=== PATIENT | male | born 1960 | race African-American/Black ===

== ENCOUNTER 2019-08-28 08:37 | Outpatient (CLI) | payer OTHER, SELFPAY ==
[2019-08-28 09:05] LABS: Hematocrit 42.8 % (42.0-52.0); Hemoglobin 14.3 g/dL (14.0-18.0); Mean Corpuscular HGB Conc 33.4 g/dl (32-36); Mean Corpuscular Hemoglobin 29.5 pg (26-34); Mean Corpuscular Volume 88.4 fl (80-100); Mean Platelet Volume 11.3 fl (7.4-10.4); Platelet Count Result 164 k/mm3 (150-375); Red Blood Count 4.84 M/mm3 (4.6-6.20); Red Cell Distribution Width 12.9 % (11.5-14.5); White Blood Count 4.5 K/mm3 (4.5-10.0)
[2019-08-28 09:19] LABS: Hemoglobin A1C 6.3 % (<5.7)
[2019-08-28 09:22] LABS: Alanine Aminotransferase 26 U/L (4-50); Albumin Level 4.2 g/dL (3.5-5.1); Alkaline Phosphatase 52 U/L (38-126); Aspartate Amino Transferase 31 U/L (17-59); Bilirubin,Total 0.5 mg/dL (0.2-1.3); Blood Urea Nitrogen 14 mg/dL (9-20); Carbon Dioxide 26 mmol/L (22-30); Chloride 102 mmol/L (98-107); Cholesterol 209 mg/dL (0-200); Estimated Glomerular Filt Rate > 60; Glucose 110 mg/dL (75-110); HDL Direct 44 mg/dL; Sodium 138 mmol/L (137-145); Triglycerides 158 mg/dL (<150)
[2019-08-28 09:32] LABS: LDL Cholesterol Direct 129 mg/dL
[2019-08-28 09:52] LABS: Prostate Specific Antigen 0.7 ng/mL (< OR = 4.0)
[2019-08-28 14:06] LABS: Creatinine Urine 133.8 mg/dL
[2019-08-28 14:10] LABS: MALB Creatinine Ratio 5.4 mg/g (0-30); Microalbumin Urine Random 7.2 mg/L (0-16.7)
== END 2019-08-28 08:38 | disposition home or self-care (01) ==
PROVIDERS: PCP Internal Medicine; Visit Provider Internal Medicine
DX: I10 Essential (primary) hypertension (principal); R73.01 Impaired fasting glucose; E78.5 Hyperlipidemia, unspecified; Z12.5 Encounter for screening for malignant neoplasm of prostate; Z79.899 Other long term (current) drug therapy
CPT/HCPCS: 36415; 80053; 80061; 82043; 83036; 84153; 84443; 85027; G0103

== ENCOUNTER 2019-09-23 11:06 | Outpatient (CLI) | payer OTHER, SELFPAY ==
--- NOTE | 2019-09-23 11:21 | ECHO_ITS ---
Patient Info Name: Lukas Monzon Age: 59 years : 1960 Gender: Male Ht: 72 in Wt: 225 lbs BSA: 2.30 m2 HR: 131 bpm BP: 88 / 85 mmHg Heart Rhythm: Sinus Rhythm Exam Date: 09/23/2019 11:46 AM Exam Location: [facility] Pulmonary Patient Status: Outpatient Admit Date: 09/23/2019 Staff Ordering Physician: Alfonso Mcfarlane MD Bulb Sorter: Chloé Jacobs RDCS Attending Provider: Alfonso Mcfarlane MD Exam Type: CA echo doppler color flow Study Info Indications R00.2 - Palpitations Complete two-dimensional, color flow and Doppler transthoracic echocardiogram is performed. Summary 1. Left ventricular chamber dimension is mildly enlarged. 2. Left ventricular systolic function is normal, estimated at 60-65%. 3. The left ventricular diastolic function is grade I diastolic dysfunction. 4. There is mild mitral valve regurgitation. 5. There is trace pulmonic regurgitation. Left Ventricle Tissue doppler is not performed. Left ventricular chamber dimension is mildly enlarged. Left ventricular systolic function is normal, estimated at 60-65%. The left ventricular diastolic function is grade I diastolic dysfunction. Right Ventricle Right ventricular chamber dimension is normal. Right ventricular systolic function is normal. Left Atria Left atrial chamber dimension is normal. Right Atria Right atrial chamber dimension is normal. Aortic Valve The aortic valve is trileaflet. There is no aortic valve stenosis. There is no aortic valve regurgitation. Pulmonic Valve There is trace pulmonic regurgitation. Mitral Valve There is no mitral valve stenosis. There is mild mitral valve regurgitation. Tricuspid Valve There is no tricuspid valve regurgitation. Pericardium/Pleural There is no pericardial effusion. Inferior Vena Cava Normal inferior vena cava with >50% collapse upon inspiration consistent with normal right atrial pressure, 5 mmHg. Aorta The aortic root size at the sinus of Valsalva is normal. Left Ventricular Outflow Tract Name Value Normal LVOT 2D LVOT Diameter 2.1 cm Pulmonic Valve Name Value Normal PV Doppler PV Peak Velocity 104 cm/s PV Peak Gradient 4 mmHg Mitral Valve Name Value Normal MV Doppler MV Decel [place] 324 cm/s2 MV PHT 61 ms MV Area (PHT) 3.6 cm2 4.0-5.0 MV Diastolic Function MV E Peak Velocity 69 cm/s MV A Peak Velocity 90 cm/s MV E/A 0.8 M
--- NOTE | 2019-09-23 11:22 | ECG_ITS ---
Measurements Intervals [place] Rate: 77 P: 24 GA: 192 QRS: -24 QRSD: 101 T: 16 QT: 380 QTc: 432 Interpretive Statements SINUS RHYTHM DELAYED PRECORDIAL R/S TRANSITION BORDERLINE ECG Electronically Signed On 09-23-2019 11:40:21 CDT by Julio Caldera D.O.
== END 2019-09-23 11:07 | disposition home or self-care (01) ==
LOC: ANHCARD 11:09
PROVIDERS: PCP Internal Medicine; Visit Provider Internal Medicine
DX: R00.1 Bradycardia, unspecified (principal); R00.2 Palpitations; R94.31 Abnormal electrocardiogram [ECG] [EKG]
CPT/HCPCS: 93005; 93306

== ENCOUNTER 2019-10-08 12:48 | Outpatient (CLI) | payer OTHER, SELFPAY ==
--- NOTE | 2019-10-11 12:23 | WPDHOLTEREM ---
Holter/Event Monitor Holter/Event Monitor Date of procedure: 10/08/19 Procedure Type: 48 hour holter monitor Indications: Palpitations Conclusion: 1. 48 hour holter monitor on 10/08/19. 2. Predominant rhythm is sinus rhythm. HR range 49-136 bpm; average HR 84 bpm. 3. There are 10,405 premature supraventricular complexes, 423 supraventricular couplets, 2,634 supraventricular bigeminy, and 6 supraventricular trigeminy. There are 2 short runs of atrial tachycardia, fastest at 146 bpm and longest lasting 5 beats. 4. There are 302 premature ventricular complexes and 9 ventricular bigeminy. No ventricular tachycardia. 5. Underlying first degree AV block. No significant pauses greater than 2 seconds. 6. Patient reports several episodes of skipping beats which demonstrate sinus rhythm, HR range 75-100 bpm with 3 PAC's.
== END 2019-10-08 12:49 | disposition home or self-care (01) ==
LOC: ANHCARD 12:51
PROVIDERS: PCP Internal Medicine; Visit Provider Internal Medicine
DX: R00.2 Palpitations (principal); I44.0 Atrioventricular block, first degree; I49.3 Ventricular premature depolarization; R00.8 Other abnormalities of heart beat
CPT/HCPCS: 93225; 93226

== ENCOUNTER 2020-08-26 08:29 | Outpatient (CLI) | payer OTHER, SELFPAY ==
[2020-08-26 09:06] LABS: Alanine Aminotransferase 32 U/L (4-50); Albumin Level 4.3 g/dL (3.5-5.1); Alkaline Phosphatase 53 U/L (38-126); Anion Gap 5 mmol/L (8-16); Aspartate Amino Transferase 37 U/L (17-59); Bilirubin,Total 0.6 mg/dL (0.2-1.3); Blood Urea Nitrogen 19 mg/dL (9-20); Calcium 9.2 mg/dL (8.4-10.2); Carbon Dioxide 29 mmol/L (22-30); Chloride 105 mmol/L (98-107); Cholesterol 175 mg/dL (0-200); Estimated Glomerular Filt Rate > 60; Glucose 110 mg/dL (75-110); HDL Direct 47 mg/dL; Sodium 139 mmol/L (137-145); Triglycerides 105 mg/dL (<150)
[2020-08-26 09:17] LABS: LDL Cholesterol Direct 98 mg/dL
[2020-08-26 09:25] LABS: Hemoglobin A1C 6.1 % (<5.7)
[2020-08-26 09:47] LABS: MALB Creatinine Ratio 8.1 mg/g (0-30); Microalbumin Urine Random 14.7 mg/L (0-16.7)
[2020-08-26 11:06] LABS: Creatinine Urine 180.7 mg/dL
== END 2020-08-26 08:30 | disposition home or self-care (01) ==
PROVIDERS: PCP Internal Medicine; Visit Provider Internal Medicine
DX: R73.01 Impaired fasting glucose (principal); I10 Essential (primary) hypertension
CPT/HCPCS: 36415; 80053; 80061; 82043; 83036

== ENCOUNTER 2020-10-27 07:58 | Outpatient (CLI) | payer OTHER, SELFPAY ==
--- NOTE | 2020-11-01 12:12 | WPDHOMESLEEP ---
Sleep Study - Home Unattended Date of Study: 10/27/20 Ordering Provider: Alfonso Mcfarlane MD Interpreting Provider: Loreta Moreno MD Home Sleep Study Type: Watch PAT Height: 1.83 m Weight: 106.594 kg Body Mass Index: 31.8 Neck Circumference (inches): 17 [place]: 5 Reason for Sleep Study Snoring, irregular heart beats Sleep History Lukas Monzon is a 60 year old man who snores occasionally, and it is always loud enough that others complain about it. He does not wake from sleep feeling short of breath. He occasionally wakes at night with heartburn belching or coughing. He occasionally has trouble sleeping with a cold. He kimmie not wake at night gasping for breath. He rarely has trouble breathing at night witnessed by others. He occasionally sweats excessively at night. He frequently notices his heart pounding or beating irregularly at night. He rarely falls asleep in the day,, never involuntarily, and he never falls asleep while driving. He does not have loss of muscle tone with strong emotion. He does not have daytime difficulty due to excessive sleepiness. He occasionally feels paralyzed on waking or falling asleep. He occasionally has vivid dreamlike scenes on waking or falling asleep. He is not afraid to go to sleep. He occasionally has nightmares. He rarely remembers his dreams. He occasionally has racing thoughts. He never feels sad or depressed. He occasionally has anxiety, and on occasion has muscular tension. He never notices parts of his body jerking, and he does not kick at night. He does not have crawling or aching feelings in his legs. He occasionally has leg pain at night. He does not have morning jaw pain, does not grind his teeth at night, is not bothered by pain in the day, and is not awakened by pain at night. He frequently wakes up feeling stiff in the morning with sore or achy muscles and pain in the neck and spine. Normal bedtime is 9:00 p.m. falling asleep shortly, waking twice at night to urinate, returning to sleep shortly. He wakes at 3:30 am. His weekend schedule is different with a bedtime of 11;00 p.m. and he wakes at 7:00 a.m. He sometimes takes naps in the afternoon or evening, and sometimes a short nap is refreshing. He is drowsy in the morning for 1 hour or longer. He feels better in the afternoon compared to other times of day. Habits: Former smoker. Caffeine: one cup of coffee and 1 soda a day. Alcohol: 1 beer and a shot daily. No recreational drugs. [facility] Past Medical History Medical History (Updated 11/01/20 @ 12:26 by Loreta Moreno MD) Dyslipidemia Essential hypertension GERD (gastroesophageal reflux disease) IFG (impaired fasting glucose) Family History Family History Grandparent Diabetes mellitus Mother Diabetes mellitus Family history of obesity Hypertension Family history of kidney disease Other Family history of malignant neoplasm Social History Social History (Updated 09/05/20 @ 14:08 by Mita May MA) Smoking status: Former smoker Second hand tobacco smoke exposure: No Smoking end date: 06/16/00 Alcohol intake: current Drinks per week: 24 Substance use type: marijuana Medications Home Medications Medication Instructions Recorded Confirmed Type aspirin 81 mg tablet,delayed 81 mg PO DAILY 07/12/19 09/05/20 History release cholecalciferol (vitamin D3) 125 5,000 unit PO DAILY 07/12/19 09/05/20 History mcg (5,000 unit) capsule coenzyme Q10 10 mg capsule 10 mg PO ONCE 07/12/19 09/05/20 History multivitamin 1 tablet PO DAILY 07/12/19 09/05/20 History niacin 500 mg capsule,extended 500 mg PO .QHS cap 07/12/19 09/05/20 History release turmeric root extract 500 mg 500 mg PO DAILY 07/12/19 09/05/20 History capsule rosuvastatin 5 mg tablet 5 mg PO DAILY #90 tablet 03/21/20 09/05/20 Rx sildenafil 50 mg tablet 50 mg PO DAILY PRN #10 tablet 03/21/20 09/05/20 Rx diltiazem HCl 60 mg See Rx Ins
[2020-11-01 12:22] VITALS: BMI 31.8
== END 2020-10-27 07:59 | disposition home or self-care (01) ==
LOC: ANHCSM 07:58
PROVIDERS: PCP Internal Medicine; Visit Provider Internal Medicine
DX: G47.10 Hypersomnia, unspecified (principal); G47.33 Obstructive sleep apnea (adult) (pediatric)
CPT/HCPCS: 95800

== ENCOUNTER → 2020-11-21 02:45 | Outpatient (CLI) | payer OTHER, SELFPAY ==
[2020-11-21 23:32] LABS: SARS-CoV-2 RNA PCR Negative
== END ==
PROVIDERS: PCP Internal Medicine; Visit Provider Internal Medicine Critical Care Medicine
DX: R68.89 Other general symptoms and signs (principal); Z20.822 Contact with and (suspected) exposure to COVID-19
CPT/HCPCS: C9803; U0003; U0005

== ENCOUNTER 2020-11-24 16:00 | Outpatient (CLI) | payer OTHER, SELFPAY ==
--- NOTE | 2020-11-29 18:22 | WPDSLEEPSTUD ---
Sleep Study Date of Study: 11/24/20 Ordering Provider: Alfonso Mcfarlane MD Interpreting Physician: Loreta Moreno MD Sleep Study Type: CPAP Titration Height: 1.83 m Weight: 108.862 kg Body Mass Index: 32.5 Neck Circumference (inches): 17 [place]: 11 Reason for Sleep Study 10/27/2020 Home sleep test with WatchPat showing moderate obstructive sleep apnea, AHI 15.3, central AHI 5.9, desaturation to 75%, 5.7 minutes spent below 88% which is 1.3% of the total sleep time; he presents for a CPAP titration. Sleep History Lukas Monzon is a 60 year old man who snores occasionally, and it is always loud enough that others complain about it. He does not wake from sleep feeling short of breath. He occasionally wakes at night with heartburn belching or coughing. He occasionally has trouble sleeping with a cold. He kimmie not wake at night gasping for breath. He rarely has trouble breathing at night witnessed by others. He occasionally sweats excessively at night. He frequently notices his heart pounding or beating irregularly at night. He rarely falls asleep in the day,, never involuntarily, and he never falls asleep while driving. He does not have loss of muscle tone with strong emotion. He does not have daytime difficulty due to excessive sleepiness. He occasionally feels paralyzed on waking or falling asleep. He occasionally has vivid dreamlike scenes on waking or falling asleep. He is not afraid to go to sleep. He occasionally has nightmares. He rarely remembers his dreams. He occasionally has racing thoughts. He never feels sad or depressed. He occasionally has anxiety, and on occasion has muscular tension. He never notices parts of his body jerking, and he does not kick at night. He does not have crawling or aching feelings in his legs. He occasionally has leg pain at night. He does not have morning jaw pain, does not grind his teeth at night, is not bothered by pain in the day, and is not awakened by pain at night. He frequently wakes up feeling stiff in the morning with sore or achy muscles and pain in the neck and spine. Normal bedtime is 9:00 p.m. falling asleep shortly, waking twice at night to urinate, returning to sleep shortly. He wakes at 3:30 am. His weekend schedule is different with a bedtime of 11;00 p.m. and he wakes at 7:00 a.m. He sometimes takes naps in the afternoon or evening, and sometimes a short nap is refreshing. He is drowsy in the morning for 1 hour or longer. He feels better in the afternoon compared to other times of day. Habits: Former smoker. Caffeine: one cup of coffee and 1 soda a day. Alcohol: 1 beer and a shot daily. No recreational drugs COUNTS INCLUDE 234 BEDS AT THE [facility] Past Medical History Medical History (Updated 11/29/20 @ 19:22 by Lortea Moreno MD) Dyslipidemia Essential hypertension GERD (gastroesophageal reflux disease) IFG (impaired fasting glucose) Obstructive sleep apnea (~10/2020) Family History Family History Grandparent Diabetes mellitus Mother Diabetes mellitus Family history of obesity Hypertension Family history of kidney disease Other Family history of malignant neoplasm Social History Social History (Updated 09/05/20 @ 14:08 by Mita May MA) Smoking status: Former smoker Second hand tobacco smoke exposure: No Smoking end date: 06/16/00 Alcohol intake: current Drinks per week: 24 Substance use type: marijuana Medications Home Medications Medication Instructions Recorded Confirmed Type aspirin 81 mg tablet,delayed 81 mg PO DAILY 07/12/19 09/05/20 History release cholecalciferol (vitamin D3) 125 5,000 unit PO DAILY 07/12/19 09/05/20 History mcg (5,000 unit) capsule coenzyme Q10 10 mg capsule 10 mg PO ONCE 07/12/19 09/05/20 History multivitamin 1 tablet PO DAILY 07/12/19 09/05/20 History niacin 500 mg capsule,extended 500 mg PO .QHS cap 07/12/19 09/05/20 History release turmeric root extract 500 mg 500 mg PO DAILY
[2020-11-29 18:23] VITALS: BMI 32.5
== END 2020-11-25 07:18 | disposition home or self-care (01) ==
LOC: ANHCSM 11-27 10:14
PROVIDERS: PCP Internal Medicine; Visit Provider Internal Medicine
DX: G47.33 Obstructive sleep apnea (adult) (pediatric) (principal); Z68.32 Body mass index [BMI] 32.0-32.9, adult
CPT/HCPCS: 95811

== ENCOUNTER 2021-03-12 09:27 | Outpatient (CLI) | payer OTHER, SELFPAY ==
[2021-03-12 09:57] LABS: Basophils Percent Auto 0.7 % (0.2-1.2); Eosinophils Percent Auto 0.7 % (0-4.4); Hemoglobin 13.9 g/dL (14.0-18.0); Immature Granulocyte Absolute 0.03 K/mm3 (0.00-0.031); Immature Granulocyte Percent A 0.5 % (0-0.5); Lymphocytes Absolute Auto 1.62 K/mm3 (0.9-3.2); Lymphocytes Percent Auto 28.6 % (18.3-44.2); Mean Corpuscular HGB Conc 33.9 g/dl (32-36); Mean Corpuscular Hemoglobin 29.9 pg (26-34); Mean Corpuscular Volume 88.2 fl (80-100); Mean Platelet Volume 11.1 fl (7.4-10.4); Monocytes Absolute Auto 0.7 K/mm3 (0.1-0.6); Monocytes Percent Auto 11.8 % (2.6-8.5); Neutrophils Absolute Auto 3.3 K/mm3 (1.3-6.7); Neutrophils Percent Auto 57.7 % (45.5-73.1); Platelet Count Result 167 k/mm3 (150-375); Red Blood Count 4.65 M/mm3 (4.6-6.20); Red Cell Distribution Width 13.6 % (11.5-14.5); White Blood Count 5.7 K/mm3 (4.5-10.0)
[2021-03-12 10:41] LABS: Prostate Specific Antigen 0.9 ng/mL (< OR = 4.0)
[2021-03-12 11:19] LABS: Hemoglobin A1C 6.3 % (<5.7)
[2021-03-12 11:29] LABS: Vitamin D 25 Hydroxy 46.9 ng/mL
[2021-03-12 11:36] LABS: Creatinine Urine 243.1 mg/dL
[2021-03-12 11:37] LABS: Alanine Aminotransferase 42 U/L (4-50); Albumin Level 4.5 g/dL (3.5-5.1); Alkaline Phosphatase 57 U/L (38-126); Anion Gap 11 mmol/L (8-16); Aspartate Amino Transferase 38 U/L (17-59); Bilirubin,Total 0.7 mg/dL (0.2-1.3); Blood Urea Nitrogen 17 mg/dL (9-20); Calcium 9.3 mg/dL (8.4-10.2); Carbon Dioxide 26 mmol/L (22-30); Chloride 102 mmol/L (98-107); Estimated Glomerular Filt Rate > 60; Glucose 109 mg/dL (65-110); Potassium 4.1 mmol/L (3.4-5.0); Sodium 139 mmol/L (137-145)
[2021-03-12 11:40] LABS: MALB Creatinine Ratio 9.8 mg/g (0-30); Microalbumin Urine Random 23.9 mg/L (0-16.7)
== END 2021-03-12 09:28 | disposition home or self-care (01) ==
PROVIDERS: PCP Internal Medicine; Visit Provider Internal Medicine
DX: R73.01 Impaired fasting glucose (principal); E78.5 Hyperlipidemia, unspecified; I10 Essential (primary) hypertension; K21.9 Gastro-esophageal reflux disease without esophagitis; E55.9 Vitamin D deficiency, unspecified; Z12.5 Encounter for screening for malignant neoplasm of prostate
CPT/HCPCS: 36415; 80053; 82043; 82306; 83036; 84153; 84443; 85025; G0103

== ENCOUNTER → 2021-05-26 00:49 | Outpatient (CLI) | payer OTHER, SELFPAY ==
[2021-05-26 12:25] LABS: Influenza Control Positive
[2021-05-26 20:10] LABS: SARS-CoV-2 RNA PCR Negative
== END ==
PROVIDERS: PCP Internal Medicine; Visit Provider Internal Medicine
DX: R68.89 Other general symptoms and signs (principal); Z20.822 Contact with and (suspected) exposure to COVID-19
CPT/HCPCS: 87804; C9803; U0003; U0005

== ENCOUNTER 2021-06-15 09:30 | Outpatient (CLI) | payer OTHER, SELFPAY ==
[2021-06-15 10:26] LABS: Creatinine Urine 281.9 mg/dL
[2021-06-15 10:31] LABS: MALB Creatinine Ratio 4.1 mg/g (0-30); Microalbumin Urine Random 11.5 mg/L (0-16.7)
[2021-06-15 10:32] LABS: Hemoglobin A1C 6.1 % (<5.7)
== END 2021-06-15 09:31 | disposition home or self-care (01) ==
LOC: ANHLAB 09:32
PROVIDERS: PCP Internal Medicine; Visit Provider Internal Medicine
DX: R73.01 Impaired fasting glucose (principal)
CPT/HCPCS: 36415; 82043; 83036

== ENCOUNTER 2021-12-22 09:40 | Emergency (ER) | payer OTHER, SELFPAY ==
[2021-12-22 10:10] VITALS: BP 135/76; PULSE 97; RESP 20; TEMP 36.4; O2SAT 100
--- NOTE | 2021-12-22 10:26 | ED.GENADULT ---
HPI - General Adult General Chief complaint: Ear Stated complaint: ear problems Time Seen by Provider: 12/22/21 10:45 Source: patient Mode of arrival: ambulatory Limitations: no limitations History of Present Illness HPI narrative: 61-year-old male patient presents to the [facility] with complaints of the right ear feeling clogged and somewhat painful and states he has not been able to hear out of it. Patient states its been clogged for about a month however is gotten worse over the Past couple of days now he cannot hear out of it at all. Patient states he tried some [id number] wax removal kit from [employer] but thinks that it just got shoved deeper down and did not really get anything out. Denies fevers, body aches or chills. Related Data Home Medications Medication Instructions Recorded Confirmed aspirin 81 mg tablet,delayed 81 mg PO DAILY 07/12/19 10/05/21 release (Adult Low Dose Aspirin) cholecalciferol (vitamin D3) 125 5,000 unit PO DAILY 07/12/19 10/05/21 mcg (5,000 unit) capsule coenzyme Q10 10 mg capsule (Co 10 mg PO ONCE 07/12/19 10/05/21 Q-10) multivitamin 1 tablet PO DAILY 07/12/19 10/05/21 niacin 500 mg capsule,extended 500 mg PO .QHS 07/12/19 10/05/21 release turmeric root extract 500 mg 500 mg PO DAILY 07/12/19 10/05/21 capsule Allergies Allergy/AdvReac Type Severity Reaction Status Date / Time No Known Allergies Allergy Verified 10/05/21 13:21 Review of Systems Review of Systems: CONSTITUTIONAL: Denies fever, chills, or sweats. EYES: Denies visual changes, redness, or discharge. ENT: Denies rhinorrhea, congestion, sore throat, positive right ear pain and decreased hearing CARDIOVASCULAR: Denies chest pain, palpitations, or edema. RESPIRATORY: Denies cough or dyspnea. GASTROINTESTINAL: Denies abdominal pain, nausea, vomiting, or diarrhea. GENITOURINARY: Denies dysuria or hematuria. SKIN: Denies rash or itching. MUSCULOSKELETAL: Denies back pain, joint pain, or myalgia. NEUROLOGIC: Denies headache, numbness, or weakness. PSYCHIATRIC: Denies anxiety or depression. [facility] Past Medical History Medical History Dyslipidemia Essential hypertension GERD (gastroesophageal reflux disease) IFG (impaired fasting glucose) Obstructive sleep apnea (~10/2020) Family History Family History Grandparent Diabetes mellitus Mother Diabetes mellitus Family history of obesity Hypertension Family history of kidney disease Other Family history of malignant neoplasm Social History Social History Second hand tobacco smoke exposure: No Smoking end date: 06/16/00 Alcohol intake: current Drinks per week: 24 Substance use: former Substance use type: marijuana Comments At the time of my signature I agree with nursing past medical history, surgical, social, and family history. There is no relevant family history pertinent to the presenting complaint. Exam Narrative: GENERAL: Well-appearing, well-nourished, and in no acute distress. HEAD: Normocephalic, atraumatic. EYES: PERRLA and EOMI. ENT: Nares clear, no rhinorrhea or epistaxis. Mucous membranes moist. Unable to visualize tympanic membranes in bilateral ears due to cerumen impaction. NECK: Supple. No lymphadenopathy CHEST: Clear to auscultation. No respiratory distress. HEART: Regular rate and rhythm. No murmur heard. Normal peripheral pulses. ABDOMEN: Soft, nontender, nondistended, normal active bowel sounds. EXTREMITIES: Normal range of motion. No edema. SKIN: Warm, dry, no rash. NEURO: No focal deficits. Alert and oriented x3. Course Course Level of Care: Express Care Visit Vital Signs Vital signs: Vital Signs Temperature 36.4 C L 12/22/21 10:10 Pulse Rate 97 12/22/21 10:10 Respiratory Rate 20 12/22/21 10:10 Blood Pressure 135/76
[2021-12-22] MEDS: CARBAMIDE PEROXIDE 6.5% OT SOLN 15 ML BTL 5 DROP EACH EAR (10:53)
== END 2021-12-22 11:37 | disposition home or self-care (01) ==
PROVIDERS: Emergency Provider Nurse Practitioner Family; PCP Internal Medicine
DX: H61.23 Impacted cerumen, bilateral (principal); Z87.891 Personal history of nicotine dependence; E78.5 Hyperlipidemia, unspecified; I10 Essential (primary) hypertension; K21.9 Gastro-esophageal reflux disease without esophagitis; G47.33 Obstructive sleep apnea (adult) (pediatric); R73.01 Impaired fasting glucose; Z79.82 Long term (current) use of aspirin
CPT/HCPCS: 69210; 99212; A9270; G0463

== ENCOUNTER 2022-02-04 08:04 | Emergency (ER) | payer OTHER, SELFPAY ==
[2022-02-04 08:11] VITALS: BP 149/97; PULSE 91; RESP 16; TEMP 37.7; O2SAT 99
--- NOTE | 2022-02-04 08:12 | ED.URI ---
HPI - URI/Sore Throat General Chief Complaint: Upper Respiratory Infection Stated Complaint: uri Time Seen by Provider: 02/04/22 08:12 Source: patient, RN notes reviewed and old records reviewed Mode of arrival: ambulatory Limitations: no limitations History of Present Illness HPI Narrative: 62-year-old male presents to the [facility] with concerns that he might have COVID. Patient states for the last couple months he has had some congestion, lots of phlegm. For the last 2 days has developed a fever increased fatigue and increased congestion. Reports a fever of 101 last night. Has been taking acid reflux medication and Mucinex to help with symptoms. Denies any chest pain or abdominal pain. Denies any shortness of breath, nausea, vomiting. MD elicited complaint: fever Related Data Home Medications Medication Instructions Recorded Confirmed aspirin 81 mg tablet,delayed 81 mg PO DAILY 07/12/19 02/04/22 release (Adult Low Dose Aspirin) cholecalciferol (vitamin D3) 125 5,000 unit PO DAILY 07/12/19 02/04/22 mcg (5,000 unit) capsule coenzyme Q10 10 mg capsule (Co 10 mg PO ONCE 07/12/19 02/04/22 Q-10) multivitamin 1 tablet PO DAILY 07/12/19 02/04/22 niacin 500 mg capsule,extended 500 mg PO .QHS 07/12/19 02/04/22 release turmeric root extract 500 mg 500 mg PO DAILY 07/12/19 02/04/22 capsule Allergies Allergy/AdvReac Type Severity Reaction Status Date / Time No Known Allergies Allergy Verified 10/05/21 13:21 Review of Systems Review of Systems: All systems reviewed & are unremarkable except as noted in HPI and below Constitutional: Constitutional: Reports as per HPI, Denies chills, Reports fatigue and Reports fever(s) Eyes: Eyes: Reports no additional eye complaints ENT: Reports as per HPI and Reports nasal congestion Cardiovascular: Cardiovascular: Reports no additional cardiovascular complaints Respiratory: Respiratory: Reports as per HPI, Reports chest congestion, Denies cough, Denies dyspnea and Denies wheezing Gastrointestinal: Gastrointestinal: Reports no additional gastrointestinal complaints Musculoskeletal: Musculoskeletal: Reports no additional musculoskeletal complaints Integumentary/Breasts: Skin/Breast: Reports system reviewed and no additional complaints, except as docu Neurologic: Reports system reviewed and no additional complaints, except as documented Psychiatric: Psychiatric: Reports no additional psychiatric complaints Allergic/Immunologic: Allergic/Immunologic: Reports no additional allergic/immunologic complaints PMFSH Past Medical History Medical History Dyslipidemia Essential hypertension GERD (gastroesophageal reflux disease) IFG (impaired fasting glucose) Obstructive sleep apnea (~10/2020) Family History Family History Grandparent Diabetes mellitus Mother Diabetes mellitus Family history of obesity Hypertension Family history of kidney disease Other Family history of malignant neoplasm Social History Social History Second hand tobacco smoke exposure: No Smoking end date: 06/16/00 Alcohol intake: current Drinks per week: 24 Substance use: former Substance use type: marijuana Comments At the time of my signature, I reviewed and agree with the nursing past medical, surgical, social, and family history. There is no relevant family history pertinent to the patient complaint. Exam Const: General: no acute distress, alert and ill appearing (Acute on chronic) acutely and chronically Nutritional Appearance: well nourished Orientation/consciousness: patient oriented x3 Limitations: no limitations HENMT: Head: normal to inspection Ears: external ears normal and Abnormal EAC present excessive cerumen bilateral; no erythema and no edema General nose exam: Normal external nose present
== END 2022-02-04 08:50 | disposition home or self-care (01) ==
PROVIDERS: Emergency Provider Nurse Practitioner
DX: U07.1 COVID-19 (principal); H61.23 Impacted cerumen, bilateral; E78.5 Hyperlipidemia, unspecified; I10 Essential (primary) hypertension; K21.9 Gastro-esophageal reflux disease without esophagitis; R73.01 Impaired fasting glucose; G47.33 Obstructive sleep apnea (adult) (pediatric); Z87.891 Personal history of nicotine dependence
CPT/HCPCS: 69210; 87426; 99213; C9803; G0463

== ENCOUNTER 2022-04-06 08:18 | Outpatient (CLI) | payer OTHER, SELFPAY ==
[2022-04-06 09:26] LABS: Vitamin D 25 Hydroxy 63.5 ng/mL
[2022-04-06 09:44] LABS: Alanine Aminotransferase 37 U/L (6-50); Albumin Level 4.3 g/dL (3.5-5.1); Alkaline Phosphatase 53 U/L (38-126); Anion Gap 11 mmol/L (8-16); Aspartate Amino Transferase 41 U/L (17-59); Bilirubin,Total 0.4 mg/dL (0.2-1.3); Blood Urea Nitrogen 21 mg/dL (9-20); Calcium 8.9 mg/dL (8.4-10.2); Carbon Dioxide 25 mmol/L (22-30); Chloride 104 mmol/L (98-107); Cholesterol 168 mg/dL (0-200); Estimated Glomerular Filt Rate > 60; Glucose 110 mg/dL (65-110); HDL Direct 42 mg/dL; Sodium 140 mmol/L (137-145); Triglycerides 95 mg/dL (<150)
[2022-04-06 09:54] LABS: Hemoglobin A1C 6.6 % (<5.7); LDL Cholesterol Direct 98 mg/dL
[2022-04-06 10:10] LABS: Prostate Specific Antigen 1.1 ng/mL (< OR = 4.0)
== END 2022-04-06 08:19 | disposition home or self-care (01) ==
PROVIDERS: PCP Internal Medicine; Visit Provider Internal Medicine
DX: R73.01 Impaired fasting glucose (principal); I10 Essential (primary) hypertension; E78.5 Hyperlipidemia, unspecified; Z12.5 Encounter for screening for malignant neoplasm of prostate; E55.9 Vitamin D deficiency, unspecified
CPT/HCPCS: 36415; 80053; 80061; 82306; 83036; 84153; G0103

== ENCOUNTER 2022-05-31 09:48 | Emergency (ER) | payer OTHER, SELFPAY ==
[2022-05-31 09:57] VITALS: BP 138/118; PULSE 68; RESP 18; TEMP 36.4; O2SAT 99
--- NOTE | 2022-05-31 10:03 | ED.URI ---
HPI - URI/Sore Throat General Chief Complaint: Upper Respiratory Infection Stated Complaint: Sore Throat Time Seen by Provider: 05/31/22 10:00 Source: patient Mode of arrival: ambulatory Limitations: no limitations History of Present Illness HPI Narrative: Mr. Monzon is a 62-year-old male patient presenting to the clinic today with complaints of possible salivary gland stone obstruction. He reports that he has had this in the past. Reports 4 days ago his right lower jaw began to swell and now it is tender and painful. He reports he has been sucking on some sour candy however this is not improved. States that when he is swallowing the saliva does have a foul taste. He denies any fever or chills. Related Data Home Medications Medication Instructions Recorded Confirmed aspirin 81 mg tablet,delayed 81 mg PO DAILY 07/12/19 05/31/22 release (Adult Low Dose Aspirin) cholecalciferol (vitamin D3) 125 5,000 unit PO DAILY 07/12/19 05/31/22 mcg (5,000 unit) capsule multivitamin 1 tablet PO DAILY 07/12/19 05/31/22 niacin 500 mg capsule,extended 500 mg PO .QHS 07/12/19 05/31/22 release turmeric root extract 500 mg 500 mg PO DAILY 07/12/19 05/31/22 capsule Allergies Allergy/AdvReac Type Severity Reaction Status Date / Time No Known Allergies Allergy Verified 05/31/22 11:12 Review of Systems Review of Systems: Pertinent positives per HPI. Patient denies any fever, chills, rash, headache, visual changes, dizziness, cough, shortness of breath, chest pain, palpitations, nausea, vomiting, diarrhea, constipation, abdominal pain, or any urinary issues. [facility] Past Medical History Medical History Dyslipidemia Essential hypertension GERD (gastroesophageal reflux disease) IFG (impaired fasting glucose) Obstructive sleep apnea (~10/2020) Family History Family History Grandparent Diabetes mellitus Mother Diabetes mellitus Family history of obesity Hypertension Family history of kidney disease Other Family history of malignant neoplasm Social History Social History Smoking status: Unknown if ever smoked Second hand tobacco smoke exposure: No Smoking end date: 06/16/00 Alcohol intake: current Drinks per week: 24 Substance use: former Substance use type: marijuana Lack of Transportation: No Lack of Food: Never True Current Housing: I Have Housing Concerned About Future Housing: No Difficulty Paying Gas/Electric Bills: No Difficulty Paying for Meds: No 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on: High School Diploma/GED Difficulty w/ Childcare or Family Care: No Comments At the time of my signature, I reviewed and agree with the nursing past medical, surgical, social, and family history. There is no relevant family history pertinent to the patient complaint. Exam Narrative: General: Well-developed, well nourished, in no apparent distress Head: Normocephalic, atraumatic Eyes: Pupils equally round and reactive to light bilaterally, EOM intact, sclera and conjunctive clear, no discharge, lids normal Ears: TMs intact and clear, ear canals clear, no drainage, grossly hearing normal. Nose: Nares patent, no discharge, no inflammation, no sinus tenderness. Mouth: Oral pharynx without lesions or masses, good dentition, MMM. Swelling of the submandibular jaw on the right side with induration and fluctuance. Area measuring 4-1/2 x 3 cm. Neck: Supple, trachea midline, no enlargement of anterior or posterior cervical nodes, no thyroid masses or goiter palpable. Cardio: Regular rate and rhythm, s1 and s2 normal, no murmur appreciated. Resp: Clear to auscultation bilaterally, no rhonchi, rales, wheezing or rubs Course Course Emergency Course: Portions of this record may have been created with voice recogni
== END 2022-05-31 10:12 | disposition short-term general hospital (02) ==
LOC: EXPCOLL 09:52
PROVIDERS: Emergency Provider Nurse Practitioner Family; PCP Internal Medicine
DX: K11.20 Sialoadenitis, unspecified (principal); R59.0 Localized enlarged lymph nodes; E78.5 Hyperlipidemia, unspecified; I10 Essential (primary) hypertension; K21.9 Gastro-esophageal reflux disease without esophagitis; R73.01 Impaired fasting glucose; Z79.82 Long term (current) use of aspirin
CPT/HCPCS: 99211; 99212; G0463

== ENCOUNTER 2022-05-31 10:26 | Emergency (ER) | payer OTHER, SELFPAY ==
--- NOTE | ~2022-05-31 | CT_ITS ---
EXAMINATION: CT soft tissue neck w con DATE: 05/31/2022 12:35 INDICATION: Right jaw swelling. TECHNIQUE: Computed tomography (CT) of the neck was performed with 75 mL Omnipaque-350 intravenous co ntrast. Automated exposure control and iterative reconstruction technique were employed. The dose-javier gth product was 550.15 mGy-cm. COMPARISON: None FINDINGS: There is mild emphysema. There are 14 mm and 11 mm stones in the duct for right submandibul ar gland. There is enlargement of right submandibular gland, consistent with inflammation. There is s oft tissue swelling involving the floor of mouth, base of tongue, and right aryepiglottic fold. There is mild right submandibular lymphadenopathy, likely reactive. The paranasal sinuses are clear. The m astoid air cells are normal. There is a carious lesion of tooth #2. There is moderate cervical spondy losis. IMPRESSION: 1. Stones in the duct for right submandibular gland with inflammation of the adjacent soft tissues an d right submandibular gland. 2. Mild right submandibular lymphadenopathy, likely reactive. 3. Carious lesion of tooth #2. Reviewed, dictated and finalized at location A. [facility]MIST IMPRESSION: 1. Stones in the duct for right submandibular gland with inflammation of the ad jacent soft tissues and right submandibular gland. 2. Mild right submandibular lymphadenopathy, likely reactive. 3. Carious lesion of tooth #2.
[2022-05-31 10:47] VITALS: BP 146/95; PULSE 86; RESP 16; TEMP 36.3; O2SAT 99
--- NOTE | 2022-05-31 11:32 | ED.GENADULT ---
HPI - General Adult General Chief complaint: Unspecified Stated complaint: R. sided jaw pain Time Seen by Provider: 05/31/22 11:27 History of Present Illness HPI narrative: Patient is a 62-year-old male here for evaluation of right-sided jaw pain over the past 4 days. He has a history of sialoliths and has passed several large stones but states that his jaw has remained swollen and painful. He has been unable to tolerate his secretions and has been spitting them out. No fevers, chills, difficulty breathing. Related Data Home Medications Medication Instructions Recorded Confirmed aspirin 81 mg tablet,delayed 81 mg PO DAILY 07/12/19 05/31/22 release (Adult Low Dose Aspirin) cholecalciferol (vitamin D3) 125 5,000 unit PO DAILY 07/12/19 05/31/22 mcg (5,000 unit) capsule multivitamin 1 tablet PO DAILY 07/12/19 05/31/22 niacin 500 mg capsule,extended 500 mg PO .QHS 07/12/19 05/31/22 release turmeric root extract 500 mg 500 mg PO DAILY 07/12/19 05/31/22 capsule Allergies Allergy/AdvReac Type Severity Reaction Status Date / Time No Known Allergies Allergy Verified 05/31/22 11:12 Review of Systems Review of Systems: Gen: Denies fevers or chills Eyes: Denies eye pain or visual change ENT: Reports right-sided jaw swelling Respiratory: Denies shortness of breath or cough CV: Denies chest pain or palpitations GI: Denies abdominal pain nausea, emesis or diarrhea denies burning, urgency, frequency or hematuria Musculoskeletal: Denies back pain or muscle pain Neuro: Denies numbness, tingling, weakness or focal weakness Skin: Denies rash Except as documented, all other systems reviewed and negative [facility] Past Medical History Medical History Dyslipidemia Essential hypertension GERD (gastroesophageal reflux disease) IFG (impaired fasting glucose) Obstructive sleep apnea (~10/2020) Family History Family History Grandparent Diabetes mellitus Mother Diabetes mellitus Family history of obesity Hypertension Family history of kidney disease Other Family history of malignant neoplasm Social History Social History Smoking status: Unknown if ever smoked Second hand tobacco smoke exposure: No Smoking end date: 06/16/00 Alcohol intake: current Drinks per week: 24 Substance use: former Substance use type: marijuana Lack of Transportation: No Lack of Food: Never True Current Housing: I Have Housing Concerned About Future Housing: No Difficulty Paying Gas/Electric Bills: No Difficulty Paying for Meds: No 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on: High School Diploma/GED Difficulty w/ Childcare or Family Care: No Exam Narrative: APPEARANCE: Well appearing, no pain in distress, well-nourished. Head: Normocephalic and atraumatic. EYES: PERRLA/EOMI, conjunctivae clear NOSE: No nasal drainage EARS: External ear normal in appearance THROAT: Marked swelling and exudates overlying right Stensen's duct; submandibular swelling on the right, patient is spitting his secretions into an emesis bag and has a muffled voice. Right side of tongue is slightly swollen as well. NECK: Supple. No adenopathy, no masses. RESPIRATORY: Airway patent, respirations nonlabored. Clear to auscultation bilaterally, no rales, rhonchi, wheezing. CARDIOVASCULAR: Regular rate and rhythm without murmurs, rubs, or gallops. ABDOMINAL: Normoactive bowel sounds. Soft, nontender, nondistended. No rebound tenderness or guarding. MUSCULOSKELETAL: Extremities are warm and well-perfused. Moves all extremities well. No edema. NEURO: Normal speech. No focal neurologic deficits. SKIN: Skin is warm and dry. No rashes. PSYCHIATRIC: Normal affect/mood. Course Vital Signs Vital signs: Vital Signs Temperature 97.4 F L 05/31/22 10:47 Pulse Rate
[2022-05-31] MEDS: methylPREDNISolone SOD SUCC 125 MG VIAL IV PUSH (11:54)
[2022-05-31] MEDS: AMPICILLIN SULB 1.5 GM/NS 50ML 1.5 GM/50 ML VIAL IVPB (11:54)
[2022-05-31 12:09] LABS: Basophils Absolute Auto 0.1 K/mm3 (0.0-0.1); Basophils Percent Auto 0.5 % (0.2-1.2); Eosinophils Absolute Auto 0.1 K/mm3 (0-0.3); Eosinophils Percent Auto 0.7 % (0-4.4); Hematocrit 42.1 % (42.0-52.0); Hemoglobin 13.8 g/dL (14.0-18.0); Immature Granulocyte Absolute 0.04 K/mm3 (0.00-0.031); Immature Granulocyte Percent A 0.4 % (0-0.5); Lymphocytes Absolute Auto 1.74 K/mm3 (0.9-3.2); Lymphocytes Percent Auto 15.8 % (18.3-44.2); Mean Corpuscular HGB Conc 32.8 g/dl (32-36); Mean Corpuscular Hemoglobin 29.7 pg (26-34); Mean Corpuscular Volume 90.7 fl (80-100); Mean Platelet Volume 10.6 fl (7.4-10.4); Monocytes Absolute Auto 1.4 K/mm3 (0.1-0.6); Monocytes Percent Auto 12.3 % (2.6-8.5); Neutrophils Absolute Auto 7.8 K/mm3 (1.3-6.7); Neutrophils Percent Auto 70.3 % (45.5-73.1); Platelet Count Result 206 k/mm3 (150-375); Red Blood Count 4.64 M/mm3 (4.6-6.20); Red Cell Distribution Width 13.2 % (11.5-14.5)
[2022-05-31] MEDS: SODIUM CHLORIDE 0.9% IV 1,000 ML 999 ML IV CONT (13:08)
[2022-05-31 13:20] LABS: Alanine Aminotransferase 37 U/L (6-50); Albumin Level 4.3 g/dL (3.5-5.1); Alkaline Phosphatase 87 U/L (38-126); Anion Gap 9 mmol/L (8-16); Aspartate Amino Transferase 43 U/L (17-59); Bilirubin,Total 0.8 mg/dL (0.2-1.3); Blood Urea Nitrogen 12 mg/dL (9-20); Calcium 8.9 mg/dL (8.4-10.2); Carbon Dioxide 27 mmol/L (22-30); Chloride 103 mmol/L (98-107); Estimated CRCL calculation 80 ml/min; Estimated Glomerular Filt Rate > 60; Glucose 112 mg/dL (65-110); Potassium 4.2 mmol/L (3.4-5.0); Sodium 139 mmol/L (137-145)
--- NOTE | 2022-05-31 14:44 | WPDCN ---
Assessment and Plan Assessment and plan (1) Sialadenitis: Code(s): K11.20 - Sialoadenitis, unspecified Status: Acute Assessment and Plan: Discussed patient with Dr. Tomi Luna at [facility], will need follow up there. Dc on clindamycin tid to qid, medrol dose timbo, patient must milk/massage, U ER with any worsening symptoms. Voiced understanding of plan. If the stones become visible in the oral cavity, follow up with me for excision. Would still refer to U. HPI Data of Consult Date/Time: 05/31/22 14:44 Requesting Physician: ER Primary Care Provider: Obed Mendoza DO Consult Narrative Narrative: Lukas Monzon is a 62 year old male with a hx of recurrent sialadenitis. CT personally reviewed demonstrates two stones 11 and 14mm. Review of Systems Review of Systems: All systems reviewed & are unremarkable except as noted in HPI and below Constitutional: Constitutional: Reports as per HPI [facility] Past Medical History Medical History Dyslipidemia Essential hypertension GERD (gastroesophageal reflux disease) IFG (impaired fasting glucose) Obstructive sleep apnea (~10/2020) Family History Family History Grandparent Diabetes mellitus Mother Diabetes mellitus Family history of obesity Hypertension Family history of kidney disease Other Family history of malignant neoplasm Social History Social History Smoking status: Unknown if ever smoked Second hand tobacco smoke exposure: No Smoking end date: 06/16/00 Alcohol intake: current Drinks per week: 24 Substance use: former Substance use type: marijuana Lack of Transportation: No Lack of Food: Never True Current Housing: I Have Housing Concerned About Future Housing: No Difficulty Paying Gas/Electric Bills: No Difficulty Paying for Meds: No 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on: High School Diploma/GED Difficulty w/ Childcare or Family Care: No Meds Home Medications and Allergies Home Medications Medication Instructions Recorded Confirmed Type aspirin 81 mg tablet,delayed 81 mg PO DAILY 07/12/19 05/31/22 History release (Adult Low Dose Aspirin) cholecalciferol (vitamin D3) 125 5,000 unit PO DAILY 07/12/19 05/31/22 History mcg (5,000 unit) capsule multivitamin 1 tablet PO DAILY 07/12/19 05/31/22 History niacin 500 mg capsule,extended 500 mg PO .QHS 07/12/19 05/31/22 History release turmeric root extract 500 mg 500 mg PO DAILY 07/12/19 05/31/22 History capsule losartan 100 1 tablet PO DAILY #90 tabs 01/14/22 05/31/22 Rx mg-hydrochlorothiazide 25 mg tablet diltiazem HCl 90 mg 90 mg PO BID #180 caps 02/12/22 05/31/22 Rx capsule,extended release 12 hr rosuvastatin 5 mg tablet (Crestor) 5 mg PO DAILY #90 tabs 02/20/22 05/31/22 Rx omeprazole 40 mg capsule,delayed 40 mg PO DAILY #30 caps 05/28/22 05/31/22 Rx release clindamycin HCl 300 mg capsule 300 mg PO Q6H 7 days #28 caps 05/31/22 Rx methylprednisolone 4 mg tablets in See Rx Instructions PO .COMPLEX 05/31/22 Rx a dose pack (Medrol (Timbo)) #21 ea Allergies Allergy/AdvReac Type Severity Reaction Status Date / Time No Known Allergies Allergy Verified 05/31/22 11:12 Vital Signs Vital Signs - 24 hr 05/31/22 10:47 Temperature 36.3 C L Pulse Rate 86 Respiratory Rate 16 Blood Pressure 146/95 H Pulse Oximetry 99 Oxygen Delivery Room Air Exam Narrative: Right side sub mandibular gland edema. Purulence expressed no visible stones. Results Labs 05/31/22 11:56 05/31/22 11:56 Labs: Short CBC 05/31/22 Range/Units 11:56 WBC 11.0 H (4.5-10.0) K/mm3 Hgb 13.8 L (14.0-18.0) g/dL Hct 42.1 (42.0-52.0) % Plt Count 206 (150-375) k/mm3 [facility] 05/31/22 11:56 Sodium 139 Potas
[2022-05-31 15:06] VITALS: BP 145/102; PULSE 91; RESP 18; O2SAT 99
== END 2022-05-31 15:08 | disposition home or self-care (01) ==
PROVIDERS: Emergency Provider Physician Assistant; PCP Internal Medicine
DX: K11.20 Sialoadenitis, unspecified (principal); E78.5 Hyperlipidemia, unspecified; I10 Essential (primary) hypertension; K21.9 Gastro-esophageal reflux disease without esophagitis; G47.33 Obstructive sleep apnea (adult) (pediatric); Z79.82 Long term (current) use of aspirin
CPT/HCPCS: 36415; 70491; 80053; 85025; 96361; 96365; 96375; 99284; J0131; J0295; J2930; J7030; Q9967

== ENCOUNTER 2022-09-02 08:04 | Emergency (ER) | payer OTHER, SELFPAY ==
--- NOTE | ~2022-09-02 | XR_ITS ---
XR knee LT min 4V DATE: 09/02/2022 08:33 INDICATION: Left medial burning knee pain for one month. No injury. 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 No recent fracture or dislocation or joint effusion. No periosteal reaction or bone destruction. No radiopaque intra-articular loose body or chondrocalcinosis. Probable old healed fracture of the proximal fibular shaft IMPRESSION: Moderate coronary osteoarthritis; little interval change since August 01, 2017 Reviewed, dictated and finalized at location B. IMPRESSION: Moderate coronary osteoarthritis; little interval change since 2017
[2022-09-02 08:10] VITALS: BP 134/88; PULSE 76; RESP 16; TEMP 36.3; O2SAT 99
--- NOTE | 2022-09-02 08:10 | ED.LOWEXIN ---
HPI - Extremity Injury (Lower) General Chief Complaint: Extremity Injury, Lower Stated Complaint: Left Knee Pain Time Seen by Provider: 09/02/22 08:10 Source: patient Mode of arrival: ambulatory Limitations: no limitations History of Present Illness HPI Narrative: Patient is a 62-year-old male that presents with left knee pain for a month. States the swelling has improved but there is a constant burning to the inner side of his knee. Patient has used Tylenol, creams and ice intermittently, but states he just tries to deal with the pain. Patient had injury to knee 40 years ago but no surgeries. Denies any injury to it a month ago. Still able to ambulate unassisted. Related Data Home Medications Medication Instructions Recorded Confirmed aspirin 81 mg tablet,delayed 81 mg PO DAILY 07/12/19 09/02/22 release (Adult Low Dose Aspirin) cholecalciferol (vitamin D3) 125 5,000 unit PO DAILY 07/12/19 09/02/22 mcg (5,000 unit) capsule multivitamin 1 tablet PO DAILY 07/12/19 09/02/22 niacin 500 mg capsule,extended 500 mg PO .QHS 07/12/19 09/02/22 release turmeric root extract 500 mg 500 mg PO DAILY 07/12/19 09/02/22 capsule Allergies Allergy/AdvReac Type Severity Reaction Status Date / Time No Known Allergies Allergy Verified 09/02/22 08:08 Review of Systems Review of Systems: All systems reviewed & are unremarkable except as noted in HPI and below Constitutional: Constitutional: Denies body ache(s), Denies fever(s), Denies headache(s), Denies malaise and Denies weakness Eyes: Eyes: Denies loss of vision ENT: Denies otalgia, Denies headache(s), Denies nasal discharge, Denies sinus pain and Denies sore throat Cardiovascular: Cardiovascular: Denies chest pain, Denies irregular heart rhythm and Denies dyspnea Respiratory: Respiratory: Denies dyspnea Gastrointestinal: Gastrointestinal: Denies abdominal pain, Denies melena, Denies hematochezia, Denies diarrhea, Denies nausea and Denies vomiting Musculoskeletal: Musculoskeletal: Denies back pain, Denies myalgias and Reports arthralgias (left knee) Integumentary/Breasts: Skin/Breast: Denies pruritus and Denies rash Neurologic: Denies headache(s), Denies loss of vision and Denies weakness Psychiatric: Psychiatric: Reports no additional psychiatric complaints PMFSH Past Medical History Medical History Dyslipidemia Essential hypertension GERD (gastroesophageal reflux disease) IFG (impaired fasting glucose) Obstructive sleep apnea (~10/2020) Family History Family History Grandparent Diabetes mellitus Mother Diabetes mellitus Family history of obesity Hypertension Family history of kidney disease Other Family history of malignant neoplasm Social History Social History Smoking status: Unknown if ever smoked Second hand tobacco smoke exposure: No Smoking end date: 06/16/00 Alcohol intake: current Drinks per week: 24 Substance use: former Substance use type: marijuana Lack of Transportation: No Lack of Food: Never True Current Housing: I Have Housing Concerned About Future Housing: No Difficulty Paying Gas/Electric Bills: No Difficulty Paying for Meds: No 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on: High School Diploma/GED Difficulty w/ Childcare or Family Care: No Comments At time of signature, agree with nursing past medical, surgical, social and family history. There is no relevant family history pertinent to the presenting complaint. Exam Const: General: cooperative, healthy appearing, comfortable, no acute distress and well nourished Nutritional Appearance: well nourished Orientation/consciousness: patient oriented x3 Limitations: no limitations HENMT: Head: normal to inspection, normocephalic and atraumatic Ears: external ears normal
== END 2022-09-02 09:02 | disposition home or self-care (01) ==
PROVIDERS: Emergency Provider Nurse Practitioner Family; PCP Internal Medicine
DX: M17.12 Unilateral primary osteoarthritis, left knee (principal); I10 Essential (primary) hypertension; E78.5 Hyperlipidemia, unspecified; Z79.82 Long term (current) use of aspirin
CPT/HCPCS: 73564; 99213; G0463

== ENCOUNTER 2022-10-05 08:04 | Emergency (ER) | payer OTHER, SELFPAY ==
--- NOTE | ~2022-10-05 | XR_ITS ---
EXAMINATION: XR knee LT 3V DATE: 10/05/2022 08:37 INDICATION: Left knee pain TECHNIQUE: Three views of the left knee were obtained. COMPARISON: 09/02/2022 FINDINGS: No acute fracture or osteochondral lesion. There is moderate tricompartmental osteoarthriti s. There is mild bilateral subluxation of the tibia relative to the distal femur. No joint effusion/s ynovitis. Soft tissues are unremarkable. IMPRESSION: 1. Moderate osteoarthritis without acute osseous abnormality. Reviewed, dictated and finalized at location A.
[2022-10-05 08:15] VITALS: BP 146/97; PULSE 69; RESP 16; TEMP 36.3; O2SAT 99
[2022-10-05] MEDS: HYDROcodone/acetaminophen (*CRX) 5-325 MG TABLET 1 TAB PO (10:24)
--- NOTE | 2022-10-05 10:58 | ED.LOWEXIN ---
HPI - Extremity Injury (Lower) General Chief Complaint: Extremity Injury, Lower Stated Complaint: Left knee pain Time Seen by Provider: 10/05/22 09:31 History of Present Illness HPI Narrative: Patient is a 62-year-old male who presents ER with left knee pain. He was sleeping in bed when he felt a twinge of pain and went back to sleep. When he woke up he had increased discomfort. He has pain with standing and cannot walk. No fevers or chills or sweats. No redness. No numbness or tingling. Related Data Home Medications Medication Instructions Recorded Confirmed aspirin 81 mg tablet,delayed 81 mg PO DAILY 07/12/19 09/02/22 release (Adult Low Dose Aspirin) cholecalciferol (vitamin D3) 125 5,000 unit PO DAILY 07/12/19 09/02/22 mcg (5,000 unit) capsule multivitamin 1 tablet PO DAILY 07/12/19 09/02/22 niacin 500 mg capsule,extended 500 mg PO .QHS 07/12/19 09/02/22 release turmeric root extract 500 mg 500 mg PO DAILY 07/12/19 09/02/22 capsule Allergies Allergy/AdvReac Type Severity Reaction Status Date / Time No Known Allergies Allergy Verified 10/05/22 10:04 Review of Systems Constitutional: Constitutional: Denies chills and Denies fever(s) Musculoskeletal: Musculoskeletal: Denies back pain, Reports arthralgias and Reports joint swelling (Chronic knee effusion left side) Integumentary/Breasts: Skin/Breast: Denies rash Neurologic: Denies focal weakness and Denies numbness [facility] Past Medical History Medical History Dyslipidemia Essential hypertension GERD (gastroesophageal reflux disease) IFG (impaired fasting glucose) Obstructive sleep apnea (~10/2020) Family History Family History Grandparent Diabetes mellitus Mother Diabetes mellitus Family history of obesity Hypertension Family history of kidney disease Other Family history of malignant neoplasm Social History Social History Smoking status: Unknown if ever smoked Second hand tobacco smoke exposure: No Smoking end date: 06/16/00 Alcohol intake: current Drinks per week: 24 Substance use: former Substance use type: marijuana Lack of Transportation: No Lack of Food: Never True Current Housing: I Have Housing Concerned About Future Housing: No Difficulty Paying Gas/Electric Bills: No Difficulty Paying for Meds: No 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on: High School Diploma/GED Difficulty w/ Childcare or Family Care: No Exam Narrative: GENERAL: Well-appearing, well-nourished, and in no acute distress. HEAD: Normocephalic, atraumatic. ENT: Mucous membranes moist. CHEST: Clear to auscultation. No respiratory distress. HEART: Regular rate and rhythm. Normal peripheral pulses. EXTREMITIES: Normal range of motion. No edema. No tenderness across the left knee anterior joint line or patella. Mild left knee effusion noted. SKIN: Warm, dry, no rash. NEURO: Alert and oriented x3. PSYCH: Normal mood and affect. Course Course Emergency Course: Normal range of motion and normal. The outside which she did. Baring warmth or erythema. Discussed conservative therapy and doing weight as tolerated. Discussed need for follow-up with PCP and orthopedic surgery as he may require physical therapy if he has an improvement in his case, I may also do a steroid injection due to arthritis in the joint. Vital Signs Vital signs: Vital Signs Temperature 97.4 F L 10/05/22 08:15 Pulse Rate 69 10/05/22 08:15 Respiratory Rate 16 10/05/22 08:15 Blood Pressure 146/97 H 10/05/22 08:15 Pulse Oximetry 99 10/05/22 08:15 Temperature 97.4 F L 10/05/22 08:15 Pulse Rate 69 10/05/22 08:15 Respiratory Rate 16 10/05/22 08:15 Blood Pressure 146/97 H 10/05/22 08:15 Pulse Oximetry 99 10/05/22 08:15 MDM - Extremity
== END 2022-10-05 11:23 | disposition home or self-care (01) ==
PROVIDERS: Emergency Provider Emergency Medicine; PCP Internal Medicine
DX: M25.562 Pain in left knee (principal); M17.12 Unilateral primary osteoarthritis, left knee; E78.5 Hyperlipidemia, unspecified; I10 Essential (primary) hypertension; K21.9 Gastro-esophageal reflux disease without esophagitis; G47.33 Obstructive sleep apnea (adult) (pediatric); Z79.82 Long term (current) use of aspirin
CPT/HCPCS: 73562; 99283; A9270

== ENCOUNTER 2022-10-21 06:57 | Outpatient (CLI) | payer OTHER, SELFPAY ==
[2022-10-21 07:26] LABS: Alanine Aminotransferase 41 U/L (6-50); Albumin Level 4.4 g/dL (3.5-5.1); Alkaline Phosphatase 57 U/L (38-126); Anion Gap 7 mmol/L (8-16); Aspartate Amino Transferase 38 U/L (17-59); Bilirubin,Total 0.6 mg/dL (0.2-1.3); Blood Urea Nitrogen 19 mg/dL (9-20); Calcium 9.2 mg/dL (8.4-10.2); Carbon Dioxide 27 mmol/L (22-30); Chloride 104 mmol/L (98-107); Cholesterol 183 mg/dL (0-200); Estimated Glomerular Filt Rate > 60; Glucose 110 mg/dL (65-110); HDL Direct 42 mg/dL; Potassium 3.9 mmol/L (3.4-5.0); Sodium 138 mmol/L (137-145); Triglycerides 166 mg/dL (<150)
[2022-10-21 07:37] LABS: LDL Cholesterol Direct 107 mg/dL
[2022-10-21 07:56] LABS: Hemoglobin A1C 6.2 % (<5.7)
== END 2022-10-21 06:58 | disposition home or self-care (01) ==
LOC: ANHLAB 06:57
PROVIDERS: PCP Family Medicine; Visit Provider Family Medicine
DX: E11.9 Type 2 diabetes mellitus without complications (principal); I10 Essential (primary) hypertension; E78.5 Hyperlipidemia, unspecified
CPT/HCPCS: 36415; 80053; 80061; 83036

== ENCOUNTER 2023-06-07 08:31 | Outpatient (CLI) | payer OTHER, SELFPAY ==
[2023-06-07 09:10] LABS: Hematocrit 43.3 % (42.0-52.0); Hemoglobin 13.8 g/dL (14.0-18.0)
[2023-06-11 06:34] LABS: LH 2.1 mIU/mL (1.6-15.2); Prolactin 7.6 ng/mL (***)
[2023-06-13 00:22] LABS: Estradiol, Ultrasensitive 24 pg/mL (< OR = 29)
[2023-06-13 14:33] LABS: Testosterone Free 75.8 pg/mL (35.0-155.0); Testosterone Total 317 ng/dL (250-1100)
== END 2023-06-07 08:32 | disposition home or self-care (01) ==
LOC: ANHLAB 08:33
PROVIDERS: PCP Family Medicine; Visit Provider Urology
DX: E29.1 Testicular hypofunction (principal)
CPT/HCPCS: 36415; 82670; 83001; 83002; 84146; 84402; 84403; 85014; 85018

== ENCOUNTER 2023-07-12 09:16 | Outpatient (CLI) | payer OTHER, SELFPAY ==
[2023-07-12 11:13] LABS: Hemoglobin A1C 6.6 % (<5.7)
[2023-07-12 11:19] LABS: Alanine Aminotransferase 30 U/L (6-50); Albumin Level 4.2 g/dL (3.5-5.1); Alkaline Phosphatase 63 U/L (38-126); Anion Gap 9 mmol/L (8-16); Aspartate Amino Transferase 37 U/L (17-59); Bilirubin,Total 0.6 mg/dL (0.2-1.3); Blood Urea Nitrogen 15 mg/dL (9-20); Calcium 9.2 mg/dL (8.4-10.2); Carbon Dioxide 27 mmol/L (22-30); Chloride 103 mmol/L (98-107); Estimated Glomerular Filt Rate > 60; Glucose 115 mg/dL (65-110); Potassium 3.9 mmol/L (3.4-5.0); Sodium 139 mmol/L (137-145)
[2023-07-12 12:01] LABS: Creatinine Urine 249.5 mg/dL
[2023-07-12 12:04] LABS: MALB Creatinine Ratio 2.6 mg/g (0-30); Microalbumin Urine Random 6.5 mg/L (0-16.7)
== END 2023-07-12 09:17 | disposition home or self-care (01) ==
LOC: ANHLAB 09:17
PROVIDERS: PCP Family Medicine; Visit Provider Nurse Practitioner Family
DX: E11.9 Type 2 diabetes mellitus without complications (principal)
CPT/HCPCS: 36415; 80053; 82043; 83036

== ENCOUNTER 2023-07-14 08:44 | Outpatient (CLI) | payer OTHER, SELFPAY ==
[2023-07-14 09:26] LABS: Basophils Absolute Auto 0.1 K/mm3 (0.0-0.1); Eosinophils Absolute Auto 0.1 K/mm3 (0-0.3); Eosinophils Percent Auto 1.2 % (0-4.4); Hematocrit 43.9 % (42.0-52.0); Immature Granulocyte Absolute 0.02 K/mm3 (0.00-0.031); Immature Granulocyte Percent A 0.3 % (0-0.5); Lymphocytes Absolute Auto 2.21 K/mm3 (0.9-3.2); Lymphocytes Percent Auto 38.1 % (18.3-44.2); Mean Corpuscular HGB Conc 31.9 g/dl (32-36); Mean Corpuscular Hemoglobin 28.8 pg (26-34); Mean Corpuscular Volume 90.3 fl (80-100); Mean Platelet Volume 11.2 fl (7.4-10.4); Monocytes Absolute Auto 0.9 K/mm3 (0.1-0.6); Monocytes Percent Auto 15.3 % (2.6-8.5); Neutrophils Absolute Auto 2.6 K/mm3 (1.3-6.7); Neutrophils Percent Auto 44.1 % (45.5-73.1); Platelet Count Result 190 k/mm3 (150-375); Red Blood Count 4.86 M/mm3 (4.6-6.20); Red Cell Distribution Width 13.5 % (11.5-14.5); White Blood Count 5.8 K/mm3 (4.5-10.0)
[2023-07-14 09:38] LABS: Alanine Aminotransferase 47 U/L (6-50); Albumin Level 4.4 g/dL (3.5-5.1); Alkaline Phosphatase 62 U/L (38-126); Anion Gap 9 mmol/L (8-16); Aspartate Amino Transferase 43 U/L (17-59); Bilirubin,Total 0.6 mg/dL (0.2-1.3); Blood Urea Nitrogen 14 mg/dL (9-20); Calcium 9.4 mg/dL (8.4-10.2); Carbon Dioxide 26 mmol/L (22-30); Chloride 102 mmol/L (98-107); Cholesterol 187 mg/dL (0-200); Estimated Glomerular Filt Rate > 60; Glucose 108 mg/dL (65-110); HDL Direct 46 mg/dL; Sodium 137 mmol/L (137-145); Triglycerides 152 mg/dL (<150)
[2023-07-14 09:39] LABS: D Dimer < 0.27 ug/mL (<0.48)
[2023-07-14 09:49] LABS: LDL Cholesterol Direct 107 mg/dL
[2023-07-14 10:39] LABS: Hemoglobin A1C 6.7 % (<5.7)
== END 2023-07-14 08:45 | disposition home or self-care (01) ==
PROVIDERS: PCP Family Medicine; Visit Provider Nurse Practitioner Family
DX: R07.9 Chest pain, unspecified (principal); E78.5 Hyperlipidemia, unspecified; Z13.0 Encounter for screening for diseases of the blood and blood-forming organs and certain disorders involving the immune mechanism; E11.9 Type 2 diabetes mellitus without complications; I10 Essential (primary) hypertension
CPT/HCPCS: 36415; 80053; 80061; 83036; 85025; 85380

== ENCOUNTER 2023-10-11 08:03 | Outpatient (CLI) | payer OTHER, SELFPAY ==
--- NOTE | 2023-10-11 08:37 | ECG_ITS ---
SEE SCANNED COPY FOR CONFIRMED REPORT MTDD
[2023-10-11 08:47] LABS: Appearance Urine Clear (Clear); Bilirubin Urine Negative (Negative); Blood Urine Negative (Negative); Color Urine Yellow (Yellow); Glucose Urine UA Negative (Negative); Ketones Urine Trace mg/dL (Negative); Leukocyte Esterase Ur Negative LEU/UL (Negative); Nitrate Urine Negative (Negative); Protein Urine Negative (Negative); Specific Grav Ur 1.022 (1.001-1.035)
[2023-10-11 08:59] LABS: Add Urine Microscopic? NO
[2023-10-11 09:11] LABS: Basophils Percent Auto 0.8 % (0.2-1.2); Eosinophils Percent Auto 0.6 % (0-4.4); Hemoglobin 14.3 g/dL (14.0-18.0); Immature Granulocyte Absolute 0.03 K/mm3 (0.00-0.031); Immature Granulocyte Percent A 0.6 % (0-0.5); Lymphocytes Absolute Auto 1.96 K/mm3 (0.9-3.2); Lymphocytes Percent Auto 39.1 % (18.3-44.2); Mean Corpuscular HGB Conc 32.5 g/dl (32-36); Mean Corpuscular Hemoglobin 29.4 pg (26-34); Mean Corpuscular Volume 90.5 fl (80-100); Mean Platelet Volume 11.4 fl (7.4-10.4); Monocytes Absolute Auto 0.7 K/mm3 (0.1-0.6); Monocytes Percent Auto 14.4 % (2.6-8.5); Neutrophils Absolute Auto 2.2 K/mm3 (1.3-6.7); Neutrophils Percent Auto 44.5 % (45.5-73.1); Platelet Count Result 178 k/mm3 (150-375); Red Blood Count 4.86 M/mm3 (4.6-6.20); Red Cell Distribution Width 13.3 % (11.5-14.5)
[2023-10-11 09:24] LABS: Anion Gap 9 mmol/L (4-12); Blood Urea Nitrogen 16 mg/dL (9-20); Calcium 9.3 mg/dL (8.4-10.2); Carbon Dioxide 25 mmol/L (22-30); Chloride 106 mmol/L (98-107); Estimated Glomerular Filt Rate > 60; Glucose 108 mg/dL (65-110); Sodium 140 mmol/L (137-145)
[2023-10-11 10:03] LABS: Hemoglobin A1C 6.2 % (<5.7)
== END 2023-10-11 08:04 | disposition home or self-care (01) ==
LOC: ANHLAB 08:06
PROVIDERS: PCP Family Medicine; Visit Provider Nurse Practitioner Family
DX: R53.83 Other fatigue (principal); E11.9 Type 2 diabetes mellitus without complications; I10 Essential (primary) hypertension; I49.1 Atrial premature depolarization; R00.2 Palpitations
CPT/HCPCS: 36415; 80048; 81003; 83036; 85025; 93005

== ENCOUNTER 2023-10-31 09:59 | Outpatient (CLI) | payer OTHER, SELFPAY ==
[2023-10-31 10:45] LABS: Hemoglobin 14.7 g/dL (14.0-18.0)
[2023-11-02 19:14] LABS: Testosterone Total 202 ng/dL (250-1100)
[2023-11-07 22:00] LABS: Estriol <0.10 ng/mL
== END 2023-10-31 10:00 | disposition home or self-care (01) ==
LOC: ANHLAB 10:00
PROVIDERS: PCP Family Medicine; Visit Provider Urology
DX: E29.1 Testicular hypofunction (principal)
CPT/HCPCS: 36415; 82677; 84403; 85014; 85018

== ENCOUNTER 2023-12-12 07:57 | Outpatient (CLI) | payer OTHER, SELFPAY ==
[2023-12-12 09:18] LABS: Basophils Percent Auto 0.7 % (0.2-1.2); Eosinophils Absolute Auto 0.1 K/mm3 (0-0.3); Eosinophils Percent Auto 0.9 % (0-4.4); Hematocrit 40.8 % (42.0-52.0); Hemoglobin 13.5 g/dL (14.0-18.0); Immature Granulocyte Absolute 0.02 K/mm3 (0.00-0.031); Immature Granulocyte Percent A 0.3 % (0-0.5); Lymphocytes Absolute Auto 2.16 K/mm3 (0.9-3.2); Lymphocytes Percent Auto 37.3 % (18.3-44.2); Mean Corpuscular HGB Conc 33.1 g/dl (32-36); Mean Corpuscular Hemoglobin 29.8 pg (26-34); Mean Corpuscular Volume 90.1 fl (80-100); Mean Platelet Volume 10.7 fl (7.4-10.4); Monocytes Absolute Auto 0.7 K/mm3 (0.1-0.6); Monocytes Percent Auto 12.8 % (2.6-8.5); Neutrophils Absolute Auto 2.8 K/mm3 (1.3-6.7); Platelet Count Result 164 k/mm3 (150-375); Red Blood Count 4.53 M/mm3 (4.6-6.20); Red Cell Distribution Width 13.3 % (11.5-14.5); White Blood Count 5.8 K/mm3 (4.5-10.0)
[2023-12-12 09:23] LABS: Appearance Urine Clear (Clear); Bacteria Urine None Seen /hpf; Bilirubin Urine Negative (Negative); Blood Urine Negative (Negative); Color Urine Yellow (Yellow); Glucose Urine UA Negative (Negative); Ketones Urine Trace mg/dL (Negative); Leukocyte Esterase Ur Negative LEU/UL (Negative); Nitrate Urine Negative (Negative); Non Pathogenic Casts 0-2; Protein Urine Trace mg/dL (Negative); Specific Grav Ur 1.029 (1.001-1.035); Squamous Epithelial Cell Urine None Seen /hpf (Few); WBC Urine 0-5 /hpf (0-3)
[2023-12-12 09:30] LABS: INR 1.1; Prothrombin Time 14.3 Seconds (11.1-14.7)
[2023-12-12 09:31] LABS: Partial Thromboplastin Time 28.5 Seconds (22.3-36.8)
[2023-12-12 09:33] LABS: Albumin Level 4.3 g/dL (3.5-5.1); Anion Gap 7 mmol/L (4-12); Blood Urea Nitrogen 19 mg/dL (9-20); Calcium 8.7 mg/dL (8.4-10.2); Carbon Dioxide 25 mmol/L (22-30); Chloride 106 mmol/L (98-107); Estimated Glomerular Filt Rate > 60; Glucose 104 mg/dL (65-110); Potassium 3.7 mmol/L (3.4-5.0); Sodium 138 mmol/L (137-145)
[2023-12-12 09:37] LABS: Add Urine Microscopic? YES
[2023-12-12 09:39] LABS: Urine Cotinine NEGATIVE
[2023-12-12 10:29] LABS: MRSA (PCR) NOT DETECTED (NOT DETECTE)
== END 2023-12-12 07:58 | disposition home or self-care (01) ==
PROVIDERS: PCP Family Medicine; Visit Provider Orthopaedic Surgery
DX: M17.12 Unilateral primary osteoarthritis, left knee (principal); Z01.818 Encounter for other preprocedural examination
CPT/HCPCS: 80048; 80307; 81001; 82040; 85025; 85610; 85730; 87641

== ENCOUNTER 2023-12-30 02:45 | Day surgery (SDC) | payer OTHER, SELFPAY ==
[2023-12-12 08:08] VITALS: BMI 32.8
--- NOTE | 2023-12-12 08:46 | PC.NURSE ---
Report to the Outpatient Waiting Room, entrance under the green pavilion located off [facility], at time __1000 AM on date __12/30/23 . Planned Procedure Time: _1200 NOON . Time changes happen often and if your time is changed the preop area will call you the afternoon before. - You and your visitor will be asked to self-screen and do not enter if you have any COVID symptoms. - A mask is optional within the hospital at this time. Patients may have clear liquids (water, carbonated beverages, clear teas, apple juice) until 3 hours prior to surgery ( 9:00 AM)with a maximum of 20 ounces. - No food from midnight until time of surgery - Infants may have breast milk until 4 hours before surgery, formula 6 hours prior to surgery. - Children will be allowed to drink immediately following surgery. If applicable, please bring a bottle or sippy cup to assist with drinking. Juice, water, soda, and popsicles are readily available. For infants on formula, please bring formula the day of surgery. Pacifiers are allowed. Take the following medications with a SIP of water the morning of surgery: ____DILTIAZEM, DO NOT STOP ANY OF YOUR OTHER PRESCRIPTION MEDICATIONS PRIOR TO SURGERY ?EXCEPT THE FOLLOWING Medications to discontinue per physician ___HOLD ALL VITAMINS AND SUPPLEMENTS 3 DAYS PRE OP .LAST DOSE 12/26/23___HOLD ASPIRIN AND ALEVE PER DR CAMPBELL. MAY TAKE TYLENOL IF NEEDED FOR PAIN TOTAL JOINT CLASS 12/17/23 AT 10 AM Please no make-up, nail maltese, hairspray, perfume, deodorant, or body powder the day of surgery. No jewelry (including any body piercings) or valuables the day of surgery, leave them at home. Please take a shower or bath the night before, or the morning of, surgery with an antibacterial soap. Wear comfortable, loose fitting clothing. Children are encouraged to wear pajamas. - Jewelry must be removed prior to entering the operating room. Rings and piercings that are not removed may be cut off. - The hospital will not accept responsibility for valuables. - Please leave all valuables, including medications, at home the day of surgery. If you are going home after surgery, a licensed catering driver must drive you home. - NO public transportation without another adult if you receive anesthesia. - We recommend that an adult stay with you for 24 hours following discharge. - We also recommend that you do not drive, make important decision, drink alcoholic beverages, or take any drugs that were not prescribed by your health care provider for at least 24 hours after your discharge time. Follow any additional instructions given to you from your surgeon. If you or anyone in your household have experienced Covid symptoms in the past week, please notify your surgeon or the nurse liaison at the phone number below for possible testing. VERBAL AND WRITTEN instructions given to ___PATIENT and asked if any additional questions and then verbalized understanding. Patient advised to call surgeon office or pre surgery nurse liaison [phone] if any additional questions.
[2023-12-12 09:02] VITALS: BP 138/94; PULSE 67; RESP 18; TEMP 36.9; O2SAT 98
[2023-12-30] VITALS (15 sets, daily range): BP systolic 92–123; BP diastolic 66–84; PULSE 66–84; RESP 12–20; TEMP 36.2–36.7; O2SAT 94–99
--- NOTE | ~2023-12-30 | XR_ITS ---
EXAMINATION: [id number] DATE: 12/30/2023 14:48 INDICATION: Postoperative evaluation following left total knee arthroplasty. TECHNIQUE: Anteroposterior and lateral views of the left knee were obtained. COMPARISON: None. FINDINGS: Left total knee arthroplasty without patellar resurfacing appears well seated and in near anatomic al ignment. No fractures identified. Anterior skin dedra and expected postoperative subcutaneous, int ramedullary and intra-articular gas. IMPRESSION: 1. Left total knee arthroplasty, negative for postoperative purposes. Reviewed, dictated and finalized at location A.
[2023-12-30] MEDS: LACTATED RINGERS 1,000 ML 30 ML IV CONT ×2 (10:34→14:29)
[2023-12-30] MEDS: ACETAMINOPHEN 500 MG TABLET 1000 MG PO (11:07)
[2023-12-30] MEDS: TRANEXAMIC ACID 1,000MG/ISO100 1,000 MG/100 ML BAG 200 MG IVPB (11:08)
--- NOTE | 2023-12-30 11:21 | WPDANESEPPF ---
Anes - Initial Pre Proc Eval Procedure: Operation Date: 12/30/23 12:00 Proposed Procedures p Left Total Knee Arthroplasty - Charlie Staton MD Date/Time: 12/30/23 11:21 Surgeon: Charlie Staton MD Pre Op Diagnosis: left knee OA Patient Data Age: 63 Gender: M Height: 1.83 m Weight: 109 kg Last Vital Signs Temp 36.7 C 12/30/23 10:07 Pulse 70 12/30/23 10:07 Resp 18 12/30/23 10:07 BP 123/84 12/30/23 10:07 Pulse Ox 99 12/30/23 10:07 O2 Del Method Room Air 12/30/23 10:07 Allergies Allergy/AdvReac Type Severity Reaction Status Date / Time No Known Allergies Allergy Verified 12/30/23 10:09 Home Medications Medication Instructions Recorded Confirmed Type aspirin 81 mg tablet,delayed 81 mg PO DAILY 07/12/19 12/30/23 History release (Adult Low Dose Aspirin) cholecalciferol (vitamin D3) 125 5,000 unit PO DAILY 07/12/19 12/30/23 History mcg (5,000 unit) capsule multivitamin 1 tablet PO DAILY 07/12/19 12/30/23 History niacin 500 mg capsule,extended 500 mg PO .QHS 07/12/19 12/30/23 History release turmeric root extract 500 mg 500 mg PO DAILY 07/12/19 12/30/23 History capsule sildenafil 50 mg tablet (Viagra) 50 mg PO DAILY PRN sexual activity 10/28/22 12/30/23 Rx #10 tabs lidocaine 5 % topical patch 1 patch topical DAILY #15 ea 11/25/22 12/30/23 Rx losartan 100 1 tablet PO DAILY #90 tabs 07/14/23 12/30/23 Rx mg-hydrochlorothiazide 25 mg tablet diltiazem HCl 90 mg 90 mg PO BID #180 caps 08/11/23 12/30/23 Rx capsule,extended release 12 hr testosterone 50 mg/5 gram (1 %) 50 mg topical DAILY 10/20/23 12/30/23 History transdermal gel (Testim) rosuvastatin 5 mg tablet (Crestor) 5 mg PO DAILY #90 tabs 11/24/23 12/30/23 Rx acetaminophen 650 mg 1,300 mg PO Q12H PRN Pain 12/12/23 12/30/23 History tablet,extended release (Tylenol Arthritis Pain) coQ10 (ubiquinol) 100 mg capsule 100 mg PO HS 12/12/23 12/30/23 History naproxen sodium 220 mg capsule 440 mg PO Q12H PRN Pain 12/12/23 12/30/23 History (Aleve) omeprazole 40 mg capsule,delayed 20 mg PO DAILY 12/12/23 12/30/23 History release testosterone undecanoate 237 mg 237 mg PO DAILY 12/12/23 12/30/23 History capsule (Jatenzo) chlorhexidine gluconate 4 % 1 applic topical ONCE #237 mL 12/17/23 Rx topical liquid (Hibiclens) Patient hx anesthesia problems: none Family hx anesthesia problems: none Results Review: All pre-operative results and documents have been reviewed as part of the pre-operative evaluation. [facility] Past Medical History Medical History Bilateral shoulder region arthritis Degenerative arthritis of left knee Dyslipidemia Essential hypertension GERD (gastroesophageal reflux disease) IFG (impaired fasting glucose) Left knee injury Obstructive sleep apnea (~10/2020) Other fatigue Shoulder impingement syndrome Family History Family History Grandparent Diabetes mellitus Mother Diabetes mellitus Family history of obesity Hypertension Family history of kidney disease Other Family history of malignant neoplasm Social History Social History Smoking status: Former smoker Second hand tobacco smoke exposure: No Smoking end date: 06/16/00 Additional smoking assessment comments: DENIES ANY FORM OF TOBACCO USE Alcohol intake: current Drinks per week: 10 Substance use: former Substance use type: marijuana Last use: 15 YRS AGO Lack of Transportation: No Lack of Food: Never True Current Housing: I Have Housing Concerned About Future Housing: No Difficulty Paying Gas/Electric Bills: No Difficulty Paying for Meds: No 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on: High School Diploma/GED Difficulty w/ Childcare or Family Care: No Living arrangements: with family 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
[2023-12-30] MEDS: ceFAZolin 2 GM/D5W 50 ML 2 GM/50 ML BAG IVPB ×2 (12:00→20:11)
--- NOTE | 2023-12-30 12:08 | WPDHPUPDATE1 ---
History and Physical Update Update Date/Time: 12/30/23 12:08 History and Physical has been reviewed, including an updated exam of the patient. There are NO changes in the patient's condition. Risks, benefits, and alternatives have been discussed and questions answered. Patient agrees to proceed with procedure.
--- NOTE | 2023-12-30 12:08 | WPDANESPNB ---
Anes - Peripheral Nerve Block Date/Time: 12/30/23 12:08 I have discussed with the patient/family/POA the placement of a peripheral nerve block for post-operative pain management, including associated risks, benefits, complications, and side effects. Alternative methods of post-operative analgesia were detailed. Questions were solicited and answers provided to the satisfaction of the patient/family/POA. Time-Out: A pre-procedural Time-Out was completed immediately before starting the procedure and confirmed: Patient Identification, Site, Procedure, Patient Position and the Availability of Requisite Equipment. Clinical Indications: Acute post-operative pain management requested by the operative surgeon. Nerve Block Insertion Note Anes-nerve block: adductor canal left Patient position: supine Skin prep: chlorhexidine Needle: 22 gauge, stimulating, insulated echogenic needle. Needle length: 80 mm Technique: ultrasound Injectate: other (Bupiv 0.5%, 15 mls. ) Observations: tolerated well Complications: none Procedure start time:: 115 Procedure end time:: 1156
[2023-12-30] MEDS: SODIUM CHLORIDE 0.9% IV 37.7 ML, MORPHINE SULFATE INJ (*CRX) 2 MG, ROPivacaine HCL 1% 2... INFILTRATE (12:29)
[2023-12-30] MEDS: TRANEXAMIC ACID 1,000 MG/10 ML AMPUL 1000 MG IV PUSH (13:43)
--- NOTE | 2023-12-30 14:13 | W.PM.PROC2 ---
Procedure Note - Detailed Date of Procedure 12/30/23 Pre-op Diagnosis left knee OA Post-op Diagnosis Same Procedure Performed L TKA Surgeon Charlie Staton MD Anesthesia General Description of Procedure THE LEFT KNEE WAS PREPPED AND DRAPED IN THE STERILE FASHION. THE KNEE WAS IN RECURVATUM OF ABOUT 10 DEG.. A MIDLINE SKIN INCISION WAS MADE. A MEDIAL PARAPATELLAR ARTHROTOMY WAS MADE. THE PATELLA WAS EVERTED. THERE WAS TRICOMPARTMENT DJD. THERE WAS MINIMAL PATELLA DJD. AN INTRAMEDULLARY TRAM WAS PLACED IN THE FEMUR. A DISTAL FEMORAL CUT WAS MADE IN 5 DEGREES OF VALGUS REMOVING APPROXIMATELY 9 MM OF BONE FROM THE DISTAL FEMUR. THE FEMUR WAS SIZED TO 65. A 65 FEMORAL CUTTING BLOCK WAS PLACED IN 3 DEGREES OF EXTERNAL ROTATION AND IN ALIGNMENT WITH RIGO'S LINE AND THE TRANSEPICONDYLAR AXIS. ANTERIOR POSTERIOR AND CHAMFER CUTS WERE MADE. THE CUTS WERE EXCELLENT. NEXT AN INTRAMEDULLARY CUTTING GUIDE WAS PLACED IN THE TIBIA. A TRANS TIBIAL CUT WAS MADE ALONG THE LONG AXIS OF THE TIBIA. APPROXIMATELY 10 MM OF BONE WAS REMOVED FROM THE HIGH SIDE OF THE TIBIA. THE TIBIA WAS THEN PLANED TO A SMOOTH SURFACE. POSTERIOR FEMORAL OSTEOPHYTES WERE REMOVED FROM THE FEMORAL CONDYLES. A 75 TIBIAL TRIAL WAS PLACED IN ALIGNMENT WITH THE 1/3 MEDIAL ASPECT OF THE TIBIAL TUBERCLE. THEN A 65 FEMORAL TRIAL COMPONENT WAS PLACED. BOTH HAD EXCELLENT FITS. EVENTUALLY A 12 MM POLYETHYLENE TRIAL COMPONENT WAS PLACED. THE KNEE WAS TAKEN THROUGH A RANGE OF MOTION. THE KNEE CAME OUT TO FULL EXTENSION. THERE WAS NO ABNORMAL TILT TO THE PATELLA. THERE WAS GOOD A/P AND VARUS/VALGUS STABILITY. THERE WAS NO EXCESSIVE ROLL BACK WITH FLEXION. THE TRIAL COMPONENTS WERE REMOVED. THEN A 65 FEMORAL COMPONENT AND 75 TIBIAL COMPONENT WITH A 12 POLYETHYLENE COMPONENT WERE CEMENTED INTO PLACE. ONCE THE CEMENT WAS HARD THE KNEE WAS TAKEN THROUGH A ROM AGAIN AND FOUND TO BE STABLE WITH NO PATELLA TILT NO EXCESSIVE ROLL BACK WITH FLEXION AND GOOD STABILITY WITH COMPLETE AND FULL EXTENSION. THE KNEE WAS IRRIGATED WITH STERILE BETADINE AND WATER FOR ABOUT 3 MINUTES. THE BLEEDERS WERE CAUTERIZED. THE ARTHROTOMY WAS REPAIRED WITH NUMBER 1 VICRYL AND No 2 QUIL. THE SUB CUTANEOUS LAYER WITH 2-0 VICRYL AND THE SKIN WITH ESTEBAN. THE WOUND WAS WASHED AND A STERILE DRESSING WAS APPLIED. PATIENT WAS EXTUBATED. Estimated Blood Loss -100 Pathology None sent Complications No immediate complications Condition Stable Disposition PACU
--- NOTE | 2023-12-30 16:38 | ADMGEN ---
This patient, Lukas Monzon, was admitted to Medical Room 247-. Patient/family oriented to hospital policies and general routines including ID bracelet, bed and alarms, visiting hours, pain management, procedures, bathroom and other care routines, personal items, smoking policy, room service/diet, and visiting hours. Information on how to activate the Rapid Response Team has been discussed. Patient/Family are encouraged to report perceived risks to care and to ask questions if they do not understand what they are told or what they should do.
[2023-12-30] MEDS: KETOROLAC 15 MG/ML VIAL (*BKC) IV PUSH ×2 (17:28→23:46)
[2023-12-30] MEDS: SENNA/DOCUSATE SODIUM TABLET 2 TAB PO (17:35)
[2023-12-30] MEDS: ASPIRIN 325 MG ENTERIC TABLET PO (20:12)
[2023-12-30] MEDS: ROSUVASTATIN 5 MG TABLET PO (20:12)
[2023-12-30] MEDS: NIACIN SA 500 MG TABLET PO (20:13)
[2023-12-30] MEDS: oxyCODONE/ACETAMINOPHEN (*CRX) 5-325 MG TABLET 1 TABLET PO (21:11)
[2023-12-31 00:03] VITALS: BP 132/81; PULSE 82; RESP 20; TEMP 36.5; O2SAT 98
[2023-12-31] MEDS: ceFAZolin 2 GM/D5W 50 ML 2 GM/50 ML BAG IVPB (03:54)
[2023-12-31 04:02] VITALS: BP 115/76; PULSE 80; RESP 20; TEMP 36.5; O2SAT 97
[2023-12-31 05:14] LABS: Basophils Percent Auto 0.2 % (0.2-1.2); Hematocrit 36.4 % (42.0-52.0); Hemoglobin 11.9 g/dL (14.0-18.0); Immature Granulocyte Absolute 0.08 K/mm3 (0.00-0.031); Immature Granulocyte Percent A 0.6 % (0-0.5); Lymphocytes Absolute Auto 1.07 K/mm3 (0.9-3.2); Lymphocytes Percent Auto 8.5 % (18.3-44.2); Mean Corpuscular HGB Conc 32.7 g/dl (32-36); Mean Corpuscular Hemoglobin 29.9 pg (26-34); Mean Corpuscular Volume 91.5 fl (80-100); Mean Platelet Volume 11.6 fl (7.4-10.4); Monocytes Absolute Auto 1.7 K/mm3 (0.1-0.6); Monocytes Percent Auto 13.1 % (2.6-8.5); Neutrophils Absolute Auto 9.8 K/mm3 (1.3-6.7); Neutrophils Percent Auto 77.6 % (45.5-73.1); Platelet Count Result 160 k/mm3 (150-375); Red Blood Count 3.98 M/mm3 (4.6-6.20); Red Cell Distribution Width 13.6 % (11.5-14.5); White Blood Count 12.6 K/mm3 (4.5-10.0)
[2023-12-31 05:26] LABS: Anion Gap 9 mmol/L (4-12); Blood Urea Nitrogen 22 mg/dL (9-20); Calcium 8.6 mg/dL (8.4-10.2); Carbon Dioxide 27 mmol/L (22-30); Chloride 100 mmol/L (98-107); Estimated CRCL calculation 73 ml/min; Estimated Glomerular Filt Rate > 60; Glucose 116 mg/dL (65-110); Potassium 4.2 mmol/L (3.4-5.0); Sodium 136 mmol/L (137-145)
[2023-12-31] MEDS: KETOROLAC 15 MG/ML VIAL (*BKC) IV PUSH (06:14)
[2023-12-31 07:45] VITALS: BP 130/83; PULSE 79; RESP 16; TEMP 36.2; O2SAT 100
[2023-12-31] MEDS: oxyCODONE/ACETAMINOPHEN (*CRX) 10-325 MG TABLET 1 TAB PO (07:55)
[2023-12-31 08:29] VITALS: O2SAT 95
[2023-12-31] MEDS: CHOLECALCIFEROL 5,000 UNITS TABLET 5000 UNITS PO (08:34)
[2023-12-31] MEDS: SENNA/DOCUSATE SODIUM TABLET 2 TAB PO (08:34)
[2023-12-31] MEDS: ASPIRIN 325 MG ENTERIC TABLET PO (08:34)
[2023-12-31] MEDS: hydroCHLOROthiazide 25 MG TABLET PO (08:34)
[2023-12-31] MEDS: LOSARTAN POTASSIUM 100 MG TABLET PO (08:35)
[2023-12-31] MEDS: polyethylene glycoL 3350 17 GM POWD.PACK PO (08:37)
[2023-12-31] MEDS: PANTOPRAZOLE 40 MG TABLET PO (08:37)
[2023-12-31 11:49] VITALS: BP 116/80; PULSE 72; RESP 16; TEMP 36.6; O2SAT 96
[2023-12-31] MEDS: CEPHALEXIN 500 MG CAPSULE PO (13:05)
[2023-12-31] MEDS: KETOROLAC 30 MG/ML VIAL (*BKC) 15 MG IM (13:32)
--- NOTE | 2023-12-31 14:19 | WPDPN ---
Progress Note: A&P Assessment and Plan (1) Degenerative arthritis of left knee: Qualifiers: Osteoarthritis type: primary Qualified Code(s): M17.12 - Unilateral primary osteoarthritis, left knee Code(s): M17.12 - Unilateral primary osteoarthritis, left knee Status: Acute Assessment and Plan: POD 1 DOING WELL. OK TO DC HOME F/U IN 3 WEEKS. Subjective Date/time seen: 12/31/23 14:19 Interval history: pod 1 DOING WELL. PAIN WELL CONTROLLED. GOOD PROGRESS WITH PT Exam Extrem: Other: VSS AFEBRILE DRESSING DRY NV INTACT NEG HOMANS SIGN CALF AND THIGH SOFT NON TENDER Objective Data Vital Signs Vital Signs: Vital Signs - 24 hr 12/30/23 14:29 12/30/23 14:45 12/30/23 14:32 Temperature 36.2 C L Pulse Rate 70 71 72 Respiratory Rate 18 14 17 Blood Pressure 103/70 106/73 Pulse Oximetry 96 97 95 Oxygen Delivery Simple Face Mask Simple Face Mask Simple Face Mask Oxygen Flow Rate 10 10 10 12/30/23 15:00 12/30/23 15:15 12/30/23 15:30 Temperature Pulse Rate 70 70 68 Respiratory Rate 14 14 14 Blood Pressure 114/78 101/75 105/73 Pulse Oximetry 98 94 95 Oxygen Delivery Simple Face Mask Nasal Cannula Room Air Oxygen Flow Rate 10 2 12/30/23 15:45 12/30/23 16:00 12/30/23 16:15 Temperature Pulse Rate 70 69 69 Respiratory Rate 12 13 12 Blood Pressure 102/71 98/68 L 92/67 L Pulse Oximetry 96 95 96 Oxygen Delivery Nasal Cannula Nasal Cannula Room Air Oxygen Flow Rate 2 2 12/30/23 16:10 12/30/23 16:55 12/30/23 17:25 Temperature 36.6 C Pulse Rate 69 66 69 Respiratory Rate 18 18 18 Blood Pressure 104/66 119/66 107/66 Pulse Oximetry 95 95 97 Oxygen Delivery Oxygen Flow Rate 12/30/23 19:27 12/30/23 20:00 12/31/23 00:03 Temperature 36.5 C 36.5 C Pulse Rate 84 82 Respiratory Rate 20 20 Blood Pressure 110/69 132/81 Pulse Oximetry 98 98 Oxygen Delivery Room Air Oxygen Flow Rate 12/31/23 04:02 12/30/23 23:05 12/31/23 07:44 Temperature 36.5 C Pulse Rate 80 83 Respiratory Rate 20 Blood Pressure 115/76 Pulse Oximetry 97 97 Oxygen Delivery CPAP Room Air Oxygen Flow Rate 12/31/23 07:45 12/31/23 08:29 12/31/23 08:35 Temperature 36.2 C L Pulse Rate 79 Respiratory Rate 16 Blood Pressure 130/83 Pulse Oximetry 100 95 Oxygen Delivery Room Air Room Air Oxygen Flow Rate 12/31/23 11:49 Temperature 36.6 C Pulse Rate 72 Respiratory Rate 16 Blood Pressure 116/80 Pulse Oximetry 96 Oxygen Delivery Oxygen Flow Rate Intake/Output Intake/Output: Intake & Output 12/28/23 12/29/23 12/30/23 12/31/23 23:59 23:59 23:59 23:59 Intake Total 340 920 Output Total 200 200 Balance 140 720 Meds/Results Medications: Active Medications Generic Name Dose Route Start Last Admin Trade Name Freq PRN Reason Stop Dose Admin Acetaminophen 500 mg 12/30/23 16:28 Acetaminophen 500 Mg Tablet PO Q6H PRN Pain Rated 1-3 Aspirin 325 mg 12/30/23 21:00 12/31/23 08:34 Aspirin 325 Mg Enteric Tablet PO 325 mg Q12HR SUDHEER Administration Diazepam 5 mg 12/30/23 16:28 Diazepam (*Crx) 5 Mg Tablet PO Q8H PRN Spasms Diphenhydramine HCl 25 mg 12/30/23 16:28 Diphenhydramine Hcl Inj 50 Mg/Ml Vial IV PUSH Q6H PRN Itching Hydrochlorothiazide 25 mg 12/31/23 09:00 12/31/23 08:34 Hydrochlorothiazide 25 Mg Tablet PO 25 mg QAM SUDHEER Administration Hydromorphone HCl 1 mg 12/30/23 16:28 Hydromorphone Hcl Inj (*Crx) 1 Mg/Ml Syr IV PUSH Q2H PRN Breakthrough Pain Rated 7-10 or NPO Hydromorphone HCl 0.5 mg 12/30/23 16:28 Hydromorphone Hcl Inj (*Crx) 1 Mg/Ml Syr IV PUSH Q2H PRN Breakthrough Pain Rated 4-6 or NPO Ibuprofen 800 mg in 200 mls @ 400 mls/hr 12/30/23 16:28 Caldolor 800 Mg/200 Ml IVPB Q6H PRN Breakthrough Pain Rated 1-3 or NPO Ketorolac Tromethamine 15 mg 12/30/23 18:00 12/31/23 13:20 Ketorolac 15 Mg/Ml
--- NOTE | 2023-12-31 14:22 | PM.DS ---
DS: Admitting Diagnosis Discharge Date 12/31/23 Admitting Diagnosis LEFT KNEE DJD DS: Discharge Diagnosis Discharge Diagnosis (1) Degenerative arthritis of left knee: Qualifiers: Osteoarthritis type: primary Qualified Code(s): M17.12 - Unilateral primary osteoarthritis, left knee Code(s): M17.12 - Unilateral primary osteoarthritis, left knee Status: Acute DS: Summary Hospital Course Reason for hospitalization: LEFT TKA Hospital Course: PATIENT WAS ADMITTED S/P TOTAL KNEE ARTHROPLASTY FOR POSTOPERATIVE MEDICAL MANAGEMENT, PAIN CONTROL AND MOBILIZATION WITH PHYSICAL AND OCCUPATIONAL THERAPY. THE PATIENT PROGRESSED WELL WITH PT/OT. LABS AND VITALS REMAINED STABLE AND PAIN WELL CONTROLLED. THE PATIENT HAS BEEN CLEARED TO BE DISCHARGED HOME. FOLLOW UP APPOINTMENT SCHEDULED. DISCHARGE INSTRUCTIONS DISCUSSED AT LENGTH WITH THE PATIENT. MEDICATIONS REVIEWED. Status at Discharge Cognitive/behavioral status at discharge: STABLE Time Spent with Patient Time attestation: Total time spent providing and/or coordinating discharge services: DS: Data Data Completed and Pending Labs on day of discharge: Labs from last 24 hours 12/31/23 04:47 WBC 12.6 H RBC 3.98 L Hgb 11.9 L Hct 36.4 L MCV 91.5 MCH 29.9 MCHC 32.7 RDW 13.6 Plt Count 160 MPV 11.6 H Immature Gran % (Auto) 0.6 H Neut % (Auto) 77.6 H Lymph % (Auto) 8.5 L [place] % (Auto) 13.1 H Eos % (Auto) 0.0 Baso % (Auto) 0.2 Lymph # (Auto) 1.07 [place] # (Auto) 1.7 H Eos # (Auto) 0.0 Baso # (Auto) 0.0 Abs Immat Gran (auto) 0.08 H Absolute Neuts (auto) 9.8 H Absolute Nucleated RBC 0.000 Nucleated RBC % 0.0 Sodium 136 L Potassium 4.2 Chloride 100 Carbon Dioxide 27 Anion Gap 9 BUN 22 H Creatinine 1.20 Estim Creat Clear Calc 73 Estimated GFR > 60 Glucose 116 H Calcium 8.6 Discharge Plan Discharge Patient Disposition: Home Health Service Discharge Instructions: Care Coordination: Patient to have [facility] for PT/OT eval and treat, and half-way. They can be reached at [phone] if you have any questions. They will contact you to schedule their first visit. LORENZO STATON M.D. [facility] [address] [place] [address] POST OPERATIVE DISCHARGE INSTRUCTIONS FOLLOWING TOTAL KNEE REPLACEMENT SURGERY ? Your dressing will be changed prior to your discharge. You will be sent home with one additional dressing to be changed on post op day 7 by the home health RN. Your dedra will be removed on the 14th day after surgery and steri-strips will be placed. Please practice good hand hygiene and do not touch your incision in order to prevent infection. ? You may shower with your dressing but do not submerge in a bath tub. ? Do not drive or operate machinery until you are released by Dr. Staton. ? Do not walk without a walker for any reason until you are released by Dr. Staton. ? Continue to use your ice machine. Please use a towel or pillow case to protect your skin before applying your ice machine. ? Do NOT place a pillow under your knee. You may use a pillow from the calf down if needed. This will prevent a flexion contracture postoperatively. ? You may begin use of your CPM machine at home if you have been given one pre-operatively. DO NOT USE WHILE YOU ARE SLEEPING. ? Your first post op appointment was sent to you via mail preoperatively. If you have any questions or are unable to make your appointment, please contact our office for scheduling questions. ? Your medications have been sent to your pharmacy. You have been sent home with pain medication. We have also sent you with a stool softener as narcotics can cause constipation. Please keep this in mind during your postoperative recovery. If you are not experiencing regular bowel movements, please contact our office for further instruction. ? Please contact our o
--- NOTE | 2023-12-31 14:43 | P.PNAN_ITS ---
Anes - Prog Note Post-Op Date/Time: 12/31/23 14:43 Cardiovascular status: normal Respiratory status: normal Airway patency: baseline Mental status: baseline Post-Op hydration status: normal Vital Signs: Last Vital Signs Temp 36.6 C 12/31/23 11:49 Pulse 72 12/31/23 11:49 Resp 16 12/31/23 11:49 BP 116/80 12/31/23 11:49 Pulse Ox 96 12/31/23 11:49 O2 Del Method Room Air 12/31/23 08:35 O2 Flow Rate 2 12/30/23 16:00 Pain Score (VAS): 07/26 I/O: Intake & Output 12/30/23 12/31/23 12/31/23 23:59 07:59 15:59 Intake Total 290 440 480 Output Total 200 200 Balance 90 240 480 Laboratory Tests 12/31/23 04:47 12/31/23 04:47 12/31/23 04:47 WBC 12.6 H RBC 3.98 L Hgb 11.9 L Hct 36.4 L MCV 91.5 MCH 29.9 MCHC 32.7 RDW 13.6 Plt Count 160 MPV 11.6 H Immature Gran % (Auto) 0.6 H Neut % (Auto) 77.6 H Lymph % (Auto) 8.5 L [place] % (Auto) 13.1 H Eos % (Auto) 0.0 Baso % (Auto) 0.2 Lymph # (Auto) 1.07 [place] # (Auto) 1.7 H Eos # (Auto) 0.0 Baso # (Auto) 0.0 Abs Immat Gran (auto) 0.08 H Absolute Neuts (auto) 9.8 H Absolute Nucleated RBC 0.000 Nucleated RBC % 0.0 Sodium 136 L Potassium 4.2 Chloride 100 Carbon Dioxide 27 Anion Gap 9 BUN 22 H Creatinine 1.20 Estim Creat Clear Calc 73 Estimated GFR > 60 Glucose 116 H Calcium 8.6 Post-procedural complaints: none Patient Feedback: Patient satisfied with anesthetic care.
== END 2023-12-31 16:10 | disposition home health service (06) ==
LOC: ANHSURGERY 13:57 → ANH2MED 16:32
PROVIDERS: PCP Family Medicine; Visit Provider Orthopaedic Surgery
PROC: (CPT 27447; principal; 2023-12-30 12:00)
DX: M17.12 Unilateral primary osteoarthritis, left knee (principal); M25.762 Osteophyte, left knee; I10 Essential (primary) hypertension; E78.5 Hyperlipidemia, unspecified; K21.9 Gastro-esophageal reflux disease without esophagitis; G47.33 Obstructive sleep apnea (adult) (pediatric); F12.90 Cannabis use, unspecified, uncomplicated; E66.9 Obesity, unspecified; Z68.32 Body mass index [BMI] 32.0-32.9, adult; Z79.82 Long term (current) use of aspirin; Z79.1 Long term (current) use of non-steroidal anti-inflammatories (NSAID); Z80.9 Family history of malignant neoplasm, unspecified; G89.18 Other acute postprocedural pain
CPT/HCPCS: 64447; 27447; 36415; 73560; 80048; 80307; 81001; 82040; 85025; 85610; 85730; 86850; 86900; 86901; 87641; 97110; 97116; 97161; 97165; 97530; A9270; C1713; C1776; J0171; J0690; J1170; J1885; J2250; J2270; J2795; J3010; J3370; J7120

== ENCOUNTER 2024-01-30 12:35 | Inpatient (IN) | payer OTHER, SELFPAY ==
--- NOTE | ~2024-01-30 | CT_ITS ---
CT soft tissue neck w con Ordering provider: Juvenal Robison MD History: 63 years Male with . neck swelling . Comparison: None. Technique: CT soft tissues neck was performed with contrast. . Automated exposure control and iterat jade reconstruction technique were employed. The dose-length product was 501.01 mGy-cm. 75 mL Omnipaqu e 350 was given IV. Findings: LOWER HEAD: The visualized brain parenchyma, optic globes/orbits and mastoids are normal. The visua lized paranasal sinuses are well aerated. SALIVARY GLANDS: Stones are seen in the right submandibular gland with the largest measures 1.2 x 1.5 cm. The other stone measures 1.2 x 1.2 cm. Enlargement of the right submandibular gland is seen right. Possibility of abscess or collection deep to the right mandibular bodies highly suggestive. submandibular lymph node is seen measuring 1.9 CNM. THYROID: Normal. SUPRAHYOID DEEP SPACES: lymph nodes seen in the parapharyngeal with the largest on the right side gareth sures 1.9 CNM. CAROTID ARTERIES: Atherosclerotic changes bilaterally. JUGULAR VEINS: Normal. TONSILS: Normal. ORAL CAVITY: Deviation of the tongue to the left side with deviation of the oropharynx. PHARYNX, LARYNX AND TRACHEA: Deviation of the soft tissues in the lower oropharynx is seen which may be due to inflammatory changes in the area of a mass cannot techniques. Clinical evaluation advised.. No prevertebral soft tissue swelling. SUPERFICIAL SOFT TISSUES: Normal. No lymphadenopathy or neck mass. THORACIC INLET/VISUALIZED UPPER CHEST: Normal. SKELETAL: Age appropriate degenerative changes. IMPRESSION: 1. Large right submandibular gland with the large stones. Edema surrounding the gland with deviation of the tongue base to the left side and narrowing of the oropharyngeal area. Evaluation of the tongu e base is advised to exclude malignancy in the area is advised. Possibility of abscess in the area is not excluded seen deep to the right mandibular body. Reviewed, dictated and finalized at location A. IMPRESSION: 1. Large right submandibular gland with the large stones. Edema surrounding th e gland with deviation of the tongue base to the left side and narrowing of the oropharyngeal area. Evaluation of the tongue base is advised to exclude malign dwaine in the area is advised. Possibility of abscess in the area is not excluded seen deep to the right mandibular body.
[2024-01-30 12:42] VITALS: BP 148/89; PULSE 109; RESP 18; TEMP 37.1; O2SAT 100
[2024-01-30 15:29] VITALS: BP 153/104; PULSE 80; RESP 16; TEMP 36.6; O2SAT 97
[2024-01-30] MEDS: dexAMETHasone SOD PHOS INJ 10 MG/ML 1 ML VIAL IV PUSH (15:39)
--- NOTE | 2024-01-30 15:57 | ED.DENTAL ---
HPI - Dental/Oral General Chief complaint: Dental/Oral <Juvenal Robison MD - Last Filed: 01/31/24 15:33> Stated complaint: salivary stones? <Juvenal Robison MD - Last Filed: 01/31/24 15:33> Time Seen by Provider: 01/30/24 15:21 <Juvenal Robison MD - Last Filed: 01/31/24 15:33> History of Present Illness HPI Narrative: 63-year-old male present to emergency department for evaluation for a suspected parotid stone. Patient had this happen previously and May 16, 2022. Patient states that these current symptoms started approximately 5 days ago. Patient does have follow-up with ENT on 02/02 <Juvenal Robison MD - Last Filed: 01/31/24 15:33> Related Data Home medications: Home Medications Medication Instructions Recorded Confirmed cholecalciferol (vitamin D3) 125 5,000 unit PO DAILY 07/12/19 01/31/24 mcg (5,000 unit) capsule multivitamin 1 tablet PO DAILY 07/12/19 01/31/24 niacin 500 mg capsule,extended 500 mg PO .QHS 07/12/19 01/31/24 release turmeric root extract 500 mg 500 mg PO DAILY 07/12/19 01/31/24 capsule testosterone 50 mg/5 gram (1 %) 50 mg topical DAILY 10/20/23 01/31/24 transdermal gel (Testim) acetaminophen 650 mg 1,300 mg PO Q12H PRN Pain 12/12/23 01/31/24 tablet,extended release (Tylenol Arthritis Pain) coQ10 (ubiquinol) 100 mg capsule 100 mg PO HS 12/12/23 01/31/24 naproxen sodium 220 mg capsule 440 mg PO Q12H PRN Pain 12/12/23 01/31/24 (Aleve) omeprazole 40 mg capsule,delayed 20 mg PO DAILY 12/12/23 01/31/24 release sildenafil 50 mg tablet (Viagra) 50 mg PO PRN PRN sexual activity 01/31/24 01/31/24 <Juvenal Robison MD - Last Filed: 01/31/24 15:33> Allergies/adverse reactions: Allergies Allergy/AdvReac Type Severity Reaction Status Date / Time No Known Allergies Allergy Verified 01/31/24 14:40 <Juvenal Robison MD - Last Filed: 01/31/24 15:33> [facility] Past Medical History Medical History: Medical History Bilateral shoulder region arthritis Degenerative arthritis of left knee Dyslipidemia Essential hypertension GERD (gastroesophageal reflux disease) IFG (impaired fasting glucose) Left knee injury Obstructive sleep apnea (~10/2020) Other fatigue Shoulder impingement syndrome <Juvenal Robison MD - Last Filed: 01/31/24 15:33> Family History Family History: Family History Grandparent Diabetes mellitus Mother Diabetes mellitus Family history of obesity Hypertension Family history of kidney disease Other Family history of malignant neoplasm <Juvenal Robison MD - Last Filed: 01/31/24 15:33> Social History Social History: Social History Smoking status: Never smoker Second hand tobacco smoke exposure: No Additional smoking assessment comments: DENIES ANY FORM OF TOBACCO USE Alcohol intake: current Drinks per week: 14 Substance use: former Substance use type: marijuana Last use: 15 YRS AGO Do You Feel Safe in your Home?: Yes Lack of Transportation: No Lack of Food: Never True Current Housing: I Have Housing Concerned About Future Housing: No Difficulty Paying Gas/Electric Bills: No Difficulty Paying for Meds: No 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on: High School Diploma/GED Difficulty w/ Childcare or Family Care: No Living arrangements: with family 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ation 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 Dr Robison had discussed with Dr Hutchinson who will try to reach out to [facility]. Dr Hutchinson did call and say that after discussion with a hospitalist Dr Irene at [facility], patient was admitted under him, pending bed ass
[2024-01-30 16:01] VITALS: BP 138/97; PULSE 78; RESP 16; TEMP 36.6; O2SAT 100
[2024-01-30 16:21] LABS: Estimated CRCL calculation 74 ml/min; Estimated Glomerular Filt Rate > 60
[2024-01-30 16:22] LABS: Basophils Percent Auto 0.3 % (0.2-1.2); Eosinophils Percent Auto 0.1 % (0-4.4); Hematocrit 36.8 % (42.0-52.0); Hemoglobin 12.2 g/dL (14.0-18.0); Immature Granulocyte Absolute 0.09 K/mm3 (0.00-0.031); Immature Granulocyte Percent A 0.7 % (0-0.5); Lymphocytes Absolute Auto 1.29 K/mm3 (0.9-3.2); Lymphocytes Percent Auto 9.9 % (18.3-44.2); Mean Corpuscular HGB Conc 33.2 g/dl (32-36); Mean Corpuscular Volume 90.4 fl (80-100); Mean Platelet Volume 10.9 fl (7.4-10.4); Monocytes Absolute Auto 1.5 K/mm3 (0.1-0.6); Monocytes Percent Auto 11.3 % (2.6-8.5); Neutrophils Absolute Auto 10.2 K/mm3 (1.3-6.7); Neutrophils Percent Auto 77.7 % (45.5-73.1); Platelet Count Result 216 k/mm3 (150-375); Red Blood Count 4.07 M/mm3 (4.6-6.20); Red Cell Distribution Width 13.8 % (11.5-14.5); White Blood Count 13.1 K/mm3 (4.5-10.0)
[2024-01-30 16:35] LABS: Lactic Acid Reflex 1.5 mmol/L (0.7-2.0)
[2024-01-30 16:36] LABS: Alanine Aminotransferase 20 U/L (6-50); Albumin Level 4.6 g/dL (3.5-5.1); Alkaline Phosphatase 101 U/L (38-126); Anion Gap 14 mmol/L (4-12); Aspartate Amino Transferase 24 U/L (17-59); Bilirubin,Total 1.2 mg/dL (0.2-1.3); Blood Urea Nitrogen 16 mg/dL (9-20); Calcium 9.7 mg/dL (8.4-10.2); Carbon Dioxide 27 mmol/L (22-30); Chloride 94 mmol/L (98-107); Estimated CRCL calculation 81 ml/min; Estimated Glomerular Filt Rate > 60; Glucose 107 mg/dL (65-110); Potassium 3.8 mmol/L (3.4-5.0); Sodium 135 mmol/L (137-145)
[2024-01-30 16:44] LABS: INR 1.1; Prothrombin Time 14.5 Seconds (11.1-14.7)
[2024-01-30 16:45] LABS: Partial Thromboplastin Time 32.4 Seconds (22.3-36.8)
[2024-01-30 17:00] VITALS: BP 156/98; PULSE 80; RESP 16; TEMP 36.5; O2SAT 99
[2024-01-30] MEDS: AMPICILLIN SULB 3 GM/NS 100 ML 3 GM/100 ML VIAL IVPB (17:52)
[2024-01-30 18:16] VITALS: BP 154/99; PULSE 78; RESP 16; TEMP 36.6; O2SAT 96
[2024-01-30] MEDS: SODIUM CHLORIDE 0.9% IV 1,000 ML 999 ML IV CONT (19:56)
[2024-01-30 23:10] VITALS: BP 131/92; PULSE 80; RESP 16; TEMP 36.6; O2SAT 98
--- NOTE | 2024-01-30 23:12 | PC.NURSE ---
Pt moved to hospital bed at this time.
[2024-01-31] MEDS: AMPICILLIN SULB 3 GM/NS 100 ML 3 GM/100 ML VIAL IVPB ×4 (00:30→18:35)
[2024-01-31 02:56] VITALS: BP 138/96; PULSE 82; RESP 19; TEMP 36.6; O2SAT 98
[2024-01-31 06:13] VITALS: BP 137/95; PULSE 86; RESP 19; O2SAT 100
[2024-01-31 07:22] VITALS: BP 134/85; PULSE 79; RESP 16; TEMP 36.4; O2SAT 98
--- NOTE | 2024-01-31 11:26 | PC.NURSE ---
Pt's and daughter here, has pt home medications including a pill planer. When nurse went into the room to give pt his medications, pt said I already took my medications . Pt did not want to wait for the nurse and took his home medications.
[2024-01-31 12:24] VITALS: BP 141/87; PULSE 94; RESP 19; TEMP 36.7; O2SAT 98
--- NOTE | 2024-01-31 13:05 | ADMGEN ---
This patient, Lukas Monzon, was admitted to Medical Room 261-01. Patient/family oriented to hospital policies and general routines including ID bracelet, bed and alarms, visiting hours, pain management, procedures, bathroom and other care routines, personal items, smoking policy, room service/diet, and visiting hours. Information on how to activate the Rapid Response Team has been discussed. Patient/Family are encouraged to report perceived risks to care and to ask questions if they do not understand what they are told or what they should do.
[2024-01-31 13:24] VITALS: BMI 32.1
--- NOTE | 2024-01-31 16:04 | PM.IMHP ---
H&P: HPI History of Present Illness Date/Time: 01/31/24 16:04 Chief Complaint: Salivary stone Narrative: Mr. Monzon is a 63-year-old male with a history of former smoker, alcohol use, dyslipidemia, GERD, essential hypertension, degenerative joint disease status post TKA on 12/30/2023, your history of salivary stones, most recent acute episode of sialadenitis in May 2022 evaluated in [place] [facility] and sent home after ENT referral antibiotics, he has been following with a doctor Dr. Tomi Luna at [facility] ENT as referred by Dr. Reyes. Patient has elected not to move forward with laser lithotripsy yet. The patient felt so calling of his right lower face about 5 days prior to admission. He contacted his ENT and has an appointment set up on 02/03/2024. He has been trying to massage it with a warm massage done and suck on candy. However, 2 days prior to admission he could no longer handle his secretions or eat food and had to put a sock in his mouth to absorb the secretions while he was sleeping. He never complained of chest pain or cough or shortness of breath or fever or vomiting or diarrhea. He presented to [place] [facility] on 01/30/2024 and there he was evaluated with a workup revealing white count 12.6, afebrile, hemodynamically stable, a CT of soft tissue neck with contrast demonstrated large right submandibular gland with large stones, edema surrounding the gland with deviation of the tongue base to the left-sided narrowing of the [place] pharyngeal area, undetermined presence of abscess. The patient was given Unasyn and Decadron 10 mg IV x1. There was report of mild improvement in symptoms. ENT at [facility] reported no surgical management and the patient was denied transfer about hospice. At that time the curriculum writer was contacted, having felt this was a high risk case without ENT backup the curriculum writer then again contacted [facility] and the hospitalist accepted. The patient has been on the wait list. The curriculum writer contacted again a day later on 01/30 and was told the patient's symptoms have greatly improved. Due to this ER physician felt it was safe for the patient to be admitted to [facility]. Evaluating the patient in room 254 he reports good improvement in the pain and swelling, he still has uncomfortableness in the right lower jaw. He feels it is slightly difficult to handle secretions but he can not swallow any food. He feels he has to be cautious at the moment. Again, denies any other symptoms. Review of Systems Review of Systems: All systems reviewed & are unremarkable except as noted in HPI and below (Subjective) [facility] Past Medical History Medical History Bilateral shoulder region arthritis Degenerative arthritis of left knee Dyslipidemia Essential hypertension GERD (gastroesophageal reflux disease) IFG (impaired fasting glucose) Left knee injury Obstructive sleep apnea (~10/2020) Other fatigue Shoulder impingement syndrome Family History Family History Grandparent Diabetes mellitus Mother Diabetes mellitus Family history of obesity Hypertension Family history of kidney disease Other Family history of malignant neoplasm Social History Social History Smoking status: Never smoker Second hand tobacco smoke exposure: No Additional smoking assessment comments: DENIES ANY FORM OF TOBACCO USE Alcohol intake: current Drinks per week: 14 Substance use: former Substance use type: marijuana Last use: 15 YRS AGO Do You Feel Safe in your Home?: Yes Lack of Transportation: No Lack of Food: Never True Current Housing: I Have Housing Concerned About Future Housing: No Difficulty Paying Gas/Electric Bills: No Difficulty Paying for Meds: No 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
[2024-01-31] MEDS: methylPREDNISolone SOD SUCC 125 MG VIAL IV PUSH (16:47)
[2024-01-31 19:55] VITALS: BP 160/85; PULSE 84; RESP 20; TEMP 35.8; O2SAT 99
[2024-01-31 20:00] VITALS: PULSE 84; RESP 20; O2SAT 99
--- NOTE | 2024-01-31 21:47 | PC.NURSE ---
When doing evening med pass at 2100, pt refused to take diltiazem and heparin. Pt states that he is already taking what is doctor prescribed and will not be taking anything extra, except for pain meds and antibiotics. Pt states that he also took his home dose of diltiazem at 1900 and states that he will take his own home dose while he is here. Pt was educated that he was not allowed to take his home medication while in the hospital and that we would provide him with his medication.
[2024-01-31] MEDS: ACETAMINOPHEN 325 MG TABLET 650 MG PO (21:56)
[2024-02-01] VITALS (7 sets, daily range): BP systolic 109–131; BP diastolic 63–87; PULSE 60–68; RESP 18–20; TEMP 36.3–36.6; O2SAT 97–100
[2024-02-01] MEDS: AMPICILLIN SULB 3 GM/NS 100 ML 3 GM/100 ML VIAL IVPB ×5 (00:24→23:57)
[2024-02-01 05:13] LABS: Basophils Percent Auto 0.2 % (0.2-1.2); Hematocrit 35.3 % (42.0-52.0); Hemoglobin 11.3 g/dL (14.0-18.0); Immature Granulocyte Percent A 1.6 % (0-0.5); Lymphocytes Absolute Auto 0.91 K/mm3 (0.9-3.2); Lymphocytes Percent Auto 7.2 % (18.3-44.2); Mean Corpuscular Hemoglobin 29.1 pg (26-34); Mean Platelet Volume 11.1 fl (7.4-10.4); Monocytes Absolute Auto 0.6 K/mm3 (0.1-0.6); Monocytes Percent Auto 4.8 % (2.6-8.5); Neutrophils Absolute Auto 10.9 K/mm3 (1.3-6.7); Neutrophils Percent Auto 86.2 % (45.5-73.1); Platelet Count Result 212 k/mm3 (150-375); Red Blood Count 3.88 M/mm3 (4.6-6.20); Red Cell Distribution Width 13.8 % (11.5-14.5); White Blood Count 12.6 K/mm3 (4.5-10.0)
[2024-02-01 05:40] LABS: Anion Gap 9 mmol/L (4-12); Blood Urea Nitrogen 23 mg/dL (9-20); Carbon Dioxide 27 mmol/L (22-30); Chloride 101 mmol/L (98-107); Estimated CRCL calculation 95 ml/min; Estimated Glomerular Filt Rate > 60; Glucose 156 mg/dL (65-110); Magnesium 2.3 mg/dL (1.6-2.3); Potassium 4.2 mmol/L (3.4-5.0); Sodium 137 mmol/L (137-145)
[2024-02-01 06:03] LABS: Procalcitonin 0.1 ng/mL
[2024-02-01] MEDS: dilTIAZem HCL 12 HR 60 MG CAP.12HR 180 MG PO ×2 (08:40→21:13)
[2024-02-01] MEDS: hydroCHLOROthiazide 25 MG TABLET PO (08:42)
[2024-02-01] MEDS: ACETAMINOPHEN 325 MG TABLET 650 MG PO ×3 (08:42→23:57)
[2024-02-01] MEDS: LOSARTAN POTASSIUM 100 MG TABLET PO (08:42)
--- NOTE | 2024-02-01 09:43 | PM.IMPN ---
Progress Note: A&P Assessment and Plan (1) Leukocytosis: Code(s): D72.829 - Elevated white blood cell count, unspecified Status: Acute (2) Sialadenitis: Code(s): K11.20 - Sialoadenitis, unspecified Status: Inactive Plan Mr. Monzon is a 63-year-old male with a history of former smoker, alcohol use, dyslipidemia, GERD, essential hypertension, degenerative joint disease status post TKA on 12/30/2023, your history of salivary stones, most recent acute episode of sialadenitis in May 2022 evaluated in [place] ER and sent home after ENT referral antibiotics, he has been following with a doctor Dr. Tomi Luna at [facility] ENT as referred by Dr. Reyes. Patient has elected not to move forward with laser lithotripsy yet. The patient felt so calling of his right lower face about 5 days prior to admission. He contacted his ENT and has an appointment set up on 02/03/2024. He has been trying to massage it with a warm massage done and suck on candy. However, 2 days prior to admission he could no longer handle his secretions or eat food and had to put a sock in his mouth to absorb the secretions while he was sleeping. He never complained of chest pain or cough or shortness of breath or fever or vomiting or diarrhea. He presented to [place] on 01/30/2024 and there he was evaluated with a workup revealing white count 12.6, afebrile, hemodynamically stable, a CT of soft tissue neck with contrast demonstrated large right submandibular gland with large stones, edema surrounding the gland with deviation of the tongue base to the left-sided narrowing of the [place] pharyngeal area, undetermined presence of abscess. The patient was given Unasyn and Decadron 10 mg IV x1. There was report of mild improvement in symptoms. ENT at [facility] reported no surgical management and the patient was denied transfer about hospice. At that time the abstract writer was contacted, having felt this was a high risk case without ENT backup the abstract writer then again contacted [facility] and the hospitalist accepted. The patient has been on the wait list. The abstract writer contacted again a day later on 01/30 and was told the patient's symptoms have greatly improved. Due to this ER physician felt it was safe for the patient to be admitted to [facility]. Evaluating the patient in room 254 he reports good improvement in the pain and swelling, he still has uncomfortableness in the right lower jaw. He feels it is slightly difficult to handle secretions but he can not swallow any food. He feels he has to be cautious at the moment. Again, denies any other symptoms. Leukocytosis is mild on admission at 12.6, and only mildly elevated at 13.1 on 2nd day 01/31/2024 after receiving Decadron. Continue to trend and check procalcitonin as well. The patient has no other signs or symptoms of sepsis. His pain and swelling have improved as he reports, is having mild difficulty handling secretions but is able to eat well. We will monitor him closely give another dose of steroid in the form Solu-Medrol 125 mg IV x1. Continue Unasyn 3 g q.6 hours as appears to be working. Have instructed nurses to check his airway and swelling function every 6 hours and report to the physician if there is any change. The patient feels he is going in the right direction. He does have an appointment with his usual ENT on 02/02. It would be prudent to have the patient stabilized and discharged before that day so we can follow-up. This is considering the usual undesired bed wait to get transferred to [facility]. The patient now reports he definitely wants to go through with laser lithotripsy with Dr. Luna. He is on the wait list for [facility] currently although in case he does deteriorate. We discussed his management, risks versus benefits of medications and he agreed to the plan above. Restart his SUIT ATTENDANT medications for hyp
[2024-02-01] MEDS: ROSUVASTATIN 5 MG TABLET PO (21:13)
[2024-02-02 04:51] VITALS: BP 115/71; PULSE 60; RESP 20; TEMP 36.4; O2SAT 97
[2024-02-02 05:36] LABS: Basophils Percent Auto 0.2 % (0.2-1.2); Eosinophils Percent Auto 0.1 % (0-4.4); Hematocrit 34.4 % (42.0-52.0); Hemoglobin 11.2 g/dL (14.0-18.0); Immature Granulocyte Absolute 0.12 K/mm3 (0.00-0.031); Lymphocytes Absolute Auto 2.29 K/mm3 (0.9-3.2); Lymphocytes Percent Auto 18.5 % (18.3-44.2); Mean Corpuscular HGB Conc 32.6 g/dl (32-36); Mean Corpuscular Hemoglobin 29.6 pg (26-34); Mean Corpuscular Volume 90.8 fl (80-100); Mean Platelet Volume 10.5 fl (7.4-10.4); Monocytes Absolute Auto 1.5 K/mm3 (0.1-0.6); Monocytes Percent Auto 11.8 % (2.6-8.5); Neutrophils Absolute Auto 8.5 K/mm3 (1.3-6.7); Neutrophils Percent Auto 68.4 % (45.5-73.1); Platelet Count Result 225 k/mm3 (150-375); Red Blood Count 3.79 M/mm3 (4.6-6.20); Red Cell Distribution Width 13.7 % (11.5-14.5); White Blood Count 12.4 K/mm3 (4.5-10.0)
[2024-02-02 05:55] LABS: Anion Gap 9 mmol/L (4-12); Blood Urea Nitrogen 24 mg/dL (9-20); Carbon Dioxide 26 mmol/L (22-30); Chloride 101 mmol/L (98-107); Estimated CRCL calculation 86 ml/min; Estimated Glomerular Filt Rate > 60; Glucose 114 mg/dL (65-110); Potassium 3.7 mmol/L (3.4-5.0); Sodium 136 mmol/L (137-145)
[2024-02-02 06:03] LABS: Procalcitonin 0.1 ng/mL
[2024-02-02] MEDS: ACETAMINOPHEN 325 MG TABLET 650 MG PO ×2 (06:04→12:36)
[2024-02-02] MEDS: AMPICILLIN SULB 3 GM/NS 100 ML 3 GM/100 ML VIAL IVPB ×2 (06:04→11:56)
--- NOTE | 2024-02-02 08:41 | PM.DS ---
DS: Admitting Diagnosis Discharge Date 02/02/24 Admitting Diagnosis Sialadenitis DS: Discharge Diagnosis Discharge Diagnosis (1) Sialadenitis: Code(s): K11.20 - Sialoadenitis, unspecified Status: Inactive DS: Summary Hospital Course Hospital Course: Mr. Monzon is a 63-year-old male with a history of former smoker, alcohol use, dyslipidemia, GERD, essential hypertension, degenerative joint disease status post TKA on 12/30/2023, your history of salivary stones, most recent acute episode of sialadenitis in May 2022 evaluated in [place] [facility] and sent home after ENT referral antibiotics, he has been following with a doctor Dr. Tomi Luna at [facility] ENT as referred by Dr. Reyes. Patient has elected not to move forward with laser lithotripsy yet. The patient felt so calling of his right lower face about 5 days prior to admission. He contacted his ENT and has an appointment set up on 02/03/2024. He has been trying to massage it with a warm massage done and suck on candy. However, 2 days prior to admission he could no longer handle his secretions or eat food and had to put a sock in his mouth to absorb the secretions while he was sleeping. He never complained of chest pain or cough or shortness of breath or fever or vomiting or diarrhea. He presented to [place] [facility] on 01/30/2024 and there he was evaluated with a workup revealing white count 12.6, afebrile, hemodynamically stable, a CT of soft tissue neck with contrast demonstrated large right submandibular gland with large stones, edema surrounding the gland with deviation of the tongue base to the left-sided narrowing of the [place] pharyngeal area, undetermined presence of abscess. The patient was given Unasyn and Decadron 10 mg IV x1. There was report of mild improvement in symptoms. ENT at [facility] reported no surgical management and the patient was denied transfer about hospice. At that time the press writer was contacted, having felt this was a high risk case without ENT backup the press writer then again contacted [facility] and the hospitalist accepted. The patient has been on the wait list. The press writer contacted again a day later on 01/30 and was told the patient's symptoms have greatly improved. Due to this ER physician felt it was safe for the patient to be admitted to [facility]. Evaluating the patient in room 254 he reports good improvement in the pain and swelling, he still has uncomfortableness in the right lower jaw. He feels it is slightly difficult to handle secretions but he can not swallow any food. He feels he has to be cautious at the moment. Again, denies any other symptoms. Leukocytosis is mild on admission at 12.6, and only mildly elevated at 13.1 on 2nd day 01/31/2024 after receiving Decadron. Continue to trend and check procalcitonin as well. The patient has no other signs or symptoms of sepsis. His pain and swelling have improved as he reports, is having mild difficulty handling secretions but is able to eat well. We will monitor him closely give another dose of steroid in the form Solu-Medrol 125 mg IV x1. Continue Unasyn 3 g q.6 hours as appears to be working. Have instructed nurses to check his airway and swelling function every 6 hours and report to the physician if there is any change. The patient feels he is going in the right direction. He does have an appointment with his usual ENT on 02/02. It would be prudent to have the patient stabilized and discharged before that day so we can follow-up. This is considering the usual undesired bed wait to get transferred to [facility]. The patient now reports he definitely wants to go through with laser lithotripsy with Dr. Luna. He is on the wait list for [facility] currently although in case he does deteriorate. We discussed his management, risks versus benefits of medications and he agreed to the plan above. Restart his P
[2024-02-02] MEDS: PANTOPRAZOLE 40 MG TABLET PO (09:22)
[2024-02-02 09:24] VITALS: BP 117/77; PULSE 63; RESP 20; O2SAT 98
[2024-02-02] MEDS: LOSARTAN POTASSIUM 100 MG TABLET PO (09:26)
[2024-02-02] MEDS: dilTIAZem HCL 12 HR 60 MG CAP.12HR 180 MG PO (09:26)
[2024-02-02 09:27] VITALS: PULSE 63; RESP 20; O2SAT 98
[2024-02-02] MEDS: hydroCHLOROthiazide 25 MG TABLET PO (09:27)
--- NOTE | 2024-02-02 09:42 | PC.NURSE ---
Dr Hutchinson aware pt took lower dose of Diltiazem based on BP on 02/02/24 for a BP of 117/77.
[2024-02-02 14:00] VITALS: BP 129/78; PULSE 78; RESP 12; TEMP 36.8; O2SAT 98
== END 2024-02-02 15:35 | disposition home or self-care (01) | DRG 156 ==
LOC: ANHED 15:33 → ANH2MED 01-31 12:35
PROVIDERS: Admitting Provider General Practice; Emergency Provider Emergency Medicine; PCP Nurse Practitioner Family; Visit Provider General Practice
DX: K11.5 Sialolithiasis (principal); K11.20 Sialoadenitis, unspecified; I10 Essential (primary) hypertension; K21.9 Gastro-esophageal reflux disease without esophagitis; E78.5 Hyperlipidemia, unspecified; M19.012 Primary osteoarthritis, left shoulder; M19.011 Primary osteoarthritis, right shoulder; M17.12 Unilateral primary osteoarthritis, left knee; G47.33 Obstructive sleep apnea (adult) (pediatric); Z96.659 Presence of unspecified artificial knee joint
CPT/HCPCS: 36415; 70491; 80048; 80053; 83605; 83735; 84145; 85025; 85610; 85730; 87040; 96365; 96366; 96375; 99285; A9270; G0378; J0295; J1100; J2919; J7030; Q9967

== ENCOUNTER 2024-03-19 10:45 | Outpatient (RCR) | payer OTHER, SELFPAY ==
--- NOTE | 2024-01-29 16:22 | OPREHPOC ---
Outpatient Therapy Plan of Care This is a Multidisciplinary Plan of Care that may contain components documented by all disciplines (PT, OT, and ST.) PT Problem 1 PT Problem #1 Knowledge Deficit PT Goal 1 Goal [place] with HEP Target Visit 4 PT Problem 2 PT Problem #2 Impaired Range of Motion PT Goal 1 Goal Achieve terminal knee extension Target Visit 5 PT Goal 2 Goal Achieve 125 degrees of L knee flexion for improved foot clearance Target Visit 10 PT Problem 3 PT Problem #3 Impaired Gait PT Goal 1 Goal Ambulate independent of AD with even stride length Target Visit 10 PT Goal 2 Goal Demonstrate ability to ascend and descend 4 steps with reciprocal pattern Target Visit 10
--- NOTE | 2024-01-29 16:22 | PTOPEVAL1 ---
Assessment and note entered by Brian Trujillo, PT Evaluation Information Assessment Status Evaluation Diagnosis History TKA L LE ICD-10 Condition Codes (PT) Pain in left knee M25.562 Onset 12/30/23 Subjective Information Reports that he is still having a lot of stiffness in the knee but when he is walking it feel loose as if he does not trust it. Reports a lot of swelling still in his left ankle with some soreness. Medial knee is still very tender to the touch and he is having trouble sleeping. Patient is following up after 3 weeks of home health therapy. Occasional pain in low back as well. HE has a cane, walker, and occasionally walks around the house with nothing. Reported Pain Level Pain Score 4: Self Report Assessment PT Clinical Summary Patient demonstrates minor loss in knee ROM improved through manual intervention and passive motion this date. Altered gait noted and improved through cueing to resume knee flexion ins wing phase. Patient will benefit from skilled therapy to address deficits for improved gait cycle and mobilization functionally. Plan of Care Interventions Aquatic Therapy,Gait Training,Intermittent Compression,Manual Therapy,Neuro Re-education, Therapeutic Activities,Therapeutic Exercise PT Services Indicated Yes Treatment Frequency and 2x/week for 10 visits Duration These treatments will address the objective and functional deficits as defined above. The patient will be advanced safely and appropriately in order for the patient to progress towards his/her prior level of function. Additional exercises will be introduced and as well as a comprehensive home exercise program upon discharge, if needed, ?to ensure carryover of functional gains achieved in the clinic. This treatment plan has been reviewed and agreement upon by the patient.
--- NOTE | 2024-03-17 14:31 | OPREHPOC ---
Outpatient Therapy Plan of Care This is a Multidisciplinary Plan of Care that may contain components documented by all disciplines (PT, OT, and ST.) PT Problem 1 PT Problem #1 Knowledge Deficit PT Goal 1 Goal / Goal Update [place] with HEP Target Visit 4 Progress Met PT Goal 2 Goal / Goal Update 03-17-24 progress met goal continue to progress HEP Target Visit 13 PT Problem 2 PT Problem #2 Impaired Range of Motion PT Goal 1 Goal / Goal Update Achieve terminal knee extension 03-17-24 progress goal not met (-5') continue towards goal Target Visit 5 PT Goal 2 Goal / Goal Update Achieve 125 degrees of L knee flexion for improved foot clearance 03-17-24 progress goal not met, 120' continue Target Visit 13 PT Problem 3 PT Problem #3 Impaired Gait PT Goal 1 Goal / Goal Update Ambulate independent of AD with even stride length 03-17-24 progress met goal NEW GOAL: 1* 2 minute walking test distance of 525' 2* pt report walking in the store with shopping, not using the motorized scooter Target Visit 10 PT Goal 2 Goal / Goal Update Demonstrate ability to ascend and descend 4 steps with reciprocal pattern 03-17-24 progress met goal discontinue goal Target Visit 10 PT Problem 4 PT Problem #4 Impaired Strength PT Goal 1 Goal / Goal Update 03-17-24 progress 1* single leg standing L LE x 10 seconds with good stability 2* single leg press L 80# x 10 reps Target Visit 13
--- NOTE | 2024-03-17 14:31 | PTOPPROG ---
Assessment and note entered by Itzel Tran, PT Progress Report Assessment Status Progress Diagnosis History TKA L LE ICD-10 Condition Codes (PT) Pain in left knee M25.562 Onset 12/30/23 Subjective Information on stairs, go slow and cautious on them; have not been walking much too much to let knee heal; saw 2 days ago--he drained fluid from knee and it is a little more loose now; use the cane when go out of the house; doing 10-20 reps of the exercises at home. 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 pain range in the past week -11/23 medial knee sore and tender to touch; decrease pain: elevate leg, use ice; increase pain: tender when lie on his side not taking any pain meds reported tolerance with walking- have not been doing much long distance walking, with shopping use the motorized scooter; standing 15- 20 minutes Assessment PT Clinical Summary Lukas has received 7 PT sessions. Compared to initial evaluation: pain rating is the same at -11/23; decreased edema with circumferential measurement at joint line by 5 cm; gait without assistive device or cane PRN and is using a knee velcro brace; has not been doing distance walking -- at the store is using a motorized scooter; decreased weight shift onto with stance phase; strength of knee increased, but single leg standing is 4 seconds; single leg press R 80#/ L 60#. active ROM in sitting: L knee (-10') to 120'; in supine knee extension (-5'). The goals were partially achieved. Continue PT to further increase extension ROM and knee/hip strength for return to work and activity level with walking and home tasks. Plan of Care Interventions Gait Training,Intermittent Compression,Manual Therapy,Neuro Re-education,Patient/Caregiver Education,Therapeutic Activities,Therapeutic Exercise,Other Other Interventions taping PT Services Indicated Yes Treatment Frequency and 1-2x/wk for 6 visits Duration These treatments will address the objective and functional deficits as defined above. The patient will be advanced safely and appropriately in order for the patient to progress towards his/her prior level of function. Additional exercises will be introduced and as well as a comprehensive home exercise program upon discharge, if needed, ?to ensure carryover of functional gains achieved in the clinic. This treatment plan has been reviewed and agreement upon by the patient.
--- NOTE | 2024-03-26 09:05 | PCPTNOTE ---
Called and canceled , reason unknown. AKS
--- NOTE | 2024-03-31 09:37 | PCPTNOTE ---
Called and canceled, reason unknown. AKS
--- NOTE | 2024-04-02 09:41 | PCPTNOTE ---
Called and canceled. OUTBOUND SALES ADVISOR called pt, he plans to return to work soon. OUTBOUND SALES ADVISOR called Dr. WATKINS 's office to notified of 4 cx appts. and work plan. AKS
== END 2024-04-28 23:59 | disposition home or self-care (01) ==
LOC: ANHPT 10:45
PROVIDERS: PCP Nurse Practitioner Family; Visit Provider Orthopaedic Surgery
DX: Z47.1 Aftercare following joint replacement surgery (principal); Z96.652 Presence of left artificial knee joint
CPT/HCPCS: 97016; 97110; 97113; 97116; 97140; 97161; 97530

== ENCOUNTER 2024-04-24 07:55 | Outpatient (CLI) | payer OTHER, SELFPAY ==
[2024-04-24 08:29] LABS: Hematocrit 46.1 % (42.0-52.0); Hemoglobin 14.9 g/dL (14.0-18.0); Mean Corpuscular HGB Conc 32.3 g/dl (32-36); Mean Corpuscular Hemoglobin 29.1 pg (26-34); Platelet Count Result 225 k/mm3 (150-375); Red Blood Count 5.12 M/mm3 (4.6-6.20); Red Cell Distribution Width 14.9 % (11.5-14.5); White Blood Count 5.9 K/mm3 (4.5-10.0)
[2024-04-24 08:43] LABS: Alanine Aminotransferase 18 U/L (6-50); Albumin Level 4.5 g/dL (3.5-5.1); Alkaline Phosphatase 48 U/L (38-126); Anion Gap 6 mmol/L (4-12); Aspartate Amino Transferase 26 U/L (17-59); Bilirubin,Total 0.4 mg/dL (0.2-1.3); Blood Urea Nitrogen 17 mg/dL (9-20); Calcium 9.7 mg/dL (8.4-10.2); Carbon Dioxide 31 mmol/L (22-30); Chloride 101 mmol/L (98-107); Cholesterol 168 mg/dL (0-200); Estimated Glomerular Filt Rate > 60; Glucose 105 mg/dL (65-110); HDL Direct 46 mg/dL; Sodium 138 mmol/L (137-145); Triglycerides 67 mg/dL (<150)
[2024-04-24 08:54] LABS: LDL Cholesterol Direct 86 mg/dL
[2024-04-24 09:10] LABS: Hemoglobin A1C 6.1 % (<5.7)
[2024-04-24 09:11] LABS: Prostate Specific Antigen 1.5 ng/mL (< OR = 4.0)
[2024-04-24 09:21] LABS: Creatinine Urine 275.4 mg/dL
[2024-04-24 09:25] LABS: MALB Creatinine Ratio 5.7 mg/g (0-30); Microalbumin Urine Random 15.6 mg/L (0-16.7)
[2024-04-24 09:37] LABS: Vitamin D 25 Hydroxy 51.2 ng/mL
== END 2024-04-24 07:56 | disposition home or self-care (01) ==
PROVIDERS: PCP Nurse Practitioner Family; Referring Provider Nurse Practitioner Family; Visit Provider Urology
DX: E29.1 Testicular hypofunction (principal); R79.89 Other specified abnormal findings of blood chemistry; M79.646 Pain in unspecified finger(s); M17.12 Unilateral primary osteoarthritis, left knee; N52.9 Male erectile dysfunction, unspecified; I10 Essential (primary) hypertension; I49.1 Atrial premature depolarization; E66.9 Obesity, unspecified; K21.9 Gastro-esophageal reflux disease without esophagitis; G47.33 Obstructive sleep apnea (adult) (pediatric); E55.9 Vitamin D deficiency, unspecified; J30.2 Other seasonal allergic rhinitis; E11.9 Type 2 diabetes mellitus without complications; Z12.5 Encounter for screening for malignant neoplasm of prostate
CPT/HCPCS: 36415; 80053; 80061; 82043; 82306; 82670; 83036; 84153; 85027; G0103

== ENCOUNTER 2024-04-30 13:39 | Outpatient (CLI) | payer OTHER, SELFPAY ==
[2024-04-30 14:15] LABS: Hematocrit 44.3 % (42.0-52.0); Hemoglobin 14.5 g/dL (14.0-18.0)
== END 2024-04-30 13:40 | disposition home or self-care (01) ==
LOC: ANHLAB 13:41
PROVIDERS: PCP Nurse Practitioner Family; Visit Provider Nurse Practitioner Family
DX: E29.1 Testicular hypofunction (principal)
CPT/HCPCS: 36415; 82670; 85014; 85018

== ENCOUNTER 2024-05-14 16:21 | Outpatient (CLI) | payer OTHER, SELFPAY ==
[2024-05-14 16:44] LABS: Hematocrit 43.7 % (42.0-52.0); Hemoglobin 14.6 g/dL (14.0-18.0)
[2024-05-18 09:04] LABS: Testosterone Total 344 ng/dL (250-1100)
== END 2024-05-14 16:22 | disposition home or self-care (01) ==
LOC: ANHLAB 16:24
PROVIDERS: PCP Nurse Practitioner Family; Visit Provider Nurse Practitioner Family
DX: E29.1 Testicular hypofunction (principal)
CPT/HCPCS: 36415; 82670; 84403; 85014; 85018

== ENCOUNTER 2024-08-26 16:46 | Emergency (ER) | payer OTHER, SELFPAY ==
--- NOTE | ~2024-08-26 | XR_ITS ---
HISTORY: right lateral rib pain, no injury COMPARISON: None TECHNIQUE: 3 views of the right ribs were performed FINDINGS: No acute displaced fracture is appreciated. The adjacent right lung is unremarkable. Bone mineralization is age-appropriate. IMPRESSION: No acute displaced right rib fracture, as detailed above. Reviewed, dictated and finalized at location A.
--- NOTE | 2024-08-26 16:50 | ED_ITS ---
HPI - URI/Sore Throat General Chief Complaint: Unspecified Stated Complaint: right rib pain Time Seen by Provider: 08/26/24 16:49 Source: patient Mode of arrival: ambulatory Limitations: no limitations History of Present Illness HPI Narrative: Mr. Monzon is a 64-year-old male patient presenting to the clinic today with complaints of right-sided lateral rib pain x2 weeks. He denies any known injury. Denies any URI symptoms or coughing. No chest pain. Denies any shortness of breath. States pain started 2 weeks ago cramping pain and has been constant. Pain does not radiate. MD elicited complaint: sore throat and nasal congestion Related Data Home Medications ?Medication ?Instructions ?Recorded ?Confirmed ?Last Taken ?Type cholecalciferol (vitamin D3) 125 5,000 unit PO DAILY 07/12/19 08/26/24 Unknown History mcg (5,000 unit) capsule multivitamin 1 tablet PO DAILY 07/12/19 08/26/24 Unknown History niacin 500 mg capsule,extended 500 mg PO .QHS 07/12/19 08/26/24 Unknown History release turmeric root extract 500 mg 500 mg PO DAILY 07/12/19 08/26/24 Unknown History capsule coQ10 (ubiquinol) 100 mg capsule 100 mg PO HS 12/12/23 08/26/24 Unknown History sildenafil 50 mg tablet (Viagra) 50 mg PO PRN PRN sexual activity 01/31/24 08/26/24 Unknown History Allergies Allergy/AdvReac Type Severity Reaction Status Date / Time No Known Allergies Allergy Verified 08/26/24 17:00 Review of Systems Review of Systems: Pertinent positives per HPI. Patient denies any fever, chills, rash, headache, visual changes, dizziness, cough, shortness of breath, chest pain, palpitations, nausea, vomiting, diarrhea, constipation, abdominal pain, or any urinary issues. [facility] Past Medical History Medical History Hypogonadism Other fatigue Thumb pain Shoulder impingement syndrome Bilateral shoulder region arthritis Degenerative arthritis of left knee Left knee injury Obstructive sleep apnea (~10/2020) GERD (gastroesophageal reflux disease) Essential hypertension Dyslipidemia IFG (impaired fasting glucose) Surgical History Surgical History Status post total left knee replacement DOS 12/30/23- Dr. Staton Family History Family History Grandparent Diabetes mellitus Mother Diabetes mellitus Family history of obesity Hypertension Family history of kidney disease Other Family history of malignant neoplasm Social History Social History Smoking status: Never smoker Second hand tobacco smoke exposure: No Additional smoking assessment comments: DENIES ANY FORM OF TOBACCO USE Alcohol intake: current Drinks per week: 14 Substance use: former Substance use type: marijuana Last use: 15 YRS AGO Do You Feel Safe in your Home?: Yes Lack of Transportation: No Lack of Food: Never True Current Housing: I Have Housing Concerned About Future Housing: No Difficulty Paying Gas/Electric Bills: No Difficulty Paying for Meds: No 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on: High School Diploma/GED Difficulty w/ Childcare or Family Care: No Living arrangements: with family 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ation 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 There is no relevant family history pertinent to the patient complaint. Exam Narrative: General: Well-developed, well nourished, in no apparent distress Head: Normocephalic, atraumatic Eyes: Pupils equally round and reactive to light bilaterally, EOM intact, sclera and conjunctive clear, no discharge, lids normal Ears: TMs intact and clear, ear canals clear, no drainage, grossly hearing normal. Nose: Nares patent, no discharge, no inflammation, no sinus tenderness. Mouth: Oral pharynx without lesions or masses, good dentition, MMM. Neck: Supple, trachea midline, no enlargement of anterior or posterior cervical nodes, no thyroid masses or goiter palpable. Chest wall: Tenderness to palpation over the right lateral ribs, even rise and fall of the chest wall, no bruising or swelling noted Cardio: Regular rate and rhythm, s1 and s2 normal, no murmur appreciated. Resp: Clear to auscultation bilaterally, no rhonchi, rales, wheezing or rubs Course Course Emergency Course: Portions of this record may have been created with voice recognition software. Level of Care: Express Care Visit Vital Signs Vital signs: Vital Signs Temperature 36.9 C 08/26/24 16:58 Pulse Rate 72 08/26/24 16:58 Respiratory Rate 16 08/26/24 16:58 Blood Pressure 123/81 08/26/24 16:58 Pulse Oximetry 99 08/26/24 16:58 Oxygen Delivery Room Air 08/26/24 16:58 Temperature 36.9 C 08/26/24 16:58 Pulse Rate 72 08/26/24 16:58 Respiratory Rate 16 08/26/24 16:58 Blood Pressure 123/81 08/26/24 16:58 Pulse Oximetry 99 08/26/24 16:58 Oxygen Delivery Room Air 08/26/24 16:58 Vital signs reviewed MDM - URI/Sore Throat MDM Narrative Medical decision making narrative: At the time of visit patient is resting comfortably on the exam table. Patient appears to be nontoxic. Diagnostics: Right ribs x-ray was performed and was negative for any sign of fracture or malalignment. Plan: I suspect patient has right rib pain. Prescription for baclofen was sent to the pharmacy. Patient is already taking NSAIDs. Recommend keeping patient's appointment with his primary care doctor if symptoms do not improve. Supportive measures were discussed with the patient and they voiced understanding discharge instructions and agrees to treatment plan. Return precautions reviewed Differential Diagnosis Differential diagnosis: Likely upper respiratory infection, otitis media, sinusitis, viral infection, bronchitis, influenza, pharyngitis and other (COVID) Discharge Plan Discharge Clinical Impression: Rib pain on right side Patient Disposition: Home, Self-Care Condition: Stable Instructions: Antibiotic Form, Rib Contusion (ED) Additional Instructions: X-rays negative for any fracture or malalignment of the right ribs Take any prescription medication only as prescribed-baclofen Be mindful of sedation precautions given to you if taking a muscle relaxer. May use heat or ice to the affected area May use blue emu, lidocaine patches, or asper cream to affected area- do not apply heat or ice directly over cream- can cause burn. Follow up with your PCP in 3-5 days if symptom persist. Patient Language: Korean Prescriptions: New baclofen 10 mg tablet 10 mg PO TID PRN (Reason: muscle spasm) 7 Days Qty: 21 0RF No Action diltiazem HCl 90 mg capsule,extended release 12 hr See Rx Instructions .ROUTE .COMPLEX Qty: 360 0RF Dose Instruction: Take 2 capsules by mouth twice daily Rx Instructions: Take 2 capsules by mouth twice daily coQ10 (ubiquinol) 100 mg Capsule 100 mg PO HS sildenafil [Viagra] 50 mg tablet 50 mg PO PRN PRN (Reason: sexual activity) Rx Instructions: administer 30 minutes to 4 hours before activity multivitamin Tablet 1 tablet PO DAILY niacin 500 mg capsule, extended release 500 mg PO .QHS turmeric root extract 500 mg capsule 500 mg PO DAILY cholecalciferol (vitamin D3) 125 mcg (5,000 unit) capsule 5,000 unit PO DAILY lidocaine 5 % adhesive patch,medicated 1 patch topical DAILY Qty: 15 0RF Rx Instructions: leave on most painful area for up to 12 hrs rosuvastatin [Crestor] 5 mg tablet 5 mg PO DAILY Qty: 90 1RF Patient Comments: AT HS losartan-hydrochlorothiazide 100-25 mg tablet 1 tablet PO DAILY Qty: 90 1RF acetaminophen [Tylenol Arthritis Pain] 650 mg tablet extended release 1,300 mg PO Q12H PRN (Reason: Pain) Qty: 60 2RF meloxicam 7.5 mg tablet 7.5 mg PO BID Qty: 60 2RF omeprazole 20 mg capsule,delayed release(DR/EC) 20 mg PO DAILY Qty: 90 1RF Follow-up/Referrals: Ynes Ocasio APRN [Primary Care Provider] - Time of Disposition: 17:49 Quality NIHSS Nursing Documentation ED NIHSS nursing documentation: reviewed/agree
[2024-08-26 16:58] VITALS: BP 123/81; PULSE 72; RESP 16; TEMP 36.9; O2SAT 99
== END 2024-08-26 17:59 | disposition home or self-care (01) ==
PROVIDERS: Emergency Provider Nurse Practitioner Family; PCP Nurse Practitioner Family
DX: R07.81 Pleurodynia (principal); I10 Essential (primary) hypertension; E78.5 Hyperlipidemia, unspecified; Z79.899 Other long term (current) drug therapy
CPT/HCPCS: 71100; 99213; G0463

== ENCOUNTER 2024-09-10 14:42 | Outpatient (CLI) | payer OTHER, SELFPAY ==
--- NOTE | ~2024-09-10 | XR_ITS ---
Thoracic spine: Clinical Indication: Radiculopathy AP and lateral views were performed. No fracture is seen. There is normal alignment of the vertebrae. There is mild degenerative disc leola rowing at the mid thoracic spine. Paravertebral soft tissues appear normal. Impression: Mild degenerative change, as above. Reviewed, dictated and finalized at location . Impression: Mild degenerative change, as above.
--- NOTE | ~2024-09-10 | XR_ITS ---
EXAMINATION: XR chest 2V 09/10/2024 15:03 INDICATION: Pleurodynia PROCEDURE: Two-view chest COMPARISON: 08/26/2024 FINDINGS: The lungs are clear. The cardiomediastinal silhouette is within normal limits. There are no pleural effusions. There is no pneumothorax suspected. IMPRESSION: 1: NO ACUTE CARDIOPULMONARY DISEASE. Reviewed, dictated and finalized at location A.
--- OUTSIDE RECORDS SUMMARY | 2024-09-10 14:48 | XMS_ITS | Clinical Summary ---
Author Organization [facility] Address [facility] [address] [place] [address] Care Team Providers Care Controlled Atmospheric Furnace Brazer Name Role Phone Paula Gonzalez MD Primary Care Provider Social History Tobacco Use Types Packs/Day Years Used Date Smoking Tobacco: Never Assessed Sex and Gender Information Value Date Recorded Sex Assigned at Not on file Legal Sex Male 8:28 PM CDT Gender Identity Not on file Sexual Orientation Not on file Plan of Treatment Health Maintenance Due Date Last Done Comments Colorectal Cancer Screening Colonoscopy (10 Years) 1961 Annual Physical 02/04/1964 Hepatitis C 1979 DTaP, Tdap and Td Vaccines ( 1 - Tdap) 02/04/1980 Zoster Vaccines (1 of 2) 2011 COVID-19 Vaccine (2023-2 5 season) 2024 Influenza Adult (#1) 2024 RSV Immunization or 60+ Years (1 - 1-dose 75+ series) 02/04/2036 Meningococcal B Vaccine Aged Out No l onger eligible based on patient's age to complete this topic Meningococcal Vaccine Aged Out No desiree karlie eligible based on patient's age to complete this topic Pneumococcal Vaccine: Pediat rics (0 to 5 Years) and At-Risk Patients (6 to 64 Years) Aged Out No longer eligible b ased on patient's age to complete this topic RSV Immunizations Under 20 Months Aged Out No longer eligible based on patient's age to complete this topic Care Teams Controlled Atmospheric Furnace Brazer Relationship Specialty Start Date End Date Paula Gonzalez MD PCP - General 06/25/14
--- OUTSIDE RECORDS SUMMARY | 2024-09-10 14:48 | XMS_ITS | Clinical Summary ---
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 Gender Identity Not on file Sexual Orientation Not on file Plan of Treatment Health Maintenance Due Date Last Done Comments Hepatitis C Virus (HCV) Screening 1961 TdaP Immunization 1961 Colonoscopy 2006 Colorectal Cancer Screening 2006 Cologuard 2011 Immunochemical Fecal Occult Blood 2011 Pneumococcal Immunization (5 0+ years) (1 of 1 - PCV) 2011 Zoster Immunization (1 of 2) 2011 PSA Discussion 02/04/2016 Influenza Immunization (#1) 2024 SARS-COV-2 Immunization ( - 2023-25 season) 2024 Respiratory Syncytial Virus (RSV) Immunization (Adult) (1 - 1-dose 75+ series) 02/04/2036 Hepatitis B Immunization Aged Out No longer eligible based on patient's age to complete this topic Meningococcal Immunization (ACWY) Aged Out No longer eligible based on patient's age to complete this topic Pneumococcal Immunization Combined Aged Out No longer eligible based on patient's age to complete this topic Rotavirus Immunization Aged Out No lo nger eligible based on patient's age to complete this topic
--- OUTSIDE RECORDS SUMMARY | 2024-09-10 14:48 | XMS_ITS | Clinical Summary ---
Author Organization [facility] Address [address] [place] [address] Care Team Providers Care Lining Vamper Name Role Phone Casimiro Davis MD Primary Care Provider [phone] Source Comments [facility],non-owned Affiliates and Associated Physician Practices is amultiple site organization consisting of ambulatory clinics and hospital sitesin [place], [place], [place] and [place]. This disclosure is being madepursuant to the Care Everywhere program and may not contain all information available regarding this patient. Last updated 18.[facility] Allergies Active Allergy Reactions Criticality Noted Date Comments Amoxicillin Vomiting 02/26/2024 Medications * Be aware that medications may not be up to date on this document. Alwaysverify current medications with the patient. Medication Sig Dispensed Refills Start Date End Date Status losartan-hydroCHLOR Othiazide (Hyzaar) 100-25 MG tablet Take 1 (one) tablet by mouth once daily 05/26/2022 Active dilTIAZem ER 12hr 90 MG capsule Take 1 (one) capsule by mouth 2 times daily 05/26/2022 Active rosuvastatin (Crestor) 5 MG tablet Take 1 (one) tablet by mouth once daily 05/26/2022 Active omeprazole (PriLOSEC) 40 MG capsule Take 1 (one) capsule by mouth once daily 05/28/2022 Active Multiple Vitamin (MULTIVITAMIN ADULT PO) Take 1 tablet by mouth once daily Active Turmeric 500 MG Take 1 tablet by mouth once daily Active niacin, Immediate Release, 500 MG tablet Take 1 (one) tablet by mouth at bedtime Active aspirin EC (Ecotrin) 81 MG tablet Take 1 (one) tablet by mouth once daily Active tadalafil (Cialis) 20 MG tablet Take 1 (one) tablet by mouth once daily as needed 03/02/2023 Active Testim 50 MG/5GM (1%) gel Use 5 (five) g as instructed as needed 10/31/2023 Active Vitamin D, Cholecalciferol, 25 MCG (1000 UT) CAPS Active chlorhexidine (Peridex) 0.12 % solution Swish and spit 15 mL 3 times daily 473 mL 02/23/2024 Active oxyCODONE, immediate release, (Roxicodone) 5 MG tabletIndications:S alivary stones,Sialoadeniti s of submandibular gland Take 1 (one) tablet by mouth every 4 hours as needed for Pain 8 tablet 03/01/2024 Active Additional Information Patient not taking.Reported on 03/04/2024 acetaminophen (Tylenol) 325 MG tablet Take 2 (two) tablets by mouth every 6 hours as needed for Fever or Pain Maximum allowable Acetaminophen amount = 4 Grams (4000 mg) / 24 hours. 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 (FLUCELVAX QUADRIVALENT; 6MO+) (CCIIV4) 05/24/2023 ZOSTER VACCINE, LIVE 12/20/2022 Zoster Hzv Vacc Recombinant Inj Im 02/19/2023 Family History Medical History Relation Name Comments Cancer - Other Father Arthritis - Rheumatoid Mother Hypertension Mother Cirrhosis Sister Hypertension Sister Relation Name Status Comments Father Mother Sister Social History Tobacco Use Types Packs/Day Years Used Date Smoking Tobacco: Former Cigarettes 1 2009 Smokeless Tobacco: Never Tobacco Cessation:Counseling Given: Not Answered Alcohol Use Standard Drinks/Week Comments Not Currently 0 (1 standard drink = 0.6 oz pur e alcohol) Sex and Gender Information Value Date Recorded Sex Assigned at Not on file Gender Identity Not on file Sexual Orientation Not on file Last Filed Vital Signs Vital Sign Reading Time Taken Comments Blood Pressure 151/90 03/16/2024 9:11 AM CDT Pulse 90 03/16/2024 9:11 AM CDT Temperature 37 C (98.6 F) 03/01/2024 4:29 AM CDT Respiratory Rate 18 03/01/2024 4:29 AM CDT Oxygen Saturation 97% 03/01/2024 8:42 AM CDT Inhaled Oxygen Concentration - - Weight 108.4 kg (239 lb) 03/16/2024 9:11 AM CDT Height 182.9 cm (6') 03/16/2024 9:11 AM CDT Body Mass Index 32.41 03/16/2024 9:11 AM CDT Plan of Treatment Health Maintenance Due Date Last Done Comments COLOGUARD (AGES 45-75) - COLON CA SCREENING 1961 COLON MONITORING 1961 COLONOSCOPY - COLON CA SCREENING 1961 CT COLONOGRAPHY - COLON CA SCREENING 1961 Colorectal Cancer Screening 1961 FIT - COLON CA SCREENING 1961 FLEX SIG - COLON CA SCREENING 1961 HIV SCREENING 02/04/1976 DTAP/TDAP/TD VACCINES (1 - Tdap) 02/04/1980 PNEUMOCOCCAL VACCINE 50+ (1 of 1 - PCV) 2011 ZOSTER VACCINE (3 of 3) 04/16/2023 02/19/2023, 12/20 COVID-19 VACCINE (5 - season) 2024 05/24/2023, 07/01/2021, 11/19/2020, Additional history exists INFLUENZA VACCINE (#1) 2024 05/24/2023 DEPRESSION SCREENING 06/16/2024 SCREENING FOR DIABETES 03/01/2027 , 02/29/2024, 02/27/2024, Additional history exists Respiratory Syncytial Virus (RSV) Vaccine Pt: or over 60 yrs (1 - 1-dose 75+ series) 02/04/2036 HEPATITIS C SCREENING Completed 02/26/2024 HEPATITIS B VACCINE Aged Out No longe r eligible based on patient's age to complete this topic HIB VACCINE Aged Out No longer eligi ble based on patient's age to complete this topic HPV VACCINE Aged Out No longer eligi ble based on patient's age to complete this topic MENINGOCOCCAL (Group B) VACCINE SHARED DECISION-MAKING Aged Out No longer eligible based on patient's age to complete this topic MENINGOCOCCAL GROUPS A/C/Y/W VACCINE Aged Out No longer eligible based on patient's age to complete this topic Procedures Procedure Name Priority Date/Time Associated Diagnosis Comments COMPREHENSIVE METABOLIC PANEL AM Draw 03/01/2024 9:07 AM CDT HEPATITIS C AB SCREEN RFLX NAAT QUANT STAT 02/26/2024 4:21 PM CDT from Last 3 Months or Most Recently Relevant to Health Maintenance Results * (ABNORMAL) COMPREHENSIVE METABOLIC PANEL (03/01/2024 9:07 AM CDT) BUN 11 7 - 26 mg/dL 03/01/2024 12:52 PM [facility] Creatinine 0.93 0.71 - 1.16 mg/dL 03/01/2024 12:52 PM [facility] Sodium 140 136 - 145 mmol/L 03/01/2024 12:52 PM [facility] Potassium 3.6 3.5 - 4.5 mmol/L 03/01/2024 12:52 PM [facility] Chloride 108(H) 98 - 107 mmol/L 03/01/2024 12:52 PM [facility] CO2 21(L) 22 - 29 mmol/L 03/01/2024 12:52 PM [facility] Glucose 101 70 - 115 mg/dL 03/01/2024 12:52 PM [facility] Calcium 9.2 8.4 - 10.2 mg/dL 03/01/2024 12:52 PM [facility] Protein Total 7.4 6.0 - 8.3 g/dL 03/01/2024 12:52 PM [facility] Albumin 3.3(L) 3.4 - 5.0 g/dL 03/01/2024 12:52 PM [facility] Bilirubin Total 0.4 0.2 - 1.2 mg/dL 03/01/2024 12:52 PM [facility] Alkaline Phosphatase 78 40 - 150 U/L 03/01/2024 12:52 PM [facility] ALT 24 5 - 55 U/L 03/01/2024 12:52 PM [facility] AST 24 5 - 34 U/L 03/01/2024 12:52 PM [facility] Anion Gap 11 6 - 16 03/01/2024 12:52 PM [facility] BUN/Creatinine Ratio 12 7 - 23 03/01/2024 12:52 PM [facility] Osmolality Calculated 290 275 - 295 mOsm/kg 03/01/2024 12:52 PM [facility] Albumin/Globulin Ratio 0.8(L) 1.1 - 2.3 03/01/2024 12:52 PM [facility] eGFR by CKD-EPI >90 >=90 mL/min/1.7 3 m2 03/01/2024 12:52 PM [facility] Blood BLOOD SPECIMEN / Unknown Lab Venipuncture / Unknown 03/01/2024 9:07 AM CDT 03/01/2024 9:38 AM T Tomi Luna MD LAB - CHEMISTRY O RDERABLES [facility] [address] [place] [address], [facility] [email or web address]] [phone] * HEPATITIS C AB SCREEN RFLX NAAT QUANT (02/26/2024 4:21 PM CDT) Hepatitis C Antibody Non-react jade Non-reac tive 02/26/2024 5:48 PM [facility] Comment:Hepatitis C Antibody screen indicates no serologic evidence of past or current infection with Hepatitis C Virus. Patients with unexplained liver disease who are immunocompromised or suspected of having acute Hepatitis C infection may benefit from Nucleic Acid Test (AMARI) for Hepatitis C Viral RNA to confirm Hepatitis C status. Blood BLOOD SPECIMEN / Unknown Venipuncture / Unknown 02/26/2024 4:21 PM CDT 02/26/2024 4:37 PM CDT Frank Cunningham MD LAB - CHEMISTRY ISIAH HOLLIDAY [facility] Organization Address City/State/[facility] Co de Phone Number [facility] [address] [place] [address], [facility] [[email or web address]] [phone] from Last 3 Months or Most Recently Relevant to Health Maintenance Advance Directives * Full Code (Latest Code Status on File) Date Activated Date Inactivated Comments 02/26/2024 6:07 PM 03/01/2024 1:36 PM Care Teams Lining Vamper Relationship Specialty Start Date End Date Casimiro Davis MD [address] [place] [address] PCP - General Family Medicine 01/29/24
== END 2024-09-10 14:43 | disposition home or self-care (01) ==
PROVIDERS: PCP Nurse Practitioner Family; Visit Provider Nurse Practitioner Family
DX: M54.10 Radiculopathy, site unspecified (principal); R05.9 Cough, unspecified; R07.81 Pleurodynia
CPT/HCPCS: 71046; 72070

== ENCOUNTER 2024-11-05 08:23 | Outpatient (CLI) | payer OTHER, SELFPAY ==
--- OUTSIDE RECORDS SUMMARY | 2024-11-05 08:26 | XMS_ITS | Clinical Summary ---
Author Organization 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
--- OUTSIDE RECORDS SUMMARY | 2024-11-05 08:27 | XMS_ITS | Clinical Summary ---
Author Organization [facility] Address [address] 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 This disclosure is being madepursuant to the Care Everywhere program and may not contain all information available regarding this patient. Last updated 18.[facility] Allergies Active Allergy Reactions Criticality Noted Date Comments Amoxicillin Vomiting 02/26/2024 Medications * Be aware that medications may not be up to date on this document. Alwaysverify current medications with the patient. losartan-hydroCHL OROthiazide (Hyzaar) 100-25 MG tablet Take 1 (one) tablet by mouth once daily 05/26/20 22 Active dilTIAZem ER 12hr 90 MG capsule Take 1 (one) capsule by mouth 2 times daily 05/26/20 22 Active rosuvastatin (Crestor) 5 MG tablet Take 1 (one) tablet by mouth once daily 05/26/20 22 Active omeprazole (PriLOSEC) 40 MG capsule Take 1 (one) capsule by mouth once daily 05/28/20 22 Active Multiple Vitamin (MULTIVITAMIN ADULT PO) Take [...] tablet by mouth once daily as needed 03/02/20 23 Active Testim 50 MG/5GM (1%) gel Use 5 (five) g as instructed as needed 10/31/19 24 Active Vitamin D, Cholecalciferol, 25 MCG (1000 UT) CAPS Active chlorhexidine (Peridex) 0.12 % solution Swish and spit 15 mL 3 times daily 473 mL 02/23/20 24 Active oxyCODONE, immediate release, (Roxicodone) 5 MG tabletIndications :Salivary stones,Sialoadeni tis of submandibular gland Take 1 (one) tablet by mouth every 4 hours as needed for Pain 8 tablet 03/01/20 24 Active Additional Information Patient not taking.Reported on 03/04/2024 acetaminophen (Tylenol) 325 MG tablet Take 2 (two) tablets by mouth every 6 hours as needed for Fever or Pain Maximum allowable Acetaminophen amount = 4 Grams (4000 mg) / 24 hours. 30 tablet 03/01/20 24 Active Additional Information Patient not taking.Reported on 03/16/2024 ibuprofen (Motrin) 600 MG tablet Take 1 (one) tablet by mouth every 6 hours as needed for Pain 15 tablet 03/01/20 24 Active meloxicam (Mobic) 7.5 MG tablet Take 1 (one) tablet by mouth once daily 03/15/20 24 Active ondansetron, disintegrating, (Zofran ODT) 8 MG tablet Take 1 (one) tablet by mouth every 6 hours 03/05/20 24 Active Active Problems Problem Noted Date Diagnosed Date Hypokalemia 02/26/2024 Salivary gland infection 02/26/2024 Chest pain, unspecified type 02/26/2024 Sialoadenitis of submandibular gland 06/07/2022 Salivary stones 06/07/2022 Immunizations Immunization Administration Dates Next Due INFLUENZA VACCINE, CELL [...] at Not on file Legal Sex Male 5:23 AM [employer]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[employer] Gender Identity Not on file Sexual Orientation [...] 2024 05/24/2023, 07/01/2021, 11/19/2020, Additional history exists DEPRESSION SCREENING 06/16/2024 INFLUENZA VACCINE (Season Ended) 2025 05/24/2023 SCREENING FOR DIABETES 03/01/2027 4, 02/29/2024, 02/27/2024, Additional history exists Respiratory Syncytial [...] 7 - 26 mg/dL 03/01/2024 12:52 PM [facility] Creatinine 0.93 0.71 - 1.16 mg/dL 03/01/2024 12:52 PM [facility] Sodium 140 136 - 145 mmol/L 03/01/2024 12:52 PM [facility] Potassium 3.6 3.5 - 4.5 mmol/L 03/01/2024 12:52 PM [facility] Chloride 108(H) 98 - 107 mmol/L 03/01/2024 12:52 PM [facility] CO2 21(L) 22 - 29 mmol/L 03/01/2024 12:52 PM [facility] Glucose 101 70 - 115 mg/dL 03/01/2024 12:52 PM [facility] Calcium 9.2 8.4 - 10.2 mg/dL 03/01/2024 12:52 PM [facility] Protein Total 7.4 6.0 - 8.3 g/dL 03/01/2024 12:52 PM [facility] Albumin 3.3(L) 3.4 - 5.0 g/dL 03/01/2024 12:52 PM [facility] Bilirubin Total 0.4 0.2 - 1.2 mg/dL 03/01/2024 12:52 PM [facility] Alkaline Phosphatase 78 40 - 150 U/L 03/01/2024 12:52 PM [facility] ALT 24 5 - 55 U/L 03/01/2024 12:52 PM [facility] AST 24 5 - 34 U/L 03/01/2024 12:52 PM [facility] Anion Gap 11 6 - 16 03/01/2024 12:52 PM [facility] BUN/Creatinine Ratio 12 7 - 23 03/01/2024 12:52 PM [facility] Osmolality Calculated 290 275 - 295 mOsm/kg 03/01/2024 12:52 PM [facility] Albumin/Globulin Ratio 0.8(L) 1.1 - 2.3 03/01/2024 12:52 PM [facility] eGFR by CKD-EPI >90 >=90 mL/min/1.7 3 m2 03/01/2024 12:52 PM [facility] Blood BLOOD SPECIMEN / Unknown Lab Venipuncture / Unknown 03/01/2024 9:07 AM CDT 03/01/2024 9:38 AM T us Tomi Luna MD LAB - CHEMISTRY ORDERABLE S Final Result [facility] [address] [place] [id number], [facility] [phone] * HEPATITIS C AB SCREEN RFLX NAAT QUANT (02/26/2024 4:21 PM CDT) Hepatitis C Antibody Non-react jade Non-reac tive 02/26/2024 5:48 PM [facility] Comment:Hepatitis C Antibody screen indicates no serologic [...] CDT Frank Cunningham MD LAB - CHEMISTRY ORDERABLES nal Result [facility] [address] [place] [address], [facility] [phone] from Last 3 Months or Most Recently Relevant to Health Maintenance Insurance HEALTH CARE Advance Directives * Full Code (Latest Code Status on File) Date Activated Date Inactivated Comments 02/26/2024 6:07 PM 03/01/2024 1:36 PM Care Teams Shipping And Receiving Material Handler Relationship Specialty Start Date End Date Casimiro Davis MD [address] [place], [place] [id number] PCP - General Family Medicine 01/29/24
[2024-11-05 09:13] LABS: Hematocrit 47.9 % (42.0-52.0); Hemoglobin 15.4 g/dL (14.0-18.0); Mean Corpuscular HGB Conc 32.2 g/dl (32-36); Mean Corpuscular Hemoglobin 29.5 pg (26-34); Mean Corpuscular Volume 91.8 fl (80-100); Mean Platelet Volume 10.6 fl (7.4-10.4); Platelet Count Result 166 k/mm3 (150-375); Red Blood Count 5.22 M/mm3 (4.6-6.20); Red Cell Distribution Width 14.3 % (11.5-14.5)
[2024-11-05 09:23] LABS: Alanine Aminotransferase 29 U/L (6-50); Albumin Level 4.3 g/dL (3.5-5.1); Alkaline Phosphatase 52 U/L (38-126); Anion Gap 9 mmol/L (4-12); Aspartate Amino Transferase 31 U/L (17-59); Bilirubin,Total 0.6 mg/dL (0.2-1.3); Blood Urea Nitrogen 18 mg/dL (9-20); Calcium 9.2 mg/dL (8.4-10.2); Carbon Dioxide 29 mmol/L (22-30); Chloride 100 mmol/L (98-107); Cholesterol 199 mg/dL (0-200); Estimated Glomerular Filt Rate > 60; Glucose 105 mg/dL (65-110); HDL Direct 57 mg/dL; Sodium 138 mmol/L (137-145); Triglycerides 83 mg/dL (<150)
[2024-11-05 09:34] LABS: LDL Cholesterol Direct 103 mg/dL
[2024-11-05 09:43] LABS: Creatinine Urine 174.7 mg/dL
[2024-11-05 09:46] LABS: MALB Creatinine Ratio 4.5 mg/g (0-30); Microalbumin Urine Random 7.8 mg/L (0-16.7)
== END 2024-11-05 08:24 | disposition home or self-care (01) ==
LOC: ANHLAB 08:24
PROVIDERS: PCP Nurse Practitioner Family; Visit Provider Nurse Practitioner Family
DX: E11.9 Type 2 diabetes mellitus without complications (principal); H61.23 Impacted cerumen, bilateral; K11.5 Sialolithiasis; J30.9 Allergic rhinitis, unspecified; R79.89 Other specified abnormal findings of blood chemistry; M17.12 Unilateral primary osteoarthritis, left knee; K64.8 Other hemorrhoids; N52.9 Male erectile dysfunction, unspecified; E78.5 Hyperlipidemia, unspecified; Z72.89 Other problems related to lifestyle; I10 Essential (primary) hypertension; I49.1 Atrial premature depolarization; E66.9 Obesity, unspecified; K21.9 Gastro-esophageal reflux disease without esophagitis; G47.33 Obstructive sleep apnea (adult) (pediatric); E55.9 Vitamin D deficiency, unspecified; J30.2 Other seasonal allergic rhinitis
CPT/HCPCS: 36415; 80053; 80061; 82043; 82306; 83036; 85027

== ENCOUNTER 2024-11-26 14:00 | Outpatient (RCR) | payer OTHER, SELFPAY ==
--- NOTE | 2024-11-12 14:42 | OPREHPOC ---
Outpatient Therapy Plan of Care This is a Multidisciplinary Plan of Care that may contain components documented by all disciplines (PT, OT, and ST.) PT Problem 1 PT Problem #1 Knowledge Deficit PT Goal 1 Goal / Goal Update *independent with HEP Target Visit 6 PT Problem 2 PT Problem #2 Pain PT Goal 1 Goal / Goal Update 1* pt report pain rating at worst of 4/10 L shoulder 2* pt report with sleeping, 3 hour tolerance/ at time 3* radicular pain into L elbow at worst Target Visit 6 PT Problem 3 PT Problem #3 Impaired Functional Mobility PT Goal 1 Goal / Goal Update * perform 3x, without an increase in pain reported : L shoulder 1* flexion to 130' 2* abduction to 120' 3* IR- palm to waist PT Problem 4 PT Problem #4 Impaired Strength PT Goal 1 Goal / Goal Update * improve scapular - thoracic strength, pt stand with good posture of shoulder during PT sessions. Target Visit 6
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
--- NOTE | 2025-02-07 09:33 | OPREHPOC ---
Outpatient Therapy Plan of Care This is a Multidisciplinary Plan of Care that may contain components documented by all disciplines (PT, OT, and ST.) PT Problem 1 PT Problem #1 Knowledge Deficit PT Goal 1 Goal / Goal Update *independent with HEP 02-07-25 d/c goals not addressed. pt stopped attended therapy Target Visit 6 PT Problem 2 PT Problem #2 Pain PT Goal 1 Goal / Goal Update 1* pt report pain rating at worst of 4/10 L shoulder 2* pt report with sleeping, 3 hour tolerance/ at time 3* radicular pain into L elbow at worst 02-07-25 d/c goals not addressed. pt stopped attended therapy Target Visit 6 PT Problem 3 PT Problem #3 Impaired Functional Mobility PT Goal 1 Goal / Goal Update * perform 3x, without an increase in pain reported : L shoulder 1* flexion to 130' 2* abduction to 120' 3* IR- palm to waist 02-07-25 d/c goals not addressed. pt stopped attended therapy PT Problem 4 PT Problem #4 Impaired Strength PT Goal 1 Goal / Goal Update * improve scapular - thoracic strength, pt stand with good posture of shoulder during PT sessions. 02-07-25 d/c goals not addressed. pt stopped attended therapy Target Visit 6
--- NOTE | 2025-02-07 09:33 | PTOPDC ---
Assessment and note entered by Itzel Tran, PT Assessment Status Discharge - Pt Not Present ICD-10 Condition Codes (PT) Pain in left shoulder M25.512,Pain in left knee M25.562 Subjective Information pt was not seen this date. Assessment PT Clinical Summary Lukas has received the PT evaluation on November 12 and one treatment session, then stopped attending therapy. Discharge PT. The goals were not addressed. Plan of Care PT Services Indicated No
== END 2025-02-07 11:07 | disposition home or self-care (01) ==
LOC: ANHPT 14:00
PROVIDERS: PCP Nurse Practitioner Family; Visit Provider Orthopaedic Surgery
DX: M25.512 Pain in left shoulder (principal); M25.562 Pain in left knee; Z96.652 Presence of left artificial knee joint
CPT/HCPCS: 97110; 97161; 97530

== ENCOUNTER 2024-12-05 07:37 | Emergency (ER) | payer OTHER, SELFPAY ==
--- NOTE | ~2024-12-05 | CT_ITS ---
CT of the Abdomen and Pelvis: Indication: Left lower quadrant pain and swelling Technique: 2.5 mm axial scans were obtained through the abdomen and pelvis following intravenous adm inistration of 100 cc of Omnipaque 350. Dose reduction technique was used on this scan by utilizing a utomated exposure control and iterative reconstruction technique. The dose-length product (DLP) was 1 072.81 mGy-cm. Findings: Scans through the lung bases are unremarkable. The liver, spleen, pancreas, gallbladder, adrenals and kidneys are within normal limits. There are at herosclerotic calcifications of the aorta. No lymphadenopathy. There is focal wall thickening and pericolonic inflammatory change at the proximal sigmoid colon, com patible with acute diverticulitis. No abscess or free air. No bowel obstruction. Images through the pelvis were performed. Urinary bladder unremarkable. Prostate gland mildly enlarge d. No ascites. Impression: Acute sigmoid diverticulitis. No abscess, free air, or bowel obstruction. Reviewed, dictated and finalized at location . Impression: Acute sigmoid diverticulitis. No abscess, free air, or bowel obstruction.
--- NOTE | ~2024-12-05 | US_ITS ---
Testicular ultrasound with doppler. Indication: Left testicular pain. Technique: Real-time sonography the scrotum was performed. Color flow Doppler and Doppler spectral an alysis were performed. Findings: The testes are homogeneous in echotexture bilaterally. There is no evidence of an intrates ticular mass. The right testis measures 3.6 x 2.3 x 2.6 cm and the left 3.5 x 2.6 x 2.3 cm. There is color-flow seen to both testes. Arterial and venous spectral waveforms are seen in both testes. There is no sonographic evidence of torsion. The head of the epididymis is visualized bilaterally and is within normal limits. Small bilateral hydroceles are present, left larger than right. Probable mild d iffuse scrotal soft tissue edema/wall thickening. Impression: Mild diffuse scrotal wall thickening/edema, nonspecific. No evidence for testicular mass or torsion. Reviewed, dictated and finalized at [facility]. Impression: Mild diffuse scrotal wall thickening/edema, nonspecific. No evidence for testicular mass or torsion.
[2024-12-05 07:44] VITALS: BP 138/92; PULSE 71; RESP 16; TEMP 36.4; O2SAT 99
[2024-12-05 08:56] LABS: Add Urine Microscopic? NO; Appearance Urine Clear (Clear); Bilirubin Urine Negative (Negative); Blood Urine Negative (Negative); Color Urine Yellow (Yellow); Glucose Urine UA Negative (Negative); Ketones Urine Negative (Negative); Leukocyte Esterase Ur Negative LEU/UL (Negative); Nitrate Urine Negative (Negative); Protein Urine Negative (Negative); Specific Grav Ur 1.025 (1.001-1.035); Urobilinogen Urine 0.2 mg/dL (<2.0); pH Urine 5.5 (5.0-9.0)
--- NOTE | 2024-12-05 09:06 | ED.MALEGU ---
HPI - Male Genitourinary General Chief complaint: Urogenital-Male Stated complaint: testicle pain Time Seen by Provider: 12/05/24 08:34 Source: patient Mode of arrival: ambulatory Limitations: no limitations History of Present Illness HPI Narrative: Patient presents with left testicle pain that started 12/02/24 and then migrated into his left lower abdomen and groin. Experiences relief by pressing on the area in his abdomen. This has happened before but no diagnosis of hernia, hydrocele, diverticulitis, etc. No previous abdominal surgeries. Took a meloxicam last night. No penile discharge or bleeding. LBM he did have to strain for. No bloody stool. No fevers/chills. No dysuria. Having urgency/frequency. Not currently sexually active. No hematuria. No rectal pain. Related Data Home Medications ?Medication ?Instructions ?Recorded ?Confirmed ?Last Taken ?Type cholecalciferol (vitamin D3) 125 5,000 unit PO DAILY 07/12/19 12/05/24 12/04/24 History mcg (5,000 unit) capsule multivitamin 1 tablet PO DAILY 07/12/19 12/05/24 12/04/24 History niacin 500 mg capsule,extended 500 mg PO .QHS 07/12/19 12/05/24 12/04/24 History release turmeric root extract 500 mg 500 mg PO DAILY 07/12/19 12/05/24 12/03/24 History capsule coQ10 (ubiquinol) 100 mg capsule 100 mg PO HS 12/12/23 12/05/24 12/04/24 History sildenafil 50 mg tablet (Viagra) 50 mg PO PRN PRN sexual activity 01/31/24 12/05/24 Unknown History testosterone enanthate 75 mg/0.5 150 mg subcut WEEKLY 11/05/24 12/05/24 11/28/24 History mL subcutaneous auto-injector (Xyosted) Allergies Allergy/AdvReac Type Severity Reaction Status Date / Time No Known Allergies Allergy Verified 12/05/24 07:44 [facility] Past Medical History Medical History Bilateral impacted cerumen Hypogonadism Other fatigue Thumb pain Shoulder impingement syndrome Bilateral shoulder region arthritis Degenerative arthritis of left knee Left knee injury Obstructive sleep apnea (~10/2020) GERD (gastroesophageal reflux disease) Essential hypertension Dyslipidemia IFG (impaired fasting glucose) Surgical History Surgical History Status post total left knee replacement DOS 12/30/23- Dr. Staton Family History Family History Grandparent Diabetes mellitus Mother Diabetes mellitus Family history of obesity Hypertension Family history of kidney disease Other Family history of malignant neoplasm Social History Social History Smoking status: Never smoker Second hand tobacco smoke exposure: No Additional smoking assessment comments: DENIES ANY FORM OF TOBACCO USE Alcohol intake: current Drinks per week: 14 Substance use: former Substance use type: marijuana Last use: 15 YRS AGO Do You Feel Safe in your Home?: Yes Lack of Transportation: No Lack of Food: Never True Current Housing: I Have Housing Concerned About Future Housing: No Difficulty Paying Gas/Electric Bills: No Difficulty Paying for Meds: No 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on: High School Diploma/GED Difficulty w/ Childcare or Family Care: No Living arrangements: with family 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ation 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 HEAD: Normocephalic, atraumatic. EYES: Non injected, non icteric ENT: Nares clear, no rhinorrhea or epistaxis. Gross auditory acuity intact. NECK: Supple. No meningismus. CHEST: Speaking in full sentences. No respiratory distress. HEART: Regular rate and rhythm. . ABDOMEN: Soft, nondistended. LLQ TTP. No rigidity. Not peritoneal. : Left scrotal swelling. No transverse lie of testicles. No relief or exacerbation of pain with scrotal elevation/manipulation. No penile discharge/swelling/blood at meatus. No bilateral inguinal lymphdenopathy. EXTREMITIES: Normal range of motion. No lower extremity edema. SKIN: Warm, dry, no rash. NEURO: No focal deficits. Alert and oriented. Answering questions. Following commands. Normal speech without aphasia or dysarthria. PSYCH: Normal mood and affect. Course Vital Signs Vital signs: Vital Signs Temperature 97.5 F L 12/05/24 07:44 Pulse Rate 71 06/22/25 07:44 Respiratory Rate 16 12/05/24 07:44 Blood Pressure 138/92 H 12/05/24 07:44 Pulse Oximetry 99 12/05/24 07:44 Oxygen Delivery Room Air 12/05/24 07:44 Temperature 97.6 F 12/05/24 11:37 Pulse Rate 63 12/05/24 11:37 Respiratory Rate 13 12/05/24 11:37 Blood Pressure 124/98 H 12/05/24 11:37 Pulse Oximetry 98 12/05/24 11:37 Oxygen Delivery Room Air 12/05/24 07:44 MDM - Male Genitourinary MDM Narrative Medical decision making narrative: Patient presents iwth L testicle pain started 12/02 then migrated and became LLQ abdominal pain/groin pain. In the emergency department he is afebrile with acceptable vital signs although elevated diastolic blood pressure. Urinalysis unremarkable. Nonspecific scrotal edema on ultrasound. CBC is without leukocytosis or anemia. Lactic acid normal. Only mild hyponatremia. Normal renal function. LLQ tenderness supports diagnosis of diverticulitis which is seen on CT. Colovesical fistula considered but not appreciated on imaging though patient described not necessarily dysuria but a strange sensation with urination. No intestinal obstruction on imaging. STI testing negative. Outpatient PO antibiotics covering gram negative aerobic and anaerobic bacteria will be initiated in the form of cipro 500mg BID and metronidazole 500mg q 6 hr for 7 days. He is also given prescriptions for acetaminophen and Bentyl with narcotics [with bowel regimen] for pain control. Prescription monitoring program is reviewed and shows that patient received Xyosted testosterone injections but no opiate medications filled since February 2024. Advised follow up with gastroenterology and, if testicle pain persists, . Provided referral info for both. Stable for discharge but given ED return precautions. Differential Diagnosis Differential diagnosis: Likely urinary tract infection, epididymitis, prostatitis, inguinal hernia and other (Hernia, diverticulitis, hydrocele, varicocele; orchitis; testicular torsion) Lab Data Attestation: I reviewed the patient's lab results. 12/05/24 09:27 12/05/24 09:27 Labs: Lab Results 12/05/24 12/05/24 Range/Units 08:46 09:27 WBC 6.7 (4.5-10.0) K/mm3 RBC 5.02 (4.6-6.20) M/mm3 Hgb 14.5 (14.0-18.0) g/dL Hct 45.4 (42.0-52.0) % MCV 90.4 (80-100) fl MCH 28.9 (26-34) pg MCHC 31.9 L (32-36) g/dl RDW 14.0 (11.5-14.5) % Plt Count 192 (150-375) k/mm3 MPV 10.7 H (7.4-10.4) fl Immature Gran % (Auto) 0.7 H (0-0.5) % Neut % (Auto) 59.5 (45.5-73.1) % Lymph % (Auto) 24.0 (18.3-44.2) % [place] % (Auto) 14.8 H (2.6-8.5) % Eos % (Auto) 0.6 (0-4.4) % Baso % (Auto) 0.4 (0.2-1.2) % Lymph # (Auto) 1.60 (0.9-3.2) K/mm3 [place] # (Auto) 1.0 H (0.1-0.6) K/mm3 Eos # (Auto) 0.0 (0-0.3) K/mm3 Baso # (Auto) 0.0 (0.0-0.1) K/mm3 Abs Immat Gran (auto) 0.05 H (0.00-0.031) K/mm3 Absolute Neuts (auto) 4.0 (1.3-6.7) K/mm3 Absolute Nucleated RBC 0.000 (0.0-0.012) K/mm3 Nucleated RBC % 0.0 (0.0-0.2) % Sodium 136 L (137-145) mmol/L Potassium 3.5 (3.4-5.0) mmol/L Chloride 101 (98-107) mmol/L Carbon Dioxide 27 (22-30) mmol/L Anion Gap 8 (4-12) mmol/L BUN 17 (9-20) mg/dL Creatinine 1.11 (0.7-1.3) mg/dL Estim Creat Clear Calc 78 ml/min Estimated GFR > 60 (59 - ) Glucose 110 (65-110) mg/dL Lactic Acid 0.9 (0.7-2.0) mmol/L Calcium 9.3 (8.4-10.2) mg/dL Total Bilirubin 0.7 (0.2-1.3) mg/dL AST 33 (17-59) U/L ALT 25 (6-50) U/L Alkaline Phosphatase 53 (38-126) U/L Total Protein 7.4 (6.3-8.2) g/dL Albumin 4.1 (3.5-5.1) g/dL Urine Color Yellow (Yellow) Urine Appearance Clear (Clear) Urine pH 5.5 (5.0-9.0) Ur Specific [place] 1.025 (1.001-1.035) Urine Protein Negative (Negative) mg/dL Urine Glucose (UA) Negative (Negative) mg/dL Urine Ketones Negative (Negative) mg/dL Ur Blood (Man) Negative (Negative) Urine Nitrate Negative (Negative) Urine Bilirubin Negative (Negative) Urine Urobilinogen 0.2 (<2.0) mg/dL Leukocyte Esterase Rfl Negative (Negative) NGA/UL C. trachomatis (PCR) Not detected (NOT DETECTE) N. gonorrhoeae (PCR) Not detected (NOT DETECTE) T. vaginalis (PCR) Not detected (NOT DETECTE) Imaging Data Radiologist's impression: Impression: Mild diffuse scrotal wall thickening/edema, nonspecific. No evidence for testicular mass or torsion. Impression: Acute sigmoid diverticulitis. No abscess, free air, or bowel obstruction. Discharge Plan Discharge Clinical Impression: Edema of scrotum, Left testicular pain, Sigmoid diverticulitis Patient Disposition: Home Condition: Stable Instructions: Antibiotic Form, Metronidazole (By mouth), Diverticulitis (ED), Narcotic Safety (ED), Testicle Pain (ED), Diverticulitis Diet (ED), Scrotal Pain (ED) Additional Instructions: Take antibiotics as prescribed. You received your 1st dose in the emergency department. As we discussed, do not drink alcohol while taking the metronidazole/Flagyl as it creates a reaction that will make you feel sick. Acetaminophen/Tylenol is safe to take at maximum 4000 mg per day. The Bentyl/dicyclomine can help with cramping since it works on the smooth muscle of the GI tract. For breakthrough pain, short course of opiate/narcotic medications has been prescribed. This can cause you to be more constipated so bowel regimen has also been prescribed. The credit union field examiner you previously saw is no longer at [facility]. You can follow-up with the credit union field examiner listed below to discuss possible post-flare colonoscopy. If testicle pain/scrotal edema persists after treating diveticulitis flare, follow up with urology (listed below). Return to the Emergency Department immediately if the pain worsens, develops fever, persistent and uncontrolled vomiting, or for any new symptoms or concerns. Patient Language: Turkish Prescriptions: New ciprofloxacin HCl [Cipro] 500 mg tablet 500 mg PO Q12H 7 Days Qty: 14 0RF Rx Instructions: Start 12/05 PM (received first dose in ED AM) metronidazole 500 mg tablet 500 mg PO QID 7 Days Qty: 28 0RF Rx Instructions: received first dose ED 11am 12/05 acetaminophen 500 mg capsule 1,000 mg PO Q6H PRN (Reason: pain) Qty: 30 0RF dicyclomine 10 mg capsule 20 mg PO BID PRN (Reason: abdominal pain) Qty: 20 0RF oxycodone 5 mg tablet 5 mg PO Q8H PRN (Reason: pain) 5 Days Qty: 10 0RF docusate sodium [Colace] 100 mg capsule 100 mg PO DAILY PRN (Reason: constipation) Qty: 14 0RF No Action diltiazem HCl 90 mg capsule,extended release 12 hr See Rx Instructions .ROUTE .COMPLEX Qty: 360 0RF Dose Instruction: Take 2 capsules by mouth twice daily Rx Instructions: Take 2 capsules by mouth twice daily Xyosted 75 mg/0.5 mL auto-injector 150 mg subcut WEEKLY coQ10 (ubiquinol) 100 mg Capsule 100 mg PO HS sildenafil [Viagra] 50 mg tablet 50 mg PO PRN PRN (Reason: sexual activity) Rx Instructions: administer 30 minutes to 4 hours before activity multivitamin Tablet 1 tablet PO DAILY niacin 500 mg capsule, extended release 500 mg PO .QHS turmeric root extract 500 mg capsule 500 mg PO DAILY cholecalciferol (vitamin D3) 125 mcg (5,000 unit) capsule 5,000 unit PO DAILY rosuvastatin [Crestor] 5 mg tablet 5 mg PO DAILY Qty: 90 1RF Patient Comments: AT HS acetaminophen [Tylenol Arthritis Pain] 650 mg tablet extended release 1,300 mg PO Q12H PRN (Reason: Pain) Qty: 60 2RF meloxicam 7.5 mg tablet 7.5 mg PO BID Qty: 60 2RF losartan-hydrochlorothiazide 100-25 mg tablet 1 tablet PO DAILY Qty: 90 1RF omeprazole 20 mg capsule,delayed release(DR/EC) 20 mg PO DAILY Qty: 90 1RF Follow-up/Referrals: Ynes Ocasio APRN [Primary Care Provider] - Lopez Aguilera MD [Physician] - Artur Aparicio MD [Physician] - (Urology) Stand Alone Forms: Work/School Release IP Time of Disposition: 11:21
[2024-12-05] MEDS: HYDROmorphone HCL INJ (*CRX) 2 MG/ML VIAL 1 MG IV PUSH (09:35)
[2024-12-05 09:36] LABS: Basophils Percent Auto 0.4 % (0.2-1.2); Eosinophils Percent Auto 0.6 % (0-4.4); Hematocrit 45.4 % (42.0-52.0); Hemoglobin 14.5 g/dL (14.0-18.0); Immature Granulocyte Absolute 0.05 K/mm3 (0.00-0.031); Immature Granulocyte Percent A 0.7 % (0-0.5); Mean Corpuscular HGB Conc 31.9 g/dl (32-36); Mean Corpuscular Hemoglobin 28.9 pg (26-34); Mean Corpuscular Volume 90.4 fl (80-100); Mean Platelet Volume 10.7 fl (7.4-10.4); Monocytes Percent Auto 14.8 % (2.6-8.5); Neutrophils Percent Auto 59.5 % (45.5-73.1); Platelet Count Result 192 k/mm3 (150-375); Red Blood Count 5.02 M/mm3 (4.6-6.20); White Blood Count 6.7 K/mm3 (4.5-10.0)
[2024-12-05 09:42] VITALS: BP 127/90; PULSE 68; RESP 13; O2SAT 96
[2024-12-05 09:48] LABS: Lactic Acid Reflex 0.9 mmol/L (0.7-2.0)
[2024-12-05 09:49] LABS: Alanine Aminotransferase 25 U/L (6-50); Albumin Level 4.1 g/dL (3.5-5.1); Alkaline Phosphatase 53 U/L (38-126); Anion Gap 8 mmol/L (4-12); Aspartate Amino Transferase 33 U/L (17-59); Bilirubin,Total 0.7 mg/dL (0.2-1.3); Blood Urea Nitrogen 17 mg/dL (9-20); Calcium 9.3 mg/dL (8.4-10.2); Carbon Dioxide 27 mmol/L (22-30); Chloride 101 mmol/L (98-107); Estimated CRCL calculation 78 ml/min; Estimated Glomerular Filt Rate > 60; Glucose 110 mg/dL (65-110); Potassium 3.5 mmol/L (3.4-5.0); Sodium 136 mmol/L (137-145); Total Protein 7.4 g/dL (6.3-8.2)
[2024-12-05 10:01] LABS: Trichomonas Vag PCR NOT DETECTED (NOT DETECTE)
[2024-12-05 10:24] LABS: Chlamydia trachomatis NOT DETECTED (NOT DETECTE); Neisseria gonorrhoeae PCR NOT DETECTED (NOT DETECTE)
[2024-12-05] MEDS: CIPROFLOXACIN 500 MG TAB PO (11:04)
[2024-12-05] MEDS: DICYCLOMINE HCL 10 MG CAPSULE 20 MG PO (11:04)
[2024-12-05] MEDS: metroNIDAZOLE 500 MG TABLET PO (11:04)
[2024-12-05 11:05] VITALS: BP 121/88; PULSE 67; RESP 19; TEMP 36.7; O2SAT 97
[2024-12-05] MEDS: ACETAMINOPHEN 500 MG TABLET 1000 MG PO (11:05)
[2024-12-05] MEDS: KETOROLAC 15 MG/ML VIAL (*BKC) IV PUSH (11:05)
[2024-12-05 11:37] VITALS: BP 124/98; PULSE 63; RESP 13; TEMP 36.4; O2SAT 98
== END 2024-12-05 11:41 | disposition home or self-care (01) ==
PROVIDERS: Emergency Provider Student in an Organized Health Care Education/Training Program; PCP Nurse Practitioner Family
DX: K57.32 Diverticulitis of large intestine without perforation or abscess without bleeding (principal); N50.89 Other specified disorders of the male genital organs; N50.812 Left testicular pain; I10 Essential (primary) hypertension; E78.5 Hyperlipidemia, unspecified; G47.33 Obstructive sleep apnea (adult) (pediatric); K21.9 Gastro-esophageal reflux disease without esophagitis; M17.12 Unilateral primary osteoarthritis, left knee; Z96.652 Presence of left artificial knee joint
CPT/HCPCS: 36415; 74177; 76870; 80053; 81003; 83605; 85025; 87491; 87591; 87661; 93976; 96374; 96375; 99284; A9270; J1171; J1885; Q9967

== ENCOUNTER 2025-04-19 07:06 | Outpatient (CLI) | payer OTHER, SELFPAY ==
--- OUTSIDE RECORDS SUMMARY | 2025-04-19 07:10 | XMS_ITS | Clinical Summary ---
Author Organization [facility] [employer] Address [address] [place] [address] Care Team Providers Care Correctional Officer Name Role Phone Casimiro Davis MD Primary Care Provider [phone] Source Comments [facility] [employer],non-owned Affiliates and Associated Physician Practices is amultiple site organization consisting of ambulatory clinics and hospital sitesin [place], [place], [place] and [place]. This disclosure is being madepursuant to the Care Everywhere program and may not contain all information available regarding this patient. Last updated 18.[facility] [employer] [facility] Allergies Active Allergy Reactions Criticality Noted Date Comments Amoxicillin Vomiting 02/26/2024 Medications * Be aware that medications may not be up to date on this document. Always verify current medications with the patient. 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 Gender Identity Not on file Sexual Orientation [...] VACCINE (3 of 3) 04/16/2023 02/19/2023, 12/20 DEPRESSION SCREENING 06/16/2024 COVID-19 VACCINE (5 - 2024- season) 2025 05/24/2023, 07/01/2021, 11/19/2020, Additional history exists INFLUENZA VACCINE (#1) 2025 05/24/2023 SCREENING FOR DIABETES 03/01/2027 4, [...] 7 - 26 mg/dL 03/01/2024 12:52 PM [facility] Creatinine 0.93 0.71 - 1.16 mg/dL 03/01/2024 12:52 PM [facility] Sodium 140 136 - 145 mmol/L 03/01/2024 12:52 PM [facility] Potassium 3.6 3.5 - 4.5 mmol/L 03/01/2024 12:52 PM [facility] Chloride 108(H) 98 - 107 mmol/L 03/01/2024 12:52 PM [facility] CO2 21(L) 22 - 29 mmol/L 03/01/2024 12:52 PM [facility] Glucose 101 70 - 115 mg/dL 03/01/2024 12:52 PM [facility] Calcium 9.2 8.4 - 10.2 mg/dL 03/01/2024 12:52 PM [facility] Protein Total 7.4 6.0 - 8.3 g/dL 03/01/2024 12:52 PM [facility] Albumin 3.3(L) 3.4 - 5.0 g/dL 03/01/2024 12:52 PM [facility] Bilirubin Total 0.4 0.2 - 1.2 mg/dL 03/01/2024 12:52 PM [facility] Alkaline Phosphatase 78 40 - 150 U/L 03/01/2024 12:52 PM [facility] ALT 24 5 - 55 U/L 03/01/2024 12:52 PM [facility] AST 24 5 - 34 U/L 03/01/2024 12:52 PM [facility] Anion Gap 11 6 - 16 03/01/2024 12:52 PM [facility] BUN/Creatinine Ratio 12 7 - 23 03/01/2024 12:52 PM [facility] Osmolality Calculated 290 275 - 295 mOsm/kg 03/01/2024 12:52 PM [facility] Albumin/Globulin Ratio 0.8(L) 1.1 - 2.3 03/01/2024 12:52 PM [facility] eGFR by CKD-EPI >90 >=90 mL/min/1.7 3 m2 03/01/2024 12:52 PM [facility] Blood BLOOD SPECIMEN / Unknown Lab Venipuncture / Unknown 03/01/2024 9:07 AM CDT 03/01/2024 9:38 AM T us Tomi Luna MD LAB - CHEMISTRY ORDERABLE S Final Result [facility] [address] [place] [id number], [facility] [phone] * HEPATITIS C AB SCREEN RFLX NAAT QUANT (02/26/2024 4:21 PM CDT) Hepatitis C Antibody Non-react jade Non-reac tive 02/26/2024 5:48 PM [facility] Comment:Hepatitis C Antibody screen indicates no serologic [...] Frank Cunningham MD LAB - CHEMISTRY ORDERABLES Fi nal Result [facility] [address] [place] [address], [facility] [phone] from Last 3 Months or Most Recently Relevant to Health Maintenance Insurance HEALTH CARE Member Subscriber Plan / Payer (Ef fective 2022-Present) Name:Lukas Monzon Relation to Subscriber:Self Name:Lukas Monzon Payer ID:[id number] (NAIC) Type:[employer] Address: [place] [phone] Advance Directives * Full Code (Latest Code Status on File) Date Activated Date Inactivated Comments 02/26/2024 6:07 PM 03/01/2024 1:36 PM Care Teams Correctional Officer Relationship Specialty Start Date End Date Casimiro Davis MD [address] [place] [address] PCP - General Family Medicine 01/29/24
--- OUTSIDE RECORDS SUMMARY | 2025-04-19 07:10 | XMS_ITS | Clinical Summary ---
Author Organization [facility] Address [facility] [place] [address] Care Team Providers Care Risk Control Representative Name Role Phone Paula Gonzalez MD Primary [...] Td Vaccines ( 1 - Tdap) 02/04/1980 Pneumococcal Vaccine: 50+ Ye ars (1 of 1 - PCV) 2011 Zoster Vaccines (1 of 2) 2011 COVID-19 Vaccine ( - 2024-2 6 season) 2025 Influenza Adult (#1) 2025 RSV Immunization or 60+ Years (1 - 1-dose 75+ series) 02/04/2036 Hepatitis A Vaccines Aged Out No long er eligible based on patient's age to complete this topic Meningococcal B Vaccine Aged Out No l onger eligible based on patient's age to complete this topic Meningococcal Vaccine Aged Out No desiree karlie eligible based on patient's age to complete this topic RSV Immunizations Under 20 Months Aged Out No longer eligible based on patient's age to complete this topic Care Teams Risk Control Representative Relationship Specialty Start Date End Date Paula Gonzalez MD PCP - General 06/25/14
[2025-04-19 08:22] LABS: Hematocrit 48.1 % (42.0-52.0); Hemoglobin 15.6 g/dL (14.0-18.0)
[2025-04-19 09:13] LABS: Prostate Specific Antigen 2.2 ng/mL (< OR = 4.0)
[2025-04-23 23:07] LABS: Estradiol, Sensitive 22.5 pg/mL (8.0-35.0)
== END 2025-04-19 07:07 | disposition home or self-care (01) ==
LOC: ANHLAB 07:08
PROVIDERS: PCP Nurse Practitioner Family; Visit Provider Urology
DX: E29.1 Testicular hypofunction (principal); Z12.5 Encounter for screening for malignant neoplasm of prostate
CPT/HCPCS: 36415; 82670; 84153; 85014; 85018; G0103

== ENCOUNTER 2025-05-02 06:51 | Outpatient (CLI) | payer OTHER, SELFPAY ==
[2025-05-02 08:01] LABS: Hematocrit 46.0 % (42.0-52.0); Hemoglobin 15.0 g/dL (14.0-18.0); Mean Corpuscular HGB Conc 32.6 g/dl (32-36); Mean Corpuscular Hemoglobin 28.6 pg (26-34); Mean Corpuscular Volume 87.8 fl (80-100); Platelet Count Result 169 k/mm3 (150-375); Red Blood Count 5.24 M/mm3 (4.6-6.20); White Blood Count 5.6 K/mm3 (4.5-10.0)
[2025-05-02 08:31] LABS: Alanine Aminotransferase 30 U/L (6-50); Albumin Level 4.1 g/dL (3.5-5.1); Alkaline Phosphatase 60 U/L (38-126); Anion Gap 8 mmol/L (4-12); Aspartate Amino Transferase 37 U/L (17-59); Bilirubin,Total 0.7 mg/dL (0.2-1.3); Blood Urea Nitrogen 15 mg/dL (9-20); Calcium 9.1 mg/dL (8.4-10.2); Carbon Dioxide 25 mmol/L (22-30); Chloride 100 mmol/L (98-107); Cholesterol 217 mg/dL (0-200); Estimated Glomerular Filt Rate > 60; Glucose 116 mg/dL (65-110); HDL Direct 42 mg/dL; Magnesium 2.0 mg/dL (1.6-2.3); Potassium 3.5 mmol/L (3.4-5.0); Sodium 133 mmol/L (137-145); Total Protein 7.6 g/dL (6.3-8.2); Triglycerides 171 mg/dL (<150)
[2025-05-02 08:36] LABS: MALB Creatinine Ratio 3.2 mg/g (0-30)
[2025-05-02 08:39] LABS: Hemoglobin A1C 6.4 % (<5.7)
[2025-05-02 09:00] LABS: Prostate Specific Antigen 2.4 ng/mL (< OR = 4.0)
[2025-05-02 09:19] LABS: Vitamin B12 692.0 pg/mL (239-931)
== END 2025-05-02 06:52 | disposition home or self-care (01) ==
LOC: ANHLAB 06:52
PROVIDERS: PCP Nurse Practitioner Family; Visit Provider Nurse Practitioner Family
DX: R79.0 Abnormal level of blood mineral (principal); Z79.890 Hormone replacement therapy; E11.9 Type 2 diabetes mellitus without complications; I10 Essential (primary) hypertension; I49.1 Atrial premature depolarization; E78.5 Hyperlipidemia, unspecified; R79.89 Other specified abnormal findings of blood chemistry; E66.9 Obesity, unspecified; E55.9 Vitamin D deficiency, unspecified; K11.5 Sialolithiasis; J30.2 Other seasonal allergic rhinitis; J30.9 Allergic rhinitis, unspecified; K21.9 Gastro-esophageal reflux disease without esophagitis; K64.8 Other hemorrhoids; N52.9 Male erectile dysfunction, unspecified; M17.12 Unilateral primary osteoarthritis, left knee; M25.462 Effusion, left knee; M25.512 Pain in left shoulder; G89.29 Other chronic pain; G47.33 Obstructive sleep apnea (adult) (pediatric); Z79.899 Other long term (current) drug therapy; Z12.5 Encounter for screening for malignant neoplasm of prostate
CPT/HCPCS: 36415; 80053; 80061; 82043; 82306; 82607; 82746; 83036; 83735; 84153; 85027; G0103